=== PATIENT | male | born 1990 | race Caucasian/White ===

== ENCOUNTER 2019-01-23 11:04 | Emergency (ER) | payer OTHER, SELFPAY ==
[2019-01-23 11:05] VITALS: BP 163/102; PULSE 113; RESP 17; TEMP 36.2; O2SAT 97; BMI 35.2
--- NOTE | 2019-01-23 11:30 | RAD_ITS ---
STUDY: X-RAY - RIGHT ANKLE REASON FOR EXAM: Male, 28 years old. Lateral pain and swelling following a twisting injury. TECHNIQUE: 3 view(s) of the ankle. COMPARISON: None. FINDINGS: Nondisplaced avulsion type fracture of the posterior tibial malleolus. Nondisplaced oblique fracture of the lateral malleolus. Normal tibiotalar articulation and ankle mortise. Calcaneal spurs. The visualized subtalar, talonavicular, calcaneocuboid and tarsal articulations are normal. Lateral soft tissue swelling. RAD/Ankle min 3 Views IMPRESSION: Nondisplaced oblique fracture of the lateral malleolus and posterior malleolus of the distal tibia with diffuse soft tissue swelling. Electronically Signed: José Miguel Roberson, at 12:18 EDT , Service support ,
[2019-01-23 11:51] VITALS: RESP 14
--- NOTE | 2019-01-23 12:01 | ED.VISSUMM ---
- ER Visit Summary Date of Service: 01/23/19 Chief Complaint: Right ankle injury History of Present Illness: The patient is a 28 M who slipped today causing an injury to the right ankle. He states he heard a snap. He notes pain and swelling laterally to the ankle. Denies any other injuries. Physical Examination: There is pain and swelling over the lateral malleolus. No fifth metatarsal pain no fibular head pain. Neurovascular intact distal. There is no medial malleoli or posterior malleoli or pain. Test Results: X-rays revealed a nondisplaced distal fibular fracture. Emergency Department Course and Treatment: The patient will be given crutches and a walking boot. I will have him follow-up with podiatry. Impression: 1. Right distal fibula fracture This note was generated with [employer] dictation software. It may contain incorrect words, spelling, and punctuation that were not noted in review of the chart prior to signing ED Disposition - Plan for ED Patient: Disposition: Home or Assisted Living Instructions: ANKLE FRACTURE (Distal Fibula), closed Referrals: Arpit Bennett DPM [STAFF PHYSICIAN] - As soon as possible
[2019-01-23 12:35] VITALS: PULSE 102; RESP 17; O2SAT 100
== END 2019-01-23 12:36 | disposition home or self-care (01) ==
PROVIDERS: Emergency Provider Emergency Medicine; Family Provider Family Medicine; PCP Family Medicine
DX: S82.64XA Nondisplaced fracture of lateral malleolus of right fibula, initial encounter for closed fracture (principal); W01.0XXA Fall on same level from slipping, tripping and stumbling without subsequent striking against object, initial encounter; Y93.9 Activity, unspecified; Y92.9 Unspecified place or not applicable
CPT/HCPCS: 73610; 99284

== ENCOUNTER 2019-04-13 12:26 | Emergency (ER) | payer SELFPAY ==
[2019-04-13 12:28] VITALS: BP 140/70; PULSE 125; RESP 18; TEMP 36.2; O2SAT 97; BMI 36.9
--- NOTE | 2019-04-13 12:34 | RAD_ITS ---
STUDY: X-RAY - LEFT HAND REASON FOR EXAM: Injury of the middle finger from throwing. TECHNIQUE: 3 view(s) of the hand. COMPARISON: None. FINDINGS: Normal radiocarpal articulation. Normal distal radioulnar joint. Normal visualized carpal bones. Normal carpal articulations Normal carpometacarpal articulation of the thumb. Normal second through fifth carpometacarpal joints. Normal metacarpi. Normal metacarpophalangeal joint of the thumb. Normal interphalangeal joint of the thumb. Normal proximal and distal phalanges of the thumb. Normal metacarpophalangeal joints of the second through fifth fingers. There is dorsal dislocation of the third proximal interphalangeal joint with a very small osseous avulsion fracture at the palmar aspect of the articulation. There is soft tissue swelling over the third digit. RAD/Hand Min 3 Views IMPRESSION: Dorsal dislocation of the third proximal interphalangeal joint with very small avulsion fracture. Electronically Signed: Carter Villela MD at 13:02 EDT Tel , Service support ,
--- NOTE | 2019-04-13 12:38 | ED.VIS.GEN ---
History of Present Illness Chief Complaint: Upper Extremity Injury Informant: Patient Onset: Today Context: Sudden Onset Current Severity: Moderate Maximum Severity: Moderate Narrative: The patient presents to the emergency department with injury to his left middle finger. Patient states he was playing catch with his friend. He caught a football and it bent his finger back. He thinks that he may have dislocated his finger. The patient is right-hand dominant. He denies any other injury. He is otherwise been in his normal state of health. Prior similar symptoms: No Recent Illness/Hospitalization: No Past Medical History - Allergies and Home Meds Allergies/Adverse Reactions: Allergies No Known Allergies Allergy (Verified 04/13/19 12:29) Primary Care Physician: Karlos Mello MD [STAFF PHYSICIAN] - Prior records reviewed: Yes Past Medical History: None Surgical History: no surgical history Smoking Status: Unknown if ever smoked Review of Systems General: Denies: Chills, Fever, Sweats Eyes: Denies: Visual changes - bilaterally, Diplopia ENT: Denies: Rhinorrhea, Sore throat Cardiovascular: Denies: Chest pain, Palpitations Respiratory: Denies: Dyspnea, Cough, Dyspnea on exertion Gastrointestinal: Denies: Abdominal pain, Nausea, Vomiting, Diarrhea, Melena, Hematochezia Genitourinary: Denies: Dysuria, Hematuria, Frequency Musculoskeletal: Denies: Back pain, Extremity Pain Skin: Denies: Rash, Wounds Neurological: Denies: Headache, Weakness, Numbness Physical Exam Vital Signs/Narrative: Vital Signs Temp Pulse Resp BP Pulse Ox 04/13/19 12:28 97.2 F L 125 H 18 140/70 H 97 Inital Vital Signs reviewed: Yes General: Well nourished, Well developed, No Acute Distress Head: Normocephalic, Atraumatic Eyes: Perrl, EOMI ENT: Moist mucous membranes, No rhinorrhea Neck: Supple, Nontender Cardiovascular: Regular rate, Regular rhythm, No murmurs Respiratory: No distress, CTA bilaterally, Chest nontender Abdomen: Soft, Nontender, Nondistended, Normal bowel sounds Back: Nontender, Normal Inspection Extremities: No edema, Tenderness - Patient does have deformity at the PIP of the left third finger. Sensation is preserved to light touch. Skin: Normal color, No rash Neurological: Alert, Oriented x3, Cranial nerves II-XII grossly intact, Normal Strength, Normal Sensation Psychological: Normal affect, Normal Mood Diagnostic/Tx/Re-eval Clinical Impression(s) from Imaging Studies Hand X-Ray 04/13/19 12:34 IMPRESSION: Dorsal dislocation of the third proximal interphalangeal joint with very small avulsion fracture. Electronically Signed: Carter Villela MD at 13:02 EDT Tel , Service support , - Medical Decision Making The patient underwent plain films. There was a dorsal dislocation with a small avulsion fracture. The patient underwent digital block. With traction, the dislocation was able to reduced. The patient did have full range of motion. He had no further pain. He is placed in AlumaFoam splint. He will be given outpatient follow-up. Patient be discharged home. Impression 1. Dislocation of the left third PIP joint with reduction ED Disposition - Plan for ED Patient: Instructions: Dislocated Finger Referrals: Karlos Mello MD [STAFF PHYSICIAN] -
[2019-04-13] MEDS: Bupivacaine Mpf 0.5% 30 ML VIAL INFILT (13:00)
== END 2019-04-13 13:47 | disposition home or self-care (01) ==
LOC: ED 12:49
PROVIDERS: Emergency Provider Emergency Medicine
DX: S63.283A Dislocation of proximal interphalangeal joint of left middle finger, initial encounter (principal); W21.01XA Struck by football, initial encounter; Y93.89 Activity, other specified; Y99.8 Other external cause status
CPT/HCPCS: 26770; 73130; 99283

== ENCOUNTER 2023-03-22 09:31 | Emergency (ER) | payer SELFPAY ==
[2023-03-22 09:31] VITALS: BP 140/90; PULSE 108; RESP 18; TEMP 36.6; O2SAT 98; BMI 38.7
--- NOTE | 2023-03-22 10:04 | EDS_ITS ---
HPI History of Present Illness Chief Complaint: Laceration Informant: patient Narrative Narrative: [id number] male presents for right hand injury with laceration 45 minutes prior to arrival. Cleaning a fish tank tipped over glass broke however did not shatter. Laceration dorsal aspect right hand tetanus unknown. No anticoagulation medicines. Initial bleeding now controlled. History of fifth finger fracture in high school with pitting with healing deformities. This is chronic. Tetanus Immunization: Unknown [facility] Medical History (Updated 03/22/23 @ 11:[address] Topher Nolasco DO) Hx of fracture of ankle Home Medications NK 01/23/19 [History Last Taken Unknown] Allergy/AdvReac Type Severity Reaction Status Date / Time No Known Allergies Allergy Verified 04/13/19 12:29 Social History Smoking Status: Current some day smoker tobacco type: cigarettes ROS ROS ED Constitutional Constitutional ED: Denies chills, fever(s) or sweats Eyes Eyes: Denies change in vision ENT ENT ED: Denies dysphagia or sore throat Cardiovascular Cardiovascular: Denies chest pain, leg edema, palpitations or racing heartbeat Respiratory/Chest Respiratory/Chest: Denies cough, dyspnea or dyspnea on exertion Gastrointestinal Gastrointestinal: Denies abdominal pain, diarrhea, nausea or vomiting Genitourinary Genitourinary ED: Denies dysuria, hematuria or urinary frequency Musculoskeletal Musculoskeletal: Reports extremity pain; Denies back pain or neck pain Integumentary Reports wounds; Denies rash Neurologic Neurologic: Denies headache(s), paresthesias or weakness EXAM Physical Exam Const Vital Signs: 03/22/23 09:31 Temperature 97.9 F Temperature Source Temporal Pulse Rate 108 H Respiratory Rate 18 Blood Pressure 140/90 H Blood Pressure Mean 106 Pulse Ox 98 Oxygen Delivery Method Room Air Positive well nourished and well developed General Appearance ED: well developed and NAD HEENT Reports moist mucous membranes normocephalic and atraumatic Eyes PERRL, EOMs intact bilaterally and conjunctivae normal General Eye ED: Yes normal appearance of both eyes Neck no lymphadenopathy and supple General: Negative for tenderness Chest Wall Chest: Negative for tenderness Resp normal respiratory effort and normal air movement Effort and Inspection: symmetric chest movement; Negative for respiratory distress Cardio regular rate, regular rhythm and no murmurs Peripheral Pulses: pulses 2+ throughout GI normal to inspection, nondistended, normoactive bowel sounds and non-tender Palpation: Negative for guarding or rebound tenderness present Back/Spine no CVA tenderness and no thoracic nor lumbar tenderness Extremity Extremity Narrative: Right upper extremity: 1 cm laceration dorsal distal fifth metacarpal. No active bleeding. Chronic flexion deformity at the PIP joint. Able to extend at the MCP with no difficulties. Minimal tenderness distal metacarpal. General Extremety ED: Negative for edema or tenderness General Extremity: Negative for edema Neuro oriented x3 and no sensory deficits noted Sensorium / Orientation: awake and alert Skin no rashes or lesions noted and no wounds MDM MDM MDM Narrative Medical decision making narrative: Interventions / MDM: Differential diagnosis: Hand contusion, hand laceration Diagnosis considered but do not suspect: fracture: X-ray negative.. My EKG interpretation: N/A Imaging independently reviewed and interpreted by myself: Right hand x-ray 3 views: No fracture, no radiopaque foreign bodies External documents reviewed: N/A Test considered but not ordered:N/A ED course: Patient in injury with laceration. X-ray ordered tetanus updated. X-ray negative. Laceration repaired. Outpatient follow-up wound check and suture removal. All questions were answered. Procedure note: Normal sterile conditions. Verbal consent. 1 cc 1% lidocaine used for local analgesia. Copious flushing with normal saline 250 cc. Dark blood noted rebleed with flushing, two 5-0 nylon simple interrupted sutures placed with good approximation. Hemostasis achieved. Dressing placed by myself. Patient tolerated procedure well. Re-evaluation: stable Disposition discussed with patient/family/significant other: Patient Case discussed with consulting clinician: N/A This note was generated with [employer] dictation software. It may contain incorrect words, spelling, and punctuation that were not noted in checking the note before signing. Discharge Plan Triage Chief Complaint: Laceration ED Provider: Topher Nolasco Dx/Rx/DC Orders Clinical Impression: Tetanus toxoid vaccination administered at current visit, Laceration of right hand Instructions: ED Laceration, Hand: All Closures Prescriptions: No Action NK Primary Care Provider: Fransico Velasquez Referrals: Care Physician,No Primary [Non-Staff] - Activity Restrictions/Additional Instructions: X-ray negative for tetanus updated. 2 sutures placed to your hand. Follow-up with your doctor in 7 to 10 days for wound check and suture removal. Disposition Disposition: Home, Self Care Discharge Date/Time: 03/22/23 11:49
--- NOTE | 2023-03-22 10:27 | RAD_ITS ---
INDICATION: injury EXAMINATION/TECHNIQUE: X-RAY - RIGHT XR Hand Min 3 Views 3 VIEWS COMPARISON: None. FINDINGS: SOFT TISSUES: No soft tissue swelling or gas. No radiopaque foreign body. BONES/JOINTS: Old fracture of the head of the fifth metacarpal and proximal phalanx of the fifth finger. The remainder of the osseous structures appear intact. No demonstrated acute fracture. Preservation of the joint space.. No sclerotic or destructive changes observed. RAD/Hand Min 3 Views IMPRESSION: No demonstrated acute fracture. Electronically Signed: Foreign Wells MD at 10:45 EDT ,
[2023-03-22] MEDS: Diphth,Pertuss(Acell),Tet Vac 0.5 ML Vial IM (10:31)
[2023-03-22] MEDS: Lidocaine 1% (20 ml mdv) 20 ML Vial INFILT (10:53)
== END 2023-03-22 11:49 | disposition home or self-care (01) ==
PROVIDERS: Emergency Provider Emergency Medicine; PCP Family Medicine; Visit Provider Emergency Medicine
DX: S61.411A Laceration without foreign body of right hand, initial encounter (principal); F17.210 Nicotine dependence, cigarettes, uncomplicated; W25.XXXA Contact with sharp glass, initial encounter; Z23 Encounter for immunization
CPT/HCPCS: 12001; 73130; 90715; 99282

== ENCOUNTER → 2024-08-31 | Outpatient (CLI) | payer SELFPAY ==
[2024-08-31 13:45] LABS: Absolute Lymphocyte Count 1.83 X10^3/uL (0.83-4.51); Basophil# 0.06 X10^3/uL; Basophil% 0.9 % (0-1); Eosinophil# 0.17 X10^3/uL; Eosinophils% 2.4 % (0-5); Hematocrit 51.9 % (40-54); Hemoglobin 17.2 g/dL (13.0-16.5); Lymphocyte # 1.83 X10^3/ul (0.83-4.51); Lymphocyte % 26.3 % (19-41); Mean Corp Hgb Conc 33.1 g/dL (32-36); Mean Corpuscular Hgb 29.6 pg (27.0-32.0); Mean Corpuscular Volume 89.2 fL (80-94); Mean Platelet Vol. 9.5 fl (6.2-12.0); Monocyte# 0.82 X10^3/uL; Monocyte% 11.8 % (0-10); NRBC Flagged by Analyzer 0 % (0-5); Neutrophil # 4.04 X10^3/uL (2.7-7.7); Platelet Count 212 K/mm3 (150-450); RBC Distribution Width CV 13.3 % (11.6-14.6); RBC Distribution Width SD 43.5 fl (35.1-43.9); Red Blood Count 5.82 M/mm3 (4.6-6.2)
[2024-08-31 13:48] LABS: AST(SGOT) 45 U/L (15-37); Alanine Aminotransfer ALT/SGPT 72 U/L (16-61); Albumin, Serum 3.7 g/dL (3.2-5.0); Alkaline Phosphatase 73 U/L (45-117); Anion Gap 6 (5-15); BUN 10 mg/dL (7-18); BUN/Creat Ratio 10.8 RATIO (10-20); Chloride 106 mmol/L (98-107); Cholesterol 198 mg/dL (200); Creatinine, Serum 0.92 mg/dL (0.70-1.30); EST Glomerular Filtration Rate 100 mL/min (>60); Est Glom Filt Rate - Afr Amer 121 mL/min (>60); Globulin 3.6 g/dL (2.2-4.2); Glucose 95 mg/dL (74-106); High Density Lipoprotein 40 mg/dL; Potassium 3.8 mmol/L (3.5-5.1); Protein, Total 7.3 g/dL (6.4-8.2); Sodium Level 140 mmol/L (136-145); Triglycerides 183 mg/dL; Very Low Density Lipoprotein 37 mg/dL (5-40)
[2024-08-31 14:06] LABS: Vitamin D,25 Hydroxy 6.7 ng/mL
== END | disposition home or self-care (01) ==
LOC: BFHLAB 11:21
PROVIDERS: PCP Family Medicine; Referring Provider Family Medicine; Visit Provider Family Medicine
DX: Z00.01 Encounter for general adult medical examination with abnormal findings (principal); R53.83 Other fatigue
CPT/HCPCS: 36415; 80053; 80061; 82306; 85025

== ENCOUNTER → 2024-10-29 | Outpatient (CLI) | payer MEDICAID, SELFPAY ==
[2024-10-29 12:49] LABS: Erythrocyte Sedimentation Rate 4 mm/hr (0-20)
[2024-10-29 13:14] LABS: AST(SGOT) 33 U/L (<=37); Alanine Aminotransfer ALT/SGPT 50 U/L (<=46); Albumin, Serum 4.3 g/dL (3.5-5.0); Alkaline Phosphatase 77 U/L (40-129); Bilirubin, Direct 0.15 mg/dL (0.00-0.30); Globulin 2.6 g/dL (2.2-4.2); Protein, Total 6.9 g/dL (5.9-8.4); Total Bilirubin 0.39 mg/dL (0.00-1.30)
[2024-10-29 14:08] LABS: CRP < 3.00 mg/L (0.0-3.0)
[2024-10-30 16:08] LABS: Endomysial Antibody IgA Negative (Negative); Immunoglobulin A 311 mg/dL (90-386); t-Transglutaminase IgA <2 U/mL (0-3)
== END | disposition home or self-care (01) ==
LOC: BFHLAB 09:06
PROVIDERS: PCP Family Medicine; Visit Provider Nurse Practitioner Family
DX: R19.7 Diarrhea, unspecified (principal); R74.8 Abnormal levels of other serum enzymes; R63.5 Abnormal weight gain
CPT/HCPCS: 36415; 80076; 82784; 83516; 84439; 84443; 85652; 86003; 86005; 86140; 86255

== ENCOUNTER → 2024-12-12 | Outpatient (CLI) | payer MEDICAID, SELFPAY | END | disposition home or self-care (01) | LOC: MTLAB 12:37 | PROVIDERS: PCP Family Medicine; Referring Provider Nurse Practitioner Family; Visit Provider Nurse Practitioner Family | DX: R19.7 Diarrhea, unspecified (principal) | CPT/HCPCS: 83630; 87177; 87209; 87493; 87506 ==

== ENCOUNTER 2024-12-25 06:58 | Day surgery (SDC) | payer MEDICAID, SELFPAY ==
[2024-12-25] VITALS (7 sets, daily range): BP systolic 110–133; BP diastolic 62–89; PULSE 72–90; RESP 16–18; TEMP 36.2–37.1; O2SAT 96–100; BMI 42.2
--- OUTSIDE RECORDS SUMMARY | 2024-12-25 07:02 | XMS RPT_ITS | CCD ---
Author Organization [facility] Care Team Providers Care Pet Stylist Name Role Phone Dr. Fransico Velasquez DO Primary Care Provider Dr. Fransico Velasquez DO Attending Provider Dr. Fransico Velasquez DO Referring Provider Antwan NUTRITIONAL HEALTH COACH-C, Vi Attending Provider Antwan NUTRITIONAL HEALTH COACH-C, Vi Referring Provider [phone] Yasir MIJARES, Dr. Cam Charles Attending Provider Fransico Velasquez Primary Care Unavailable Vi Moncada Attending Unavailable Fransico Velasquez Referring Unavailable Fransico Velasquez Attending Unavailable Fransico Velasquez Primary Care Unavailable Fransico Velasquez Primary Care Unavailable Fransico Velasquez Referring Unavailable Cam Cooley Attending Unavailable Fransico Velasquez Primary Care Unavailable Fransico Velasquez Referring Unavailable Cam Cooley Attending Unavailable Fransico Velasquez Primary Care Unavailable Vi Moncada Referring Unavailable Vi Moncada Attending Unavailable Medications Current Medications Medication Drug Class(es) Dates Sig (Normalized) Sig (Original) cholecalciferol 0.125 mg oral capsule (2 sources) Vitamin D Start: 12-13-2024 take 1 capsule by mouth once daily Cholecalciferol (Vitamin D3) 125 mcg (5,000 unit) capsule Active 125 ug PO daily December 13, 2024 12:00am FLUoxetine 40 mg oral capsule (2 sources) Serotonin Reuptake Inhibitor Start: 12-13-2024 take 1 capsule by mouth at bedtime Fluoxetine 40 mg capsule Active 40 mg PO AT BEDTIME December 13, 2024 12:00am pantoprazole 20 mg delayed release oral tablet (2 sources) Proton Pump Inhibitor Start: 12-13-2024 take 1 tablet by mouth once daily in the morning Pantoprazole 20 mg tablet,delayed release (DR/EC) Active 20 mg PO EVERY MORNING December 13, 2024 12:00am Problems Problem Classification Problem Date Documented Da te Episodic/Chronic Abdominal pain (2 sources) Abdominal pain; Translations: [Unspecified abdominal pain] 12-13-2024 Episodic Esophageal disorders (2 sources) Gastroesophageal reflux disease; Translations: [Gastro-esophageal reflux disease without esophagitis] 12-13-2024 Chronic Immunizations and screening for infectious disease (4 sources) Tetanus toxoid vaccination given; Translations: [Encounter for immunization] 03-22-2023 Episodic Open wounds of extremities (4 sources) Laceration of hand; Translations: [Laceration without foreign body of right hand, initial encounter] 03-22-2023 Episodic Other gastrointestinal disorders (3 sources) Diarrhea; Translations: [Diarrhea, unspecified] 12-13-2024 Episodic Other gastrointestinal disorders (1 source) Diarrhea, unspecified; Translations: [Diarrhea, unspecified] Onset: Episodic Results Test Name Value Interpretation Reference Range Facility [facility] 8623on OP OVA AND PARASITES EXAM, ROUTINE These results were obtained using wet preparation(s) and trichrome stained smear. This test does not include testing for Crytosporidium parvum, Cyclospora, or Microsporidia. One negative specimen does not rule out the possibility of a parasitic infection. TESTING PERFORMED AT [facility]. ORIGINAL REPORT ON FILE IN LAB CONTAINS ADDITIONAL TEST SITE INFORMATION. Ova/Parasite Exam NO OVA, CYSTS, OR PARASITES FOUND. [facility] Comment on above: Performed By: #### L 101.9900, L5530.0009, L5530.0399, L5530.1389, L5530.1169, L501.6710, L501.9520, L5530.1649, L3410.2400, L5530.1669, L5530.1399, L500.3400, L5530.0569, L5530.1479, L5530.1319, L506.0400, L5500.0550, L5530.0479, L5530.0169 #### [facility] [address] [place], [place], [id number] CDIFF (PCR)on 12-13-2024 CDIFF Pending [phone] Presumptive Negative *for epidemiolologic???us e C. Diff PCR Negative- No toxigenic C. Diff Detected Normal [facility] Comment on above: Performed By: #### L 101.9900, L5530.0009, L5530.0399, L5530.1389, L5530.1169, L501.6710, L501.9520, L5530.1649, L3410.2400, L5530.1669, L5530.1399, L500.3400, L5530.0569, L5530.1479, L5530.1319, L506.0400, L5500.0550, L5530.0479, L5530.0169 #### [facility] [address] [place], [place], [id number] ENTERIC PATHOGEN PANEL STOOL on 12-13-2024 EP PANEL Normal Reference Range = Not Detected Not detected for Campylobacter group, Salmonella species, Shigella species, Vibrio Group, Yersinia enterocolitica, EHEC (Shiga Toxin 1, Shiga Toxin 2), Norovirus Gl/Gll, and Rotavirus A. Other common stool pathogens are not detected on this panel include: Aeromonas/Plesiomona s or parasites. Order testing for these organisms separately if suspected. This is an amplified DNA test which makes it both specific and sensitive. CAMPYLOBACTER Not Detected Norovirus Not Detected Rotavirus Not Detected Salmonella Not Detected Shiga Toxin Not Detected Shigella sp. Not Detected VIBRIO Not Detected Yersinia Not Detected Normal [facility] Comment on above: Performed By: #### L 101.9900, L5530.0009, L5530.0399, L5530.1389, L5530.1169, L501.6710, L501.9520, L5530.1649, L3410.2400, L5530.1669, L5530.1399, L500.3400, L5530.0569, L5530.1479, L5530.1319, L506.0400, L5500.0550, L5530.0479, L5530.0169 #### [facility] [address] [place], [address] Stool Lactoferrin/WBCon - WBCST Normal Reference Range = Negative Fecal WBC Lactoferrin Negative: No Fecal WBC Lactoferrin present Normal [facility] Comment on above: Performed By: #### L 101.9900, L5530.0009, L5530.0399, L5530.1389, L5530.1169, L501.6710, L501.9520, L5530.1649, L3410.2400, L5530.1669, L5530.1399, L500.3400, L5530.0569, L5530.1479, L5530.1319, L506.0400, L5500.0550, L5530.0479, L5530.0169 #### [facility] [address] [place], [place], [address] Surgery Visit Reporton 12-13 Surgery Visit Report [facility] [address] [place] [address] OFFICE VISIT Date of Service: 12/13/24 MR#: [id number] Acct: [id number] Name: CYNDEE ROSS Rep #: [id number] : 1990 Provider: Dr. Cam hugo MD Age/Sex: 34/M Location: [facility] Status: Signed Intake Vital Signs 03/22/23 09:31 12/13/24 13:27 Height 5 ft 11 in 5 ft 10 in Weight: 304 lb BMI 43.6 BP 133/79 H Blood Pressure Location Rt brachial Position Sitting Respiration 18 Pulse 71 Pulse Source Monitor Temp 97.9 F Temp Source Temporal Pulse Oximetry (%) 97 Oxygen Delivery Method room air Intake Visit Reasons: DIARRHEA/GAS Chief Complaint: diarrhea/ gas Is patient in pain?: No Allergies No Known Allergies Allergy (Verified 12/13/24 13:28) Medications ???Medication ???Instructions ???Recorded ???Confirmed ???Type cholecalciferol (vitamin D3) 125 125 mcg PO QDAY 12/13/24 12/13/24 History mcg (5,000 unit) capsule fluoxetine 40 mg capsule 40 mg PO QHS 12/13/24 12/13/24 His tory pantoprazole 20 mg tablet,delayed 20 mg PO QAM 12/13/24 12/13/24 Hi story release PFSH Medical History (Updated 12/13/24 @ 13:27 by Danika Connolly LPN) Hx of fracture of finger Acid reflux Abdominal pain Diarrhea Hx of fracture of ankle Social History (Updated 12/13/24 @ 13:27 by Danika Connolly LPN) Smoking Status: Current some day smoker tobacco type: e-cigarettes alcohol intake: never substance use type: does not use HPI HPI HPI: The patient is a 34-year-old male who is being seen today for issues with chronic diarrhea and flatulence. He states that this has been an ongoing problem for probably years in retrospect. He states that he typically will have 4-5 bouts of diarrhea daily. This may not be every day but this seems to be the case more days than not in any given week. It sounds as though he is undergoing a workup by his primary care provider and thus far workup has been negative. It sounds as though his stools were just recently sent off for cultures but no results have been resulted at this point. He was recommended to have a diagnostic colonoscopy to further evaluate his symptoms. He denies any black or tarry stools. No mucus in his stools. He denies any family history of colon polyps or colon cancers. No family history of Crohn's disease or ulcerative colitis etc. He states he has tried Imodium without any success long-term. This may improve his symptoms for less than a day only to have recurrence of diarrhea. He has not noticed any certain types of foods that are more problematic. He presents today to discuss colonoscopy. ROS General General: Yes fatigue; No weight change, appetite, colon cancer, breast cancer or weakness HEENT HEENT: No difficulty swallowing, eye injury, eye surgery, swollen glands or hoarseness Endo Endocrine: No thyroid disease, diabetes mellitus, thyroid cancer, Hair loss, heat intolerance or cold intolerance Skin Skin: No rash or changing moles Musc Musculoskeletal: Yes back problems; No arthritis, rheumatoid arthritis, gout or joint pain Cardio Cardiovascular: No murmur, pacemaker, heart disease, atrial fibrillation, high blood pressure, heart attack, heart stent, palpitations, shortness of breath with exertion or chest pain Psych Psychiatric: Yes depression and anxiety; No hearing voices Resp Respiratory: No shortness of breath, No sleep apnea, No cough, No COPD, No asthma, No emphysema and No wheezing Gastro Gastrointestinal: Yes abdominal pain, No nausea or vomiting, Yes diarrhea, No constipation, No blood in stool, Yes acid reflux, No hemorrhoids, No ulcers, No gallbladder problem and No black,tarry stools Marty Hematologic: No blood thinners, No blood disorders, No bleeding, No anemia and No blood clots Neuro Neurologic: No numbness, No tingling and No weakness Exam Const General: cooperative, healthy appearing and no acute distress Nutritional Appearance: obese and overweight [facility] Head: normal to inspection Eyes General: appearance normal, both eyes and all related structures Neck Neck: normal visual inspection Resp Effort Inspection: normal respiratory effort and able to speak in complete sentences GI Inspection: normal to inspection Assessment and Plan Assessment and Plan (1) Diarrhea: Status: Acute Plan: Patient is a 34-year-old male who is being seen today with complaints of diarrhea and flatulence. Workup thus far has been unremarkable. He has not had a colonoscopy. No obvious family history of any GI related issues. I have offered him a colonoscopy with biopsies. We discussed the details of the planned procedure as well as risks benefits and alternatives. He wishes to proceed. This will be schedul (more content not included)... Normal [facility] Clostridium difficile detect ion by polymerase chain reactionOrdered By: Vi Moncada on 12-12-2024 C. difficile DNA ANDERSON+probe Ql (Unsp spec) [facility] Stool lactoferrin detection by immunoassayOrdered By: Vi Moncada on 12-12-2024 Lactoferrin IA Ql (Stl) [facility] Beefon 11-07-2024 BEEF TNP [facility] Comment on above: Performed By: #### L 101.9900, L5530.0009, L5530.0399, L5530.1389, L5530.1169, L501.6710, L501.9520, L5530.1649, L3410.2400, L5530.1669, L5530.1399, L500.3400, L5530.0569, L5530.1479, L5530.1319, L506.0400, L5500.0550, L5530.0479, L5530.0169 #### [facility] [address] [place], [place], [id number] [facility] 11-07-2024 CORN [facility] Comment on above: Performed By: #### L 101.9900, L5530.0009, L5530.0399, L5530.1389, L5530.1169, L501.6710, L501.9520, L5530.1649, L3410.2400, L5530.1669, L5530.1399, L500.3400, L5530.0569, L5530.1479, L5530.1319, L506.0400, L5500.0550, L5530.0479, L5530.0169 #### [facility] [address] [place], [place], [id number] [facility] 11-07-2024 PEANUT TNP [facility] Comment on above: Performed By: #### L 101.9900, L5530.0009, L5530.0399, L5530.1389, L5530.1169, L501.6710, L501.9520, L5530.1649, L3410.2400, L5530.1669, L5530.1399, L500.3400, L5530.0569, L5530.1479, L5530.1319, L506.0400, L5500.0550, L5530.0479, L5530.0169 #### [facility] [address] [place], [place], [id number] Porkon 11-07-2024 PORK TNP Normal [facility] Comment on above: Performed By: #### L 101.9900, L5530.0009, L5530.0399, L5530.1389, L5530.1169, L501.6710, L501.9520, L5530.1649, L3410.2400, L5530.1669, L5530.1399, L500.3400, L5530.0569, L5530.1479, L5530.1319, L506.0400, L5500.0550, L5530.0479, L5530.0169 #### [facility] [address] [place], [place], [id number] Soybeanon 11-07-2024 SOYBEAN TNP Normal [facility] Comment on above: Performed By: #### L 101.9900, L5530.0009, L5530.0399, L5530.1389, L5530.1169, L501.6710, L501.9520, L5530.1649, L3410.2400, L5530.1669, L5530.1399, L500.3400, L5530.0569, L5530.1479, L5530.1319, L506.0400, L5500.0550, L5530.0479, L5530.0169 #### [facility] [address] [place], [place], [address] Nora 11-07-2024 WHEAT TNP Normal [facility] Comment on above: Performed By: #### L 101.9900, L5530.0009, L5530.0399, L5530.1389, L5530.1169, L501.6710, L501.9520, L5530.1649, L3410.2400, L5530.1669, L5530.1399, L500.3400, L5530.0569, L5530.1479, L5530.1319, L506.0400, L5500.0550, L5530.0479, L5530.0169 #### [facility] [address] [place], [place], [address] Almondon 11-05-2024 ALMOND <0.10 Normal Class 0 [facility] Comment on above: Performed By: #### L 101.9900, L5530.0009, L5530.0399, L5530.1389, L5530.1169, L501.6710, L501.9520, L5530.1649, L3410.2400, L5530.1669, L5530.1399, L500.3400, L5530.0569, L5530.1479, L5530.1319, L506.0400, L5500.0550, L5530.0479, L5530.0169 #### [facility] [address] [facility] [address] [address] [place], [place], [address] Chickenon 11-05-2024 CHICKEN <0.10 Normal Class 0 [facility] Comment on above: Performed By: #### L 101.9900, L5530.0009, L5530.0399, L5530.1389, L5530.1169, L501.6710, L501.9520, L5530.1649, L3410.2400, L5530.1669, L5530.1399, L500.3400, L5530.0569, L5530.1479, L5530.1319, L506.0400, L5500.0550, L5530.0479, L5530.0169 #### [facility] [address] [place], [place], [id number] Egg, Whiteon 11-05-2024 EGG, WHITE <0.10 Normal Class 0 [facility] Comment on above: Performed By: #### L 101.9900, L5530.0009, L5530.0399, L5530.1389, L5530.1169, L501.6710, L501.9520, L5530.1649, L3410.2400, L5530.1669, L5530.1399, L500.3400, L5530.0569, L5530.1479, L5530.1319, L506.0400, L5500.0550, L5530.0479, L5530.0169 #### [facility] [address] [place], [place], [id number] (933) L5500.0550on 11-05-2024 BEEF <0.10 Normal Class 0 [facility] Comment on above: Performed By: #### L 101.9900, L5530.0009, L5530.0399, L5530.1389, L5530.1169, L501.6710, L501.9520, L5530.1649, L3410.2400, L5530.1669, L5530.1399, L500.3400, L5530.0569, L5530.1479, L5530.1319, L506.0400, L5500.0550, L5530.0479, L5530.0169 #### [facility] [address] [place], [place], [id number] (826) CHOCOLATE <0.10 Normal Class 0 [facility] Comment on above: Performed By: #### L 101.9900, L5530.0009, L5530.0399, L5530.1389, L5530.1169, L501.6710, L501.9520, L5530.1649, L3410.2400, L5530.1669, L5530.1399, L500.3400, L5530.0569, L5530.1479, L5530.1319, L506.0400, L5500.0550, L5530.0479, L5530.0169 #### [facility] [address] [place], [place], [id number] CODFISH <0.10 Normal Class 0 [facility] Comment on above: Performed By: #### L 101.9900, L5530.0009, L5530.0399, L5530.1389, L5530.1169, L501.6710, L501.9520, L5530.1649, L3410.2400, L5530.1669, L5530.1399, L500.3400, L5530.0569, L5530.1479, L5530.1319, L506.0400, L5500.0550, L5530.0479, L5530.0169 #### [facility] [address] [place], [address] COMMENT Comment Normal . [facility] Comment on above: Result Comment: Maegan sprague of Specific IgE Class Description of Class ----- < 0.10 0 Negative 0.10 - 0.31 0/I Equivocal/Low 0.32 - 0.55 I Low 0.56 - 1.40 II Moderate 1.41 - 3.90 III High 3.91 - 19.00 IV Very High 19.01 - 100.00 V Very High >100.00 Very High Performed By: #### L 101.9900, L5530.0009, L5530.0399, L5530.1389, L5530.1169, L501.6710, L501.9520, L5530.1649, L3410.2400, L5530.1669, L5530.1399, L500.3400, L5530.0569, L5530.1479, L5530.1319, L506.0400, L5500.0550, L5530.0479, L5530.0169 #### [facility] [address] [place], [address] CORN <0.10 Normal Class 0 [facility] Comment on above: Performed By: #### L 101.9900, L5530.0009, L5530.0399, L5530.1389, L5530.1169, L501.6710, L501.9520, L5530.1649, L3410.2400, L5530.1669, L5530.1399, L500.3400, L5530.0569, L5530.1479, L5530.1319, L506.0400, L5500.0550, L5530.0479, L5530.0169 #### [facility] [address] [place], [place], [id number] (886) EGG, WHOLE <0.10 Normal Class 0 [facility] Comment on above: Performed By: #### L 101.9900, L5530.0009, L5530.0399, L5530.1389, L5530.1169, L501.6710, L501.9520, L5530.1649, L3410.2400, L5530.1669, L5530.1399, L500.3400, L5530.0569, L5530.1479, L5530.1319, L506.0400, L5500.0550, L5530.0479, L5530.0169 #### [facility] [address] [place], [address] MILK (COW) <0.10 Normal Class 0 [facility] Comment on above: Performed By: #### L 101.9900, L5530.0009, L5530.0399, L5530.1389, L5530.1169, L501.6710, L501.9520, L5530.1649, L3410.2400, L5530.1669, L5530.1399, L500.3400, L5530.0569, L5530.1479, L5530.1319, L506.0400, L5500.0550, L5530.0479, L5530.0169 #### [facility] [address] [place], [place], [id number] MUSSELS <0.10 Normal Class 0 [facility] Comment on above: Performed By: #### L 101.9900, L5530.0009, L5530.0399, L5530.1389, L5530.1169, L501.6710, L501.9520, L5530.1649, L3410.2400, L5530.1669, L5530.1399, L500.3400, L5530.0569, L5530.1479, L5530.1319, L506.0400, L5500.0550, L5530.0479, L5530.0169 #### [facility] [address] [place], [place], [id number] (675) PEANUT <0.10 Normal Class 0 [facility] Comment on above: Performed By: #### L 101.9900, L5530.0009, L5530.0399, L5530.1389, L5530.1169, L501.6710, L501.9520, L5530.1649, L3410.2400, L5530.1669, L5530.1399, L500.3400, L5530.0569, L5530.1479, L5530.1319, L506.0400, L5500.0550, L5530.0479, L5530.0169 #### [facility] [place], [place], [id number] (582) PORK <0.10 Normal Class 0 [facility] Comment on above: Performed By: #### L 101.9900, L5530.0009, L5530.0399, L5530.1389, L5530.1169, L501.6710, L501.9520, L5530.1649, L3410.2400, L5530.1669, L5530.1399, L500.3400, L5530.0569, L5530.1479, L5530.1319, L506.0400, L5500.0550, L5530.0479, L5530.0169 #### [facility] [place], [place], [id number] SALMON <0.10 Normal Class 0 [facility] Comment on above: Performed By: #### L 101.9900, L5530.0009, L5530.0399, L5530.1389, L5530.1169, L501.6710, L501.9520, L5530.1649, L3410.2400, L5530.1669, L5530.1399, L500.3400, L5530.0569, L5530.1479, L5530.1319, L506.0400, L5500.0550, L5530.0479, L5530.0169 #### [facility] [address] [place], [address] SHRIMP <0.10 Normal Class 0 [facility] Comment on above: Performed By: #### L 101.9900, L5530.0009, L5530.0399, L5530.1389, L5530.1169, L501.6710, L501.9520, L5530.1649, L3410.2400, L5530.1669, L5530.1399, L500.3400, L5530.0569, L5530.1479, L5530.1319, L506.0400, L5500.0550, L5530.0479, L5530.0169 #### [facility] [facility] [place], [address] SOYBEAN <0.10 Normal Class 0 [facility] Comment on above: Performed By: #### L 101.9900, L5530.0009, L5530.0399, L5530.1389, L5530.1169, L501.6710, L501.9520, L5530.1649, L3410.2400, L5530.1669, L5530.1399, L500.3400, L5530.0569, L5530.1479, L5530.1319, L506.0400, L5500.0550, L5530.0479, L5530.0169 #### [facility] [facility] [place], [address] TUNA <0.10 Normal Class 0 [facility] Comment on above: Performed By: #### L 101.9900, L5530.0009, L5530.0399, L5530.1389, L5530.1169, L501.6710, L501.9520, L5530.1649, L3410.2400, L5530.1669, L5530.1399, L500.3400, L5530.0569, L5530.1479, L5530.1319, L506.0400, L5500.0550, L5530.0479, L5530.0169 #### [facility] [address] [place], [place], [id number] WHEAT <0.10 Normal Class 0 [facility] Comment on above: Performed By: #### L 101.9900, L5530.0009, L5530.0399, L5530.1389, L5530.1169, L501.6710, L501.9520, L5530.1649, L3410.2400, L5530.1669, L5530.1399, L500.3400, L5530.0569, L5530.1479, L5530.1319, L506.0400, L5500.0550, L5530.0479, L5530.0169 #### [facility] [address] [place], [place], [id number] Riceon 11-05-2024 RICE <0.10 Normal Class 0 [facility] Comment on above: Performed By: #### L 101.9900, L5530.0009, L5530.0399, L5530.1389, L5530.1169, L501.6710, L501.9520, L5530.1649, L3410.2400, L5530.1669, L5530.1399, L500.3400, L5530.0569, L5530.1479, L5530.1319, L506.0400, L5500.0550, L5530.0479, L5530.0169 #### [facility] [address] [place], [place], [address] Ryeon 11-05-2024 RYE <0.10 Normal Class 0 [facility] Comment on above: Performed By: #### L 101.9900, L5530.0009, L5530.0399, L5530.1389, L5530.1169, L501.6710, L501.9520, L5530.1649, L3410.2400, L5530.1669, L5530.1399, L500.3400, L5530.0569, L5530.1479, L5530.1319, L506.0400, L5500.0550, L5530.0479, L5530.0169 #### [facility] [address] [place], [place], [id number] Lincoln, (Food)on 11-05-2024 WAL[place],(Food) <0.10 Normal Class 0 [facility] Comment on above: Result Comment: Perf ormed at: - [facility] [id number] Rake Operator: Ralph Peterson MD, Phone: [phone] Performed By: #### L 101.9900, L5530.0009, L5530.0399, L5530.1389, L5530.1169, L501.6710, L501.9520, L5530.1649, L3410.2400, L5530.1669, L5530.1399, L500.3400, L5530.0569, L5530.1479, L5530.1319, L506.0400, L5500.0550, L5530.0479, L5530.0169 #### [facility] [address] [place], [address] Celiac Disease Profileon ENDOMYSIAL IGA Negative Normal Negative [facility] [facility] Comment on above: Performed By: #### L 101.9900, L5530.0009, L5530.0399, L5530.1389, L5530.1169, L501.6710, L501.9520, L5530.1649, L3410.2400, L5530.1669, L5530.1399, L500.3400, L5530.0569, L5530.1479, L5530.1319, L506.0400, L5500.0550, L5530.0479, L5530.0169 #### [facility] [address] [place], [address] IMMUNOGLOB A QN 311 mg/dL Normal 90-386 [facility] Comment on above: Result Comment: Perf ormed at: [facility] [address] [id number] Rake Operator: Julian Meza PhD, Phone: [phone] Performed By: #### L 101.9900, L5530.0009, L5530.0399, L5530.1389, L5530.1169, L501.6710, L501.9520, L5530.1649, L3410.2400, L5530.1669, L5530.1399, L500.3400, L5530.0569, L5530.1479, L5530.1319, L506.0400, L5500.0550, L5530.0479, L5530.0169 #### [facility] [address] [place], [address] tTG IGA <2 Normal 0-3 [facility] Comment on above: Result Comment: Nega tive 0 - 3 Weak Positive 4 - 10 Positive >10 Tissue Transglutaminase (tTG) has been identified as the endomysial antigen. Studies have demonstr- ated that endomysial IgA antibodies have over 99% specificity for gluten sensitive enteropathy. Performed By: #### L 101.9900, L5530.0009, L5530.0399, L5530.1389, L5530.1169, L501.6710, L501.9520, L5530.1649, L3410.2400, L5530.1669, L5530.1399, L500.3400, L5530.0569, L5530.1479, L5530.1319, L506.0400, L5500.0550, L5530.0479, L5530.0169 #### [facility] [address] [facility] [place], [address] Bilirubin directOrdered By: Vi Moncada on 10-29-2024 Bilirubin.direct [Mass/Vol] 0.15 mg/dL 0.00-0.30 [facility] Bilirubin, totalOrdered By: Vi Moncada on 10-29-2024 Bilirubin [Mass/Vol] 0.39 mg/dL 0.00-1.30 [facility] CRPon 10-29-2024 C-REACTIVE PROT < 3.00 Normal 0.0-3.0 [facility] Comment on above: Order Comment: PAULA HERRMANN WAS GIVEN STOOL KIT TO BE RETURNED Performed By: #### L 101.9900, L5530.0009, L5530.0399, L5530.1389, L5530.1169, L501.6710, L501.9520, L5530.1649, L3410.2400, L5530.1669, L5530.1399, L500.3400, L5530.0569, L5530.1479, L5530.1319, L506.0400, L5500.0550, L5530.0479, L5530.0169 #### [facility] [address] [place], [place], [id number] CRP [Mass/Vol]Ordered By: Ra vale Moncada on 10-29-2024 C-Reactive Protein Extended Range < 3.00 mg/L 0.0-3.0 [facility] Endomysial IgA antibody assa yOrdered By: Vi Moncada on 10-29-2024 Endomysial IgA Antibody Negative Negative [facility] Erythrocyte Sed Rateon 10-29 SED RATE 4 mm/hr Normal 0-20 [facility] Comment on above: Performed By: #### L 101.9900, L5530.0009, L5530.0399, L5530.1389, L5530.1169, L501.6710, L501.9520, L5530.1649, L3410.2400, L5530.1669, L5530.1399, L500.3400, L5530.0569, L5530.1479, L5530.1319, L506.0400, L5500.0550, L5530.0479, L5530.0169 #### [facility] [address] [place], [place], [id number] Erythrocyte sedimentation ra teOrdered By: Vi Moncada on 10-29-2024 ESR (Bld) [Velocity] 4 mm/h 0-20 [facility] IgA [Mass/Vol]Ordered By: Ra vale Moncada on 10-29-2024 Immunoglobulin A 311 mg/dL 90-386 [facility] Comment on above: Performed at: - [address] [id number] Director: Julian Meza PhD, Phone: [phone] Laboratory - Chemistry and C hemistry - challengeOrdered By: Vi Moncada on 10-29-2024 AST [Catalytic activity/Vol] 33 U/L <38 [facility] - Miscellaneous t estsOrdered By: Vi Moncada on 10-29-2024 Service comment (Unsp spec) [Interp] Comment . [facility] Comment on above: Levels of Specific I gE Class Description of Class ----- < 0.10 0 Negative 0.10 - 0.31 0/I Equivocal/Low 0.32 - 0.55 I Low 0.56 - 1.40 II Moderate 1.41 - 3.90 III High 3.91 - 19.00 IV Very High 19.01 - 100.00 V Very High >100.00 Very High Liver Profileon 10-29-2024 Albumin [Mass/Vol] 4.3 g/dL Normal 3.5-5.0 [facility] Comment on above: Order Comment: PAULA NT WAS GIVEN STOOL KIT TO BE RETURNED Performed By: #### L 101.9900, L5530.0009, L5530.0399, L5530.1389, L5530.1169, L501.6710, L501.9520, L5530.1649, L3410.2400, L5530.1669, L5530.1399, L500.3400, L5530.0569, L5530.1479, L5530.1319, L506.0400, L5500.0550, L5530.0479, L5530.0169 #### [facility] [address] [place], [place], [id number] ALK PHOS 77 U/L Normal 40-129 [facility] Comment on above: Order Comment: PAULA NT WAS GIVEN STOOL KIT TO BE RETURNED Performed By: #### L 101.9900, L5530.0009, L5530.0399, L5530.1389, L5530.1169, L501.6710, L501.9520, L5530.1649, L3410.2400, L5530.1669, L5530.1399, L500.3400, L5530.0569, L5530.1479, L5530.1319, L506.0400, L5500.0550, L5530.0479, L5530.0169 #### [facility] [address] [place], [place], [id number] ALT [Catalytic activity/Vol] 50 U/L High <=46 [facility] Comment on above: Order Comment: PAULA NT WAS GIVEN STOOL KIT TO BE RETURNED Performed By: #### L 101.9900, L5530.0009, L5530.0399, L5530.1389, L5530.1169, L501.6710, L501.9520, L5530.1649, L3410.2400, L5530.1669, L5530.1399, L500.3400, L5530.0569, L5530.1479, L5530.1319, L506.0400, L5500.0550, L5530.0479, L5530.0169 #### [facility] [address] [place] [address], [place], [id number] AST [Catalytic activity/Vol] 33 U/L Normal <=37 [facility] Comment on above: Order Comment: PAULA NT WAS GIVEN STOOL KIT TO BE RETURNED Performed By: #### L 101.9900, L5530.0009, L5530.0399, L5530.1389, L5530.1169, L501.6710, L501.9520, L5530.1649, L3410.2400, L5530.1669, L5530.1399, L500.3400, L5530.0569, L5530.1479, L5530.1319, L506.0400, L5500.0550, L5530.0479, L5530.0169 #### [facility] [address] [facility]. [place], [place], [phone] (140) Bilirubin [Mass/Vol] 0.39 mg/dL Normal 0.00-1.30 [facility] Comment on above: Order Comment: PAULA NT WAS GIVEN STOOL KIT TO BE RETURNED Performed By: #### L 101.9900, L5530.0009, L5530.0399, L5530.1389, L5530.1169, L501.6710, L501.9520, L5530.1649, L3410.2400, L5530.1669, L5530.1399, L500.3400, L5530.0569, L5530.1479, L5530.1319, L506.0400, L5500.0550, L5530.0479, L5530.0169 #### [facility] [address] [facility] [place], [address] (559) Bilirubin.direct [Mass/Vol] 0.15 mg/dL Normal 0.00-0.30 [facility] Comment on above: Order Comment: PAULA NT WAS GIVEN STOOL KIT TO BE RETURNED Performed By: #### L 101.9900, L5530.0009, L5530.0399, L5530.1389, L5530.1169, L501.6710, L501.9520, L5530.1649, L3410.2400, L5530.1669, L5530.1399, L500.3400, L5530.0569, L5530.1479, L5530.1319, L506.0400, L5500.0550, L5530.0479, L5530.0169 #### [facility] [address] [facility] [place], [place], [phone] (972) Globulin (S) [Mass/Vol] 2.6 g/dL Normal 2.2-4.2 [facility] Comment on above: Order Comment: PAULA NT WAS GIVEN STOOL KIT TO BE RETURNED Performed By: #### L 101.9900, L5530.0009, L5530.0399, L5530.1389, L5530.1169, L501.6710, L501.9520, L5530.1649, L3410.2400, L5530.1669, L5530.1399, L500.3400, L5530.0569, L5530.1479, L5530.1319, L506.0400, L5500.0550, L5530.0479, L5530.0169 #### [facility] [address] [facility] [place], [address] T PROT 6.9 g/dL Normal 5.9-8.4 [facility] Comment on above: Order Comment: PAULA NT WAS GIVEN STOOL KIT TO BE RETURNED Performed By: #### L 101.9900, L5530.0009, L5530.0399, L5530.1389, L5530.1169, L501.6710, L501.9520, L5530.1649, L3410.2400, L5530.1669, L5530.1399, L500.3400, L5530.0569, L5530.1479, L5530.1319, L506.0400, L5500.0550, L5530.0479, L5530.0169 #### [facility] [address] [facility] [place], [address] Serum Glycine max IgE antibo dy assay (units/volume)Ordered By: Vi Moncada on 10-29-2024 Soybean IgE Qn (S) TNP [facility] Comment on above: Test not performed Serum almond IgE antibody as say (units/volume)Ordered By: Vi Moncada on 10-29-2024 [place] IgE Qn (S) <0.10 kU/L Class 0 [facility] Serum beef IgE antibody assa y (units/volume)Ordered By: Vi Moncada on 10-29-2024 Beef IgE Qn (S) <0.10 kU/L Class 0 [facility] Beef IgE Qn (S) TNP [facility] Comment on above: Test not performed Serum black walnut IgE antib georgi assay (units/volume)Ordered By: Vi Moncada on 10-29-2024 [place] IgE Qn (S) <0.10 kU/L Class 0 [facility] Comment on above: Performed at: - L [facility] [id number] [place], [place] [id number] Director: Ralph Peterson MD, Phone: [phone] Serum chicken IgE antibody a ssay (units/volume)Ordered By: iV Moncada on 10-29-2024 Chicken IgE Qn (S) <0.10 kU/L Class 0 [facility] Serum codfish IgE antibody a ssay (units/volume)Ordered By: Vi Moncada on 10-29-2024 Codfish IgE Qn (S) <0.10 kU/L Class 0 [facility] Serum corn IgE antibody assa y (units/volume)Ordered By: Vi Moncada on 10-29-2024 [facility] IgE Qn (S) <0.10 kU/L Class 0 [facility] Serum cow milk IgE antibody assay (units/volume)Ordered By: Vi Moncada on 10-29-2024 Cow milk IgE Qn (S) <0.10 kU/L Class 0 [facility] Serum egg white IgE antibody assay (units/volume)Ordered By: Vi Moncada on 10-29-2024 Egg white IgE Qn (S) <0.10 kU/L Class 0 [facility] Serum globulin measurementOr dered By: Vi Moncada on 10-29-2024 Globulin (S) [Mass/Vol] 2.6 g/dL 2.2-4.2 [facility] Serum or plasma C reactive p rotein measurement (mass/volume)Ordered By: Vi Moncada on 10-29-2024 CRP [Mass/Vol] mg/L 0.0-3.0 [facility] Serum or plasma IgA measurem ent (mass/volume)Ordered By: Vi Moncada on 10-29-2024 IgA [Mass/Vol] 311 mg/dL 90-386 [facility] Comment on above: Performed at: - L [facility] [place], [place] [id number] Director: Julian Meza PhD, Phone: [phone] Serum or plasma alanine goyal otransferase (ALT) measurementOrdered By: Vi Moncada on 10-29-2024 ALT [Catalytic activity/Vol] 50 U/L High <47 [facility] Serum or plasma albumin tico urement (mass/volume)Ordered By: Vi Moncada on 10-29-2024 Albumin [Mass/Vol] 4.3 g/dL 3.5-5.0 [facility] Serum or plasma alkaline felipe sphatase measurementOrdered By: Vi Moncada on 10-29-2024 ALP [Catalytic activity/Vol] 77 U/L 40-129 [facility] Serum peanut IgE antibody as say (units/volume)Ordered By: Vi Moncada on 10-29-2024 Peanut IgE Qn (S) <0.10 kU/L Class 0 [facility] Serum pork IgE antibody assa y (units/volume)Ordered By: Vi Moncada on 10-29-2024 Pork IgE Qn (S) <0.10 kU/L Class 0 [facility] Serum rice IgE antibody assa y (units/volume)Ordered By: Vi Moncada on 10-29-2024 Rice IgE Qn (S) <0.10 kU/L Class 0 [facility] Serum rye IgE antibody assay (units/volume)Ordered By: Vi Moncada on 10-29-2024 [place] IgE Qn (S) <0.10 kU/L Class 0 [facility] Serum salmon IgE antibody as say (units/volume)Ordered By: Vi Moncada on 10-29-2024 [place] IgE Qn (S) <0.10 kU/L Class 0 [facility] Serum soybean IgE antibody a ssay (units/volume)Ordered By: Vi Moncada on 10-29-2024 Soybean IgE Qn (S) <0.10 kU/L Class 0 [facility] Serum tissue transglutaminas e (tTG) IgA antibody assay (units/volume)Ordered By: Vi Moncada on 10-29-2024 tTG IgA Qn (S) <2 U/mL 0-3 [facility] Comment on above: Negative 0 - 3 Weak Positive 4 - 10 Positive >10 Tissue Transglutaminase (tTG) has been identified as the endomysial antigen. Studies have demonstr- ated that endomysial IgA antibodies have over 99% specificity for gluten sensitive enteropathy. Serum tuna IgE antibody assa y (units/volume)Ordered By: Vi Moncada on 10-29-2024 Tuna IgE Qn (S) <0.10 kU/L Class 0 [facility] Serum wheat IgE antibody ass ay (units/volume)Ordered By: Vi Moncada on 10-29-2024 Wheat IgE Qn (S) <0.10 kU/L Class 0 [facility] Serum whole egg IgE antibody assay (units/volume)Ordered By: Vi Moncada on 10-29-2024 Whole Egg IgE Qn (S) <0.10 kU/L Class 0 [facility] T4 Free Directon 10-29-2024 T4 FREE DIRECT 1.20 ng/dL Normal 0.76-1.46 [facility] Comment on above: Order Comment: PAULA NT WAS GIVEN STOOL KIT TO BE RETURNED Performed By: #### L 101.9900, L5530.0009, L5530.0399, L5530.1389, L5530.1169, L501.6710, L501.9520, L5530.1649, L3410.2400, L5530.1669, L5530.1399, L500.3400, L5530.0569, L5530.1479, L5530.1319, L506.0400, L5500.0550, L5530.0479, L5530.0169 #### [facility] [address] [place], [place], [id number] T4 freeOrdered By: Vi bella on 10-29-2024 Free T4 [Mass/Vol] 1.20 ng/dL 0.76-1.46 [facility] TSH DL <= 0.005 mIU/L QnOrde red By: Vi Moncada on 10-29-2024 Thyroid Stimulating Hormone (TSH) 1.640 uIU/mL 0.300-4.200 [facility] TSH Qn 1.640 uIU/mL 0.300-4.200 [facility] Thyroid Stim Hormone (TSH)on 10-29-2024 TSH 1.640 uIU/mL Normal 0.300-4.200 [facility] Comment on above: Order Comment: PAULA HERRMANN WAS GIVEN STOOL KIT TO BE RETURNED Performed By: #### L 101.9900, L5530.0009, L5530.0399, L5530.1389, L5530.1169, L501.6710, L501.9520, L5530.1649, L3410.2400, L5530.1669, L5530.1399, L500.3400, L5530.0569, L5530.1479, L5530.1319, L506.0400, L5500.0550, L5530.0479, L5530.0169 #### [facility] [address] [place], [place], [id number] Total proteinOrdered By: Rachael Moncada on 10-29-2024 Protein [Mass/Vol] 6.9 g/dL 5.9-8.4 [facility] tTG IgA Qn (S)Ordered By: Ra vale Moncada on 10-29-2024 Tissue Transglutaminase IgA Ab <2 U/mL 0-3 [facility] Comment on above: Negative 0 - 3 Weak Positive 4 - 10 Positive >10 Tissue Transglutaminase (tTG) has been identified as the endomysial antigen. Studies have demonstr- ated that endomysial IgA antibodies have over 99% specificity for gluten sensitive enteropathy. 16-XA-Oiofniu DOrdered By: Godwin Velasquez on 08-31-2024 Vitamin D 25-Hydroxy 6.7 ng/mL [facility] Comment on above: Vitamin D 25(OH) Sta tus Range Deficiency <20 ng/mL (50nmol/L) Insufficiency 20 - 30 ng/mL (50 - 75 nmol/L) Sufficiency 30 - 100 ng/mL (75 - 250 nmol/L) Toxicity >100 ng/mL (>250 nmol/L) Absolute lymphocyte countOrd ered By: Fransico Velasquez on 08-31-2024 Lymphocytes Auto (Unsp spec) [#/Vol] 1.83 10*3/uL 0.83-4.51 [facility] Absolute neutrophil countOrd ered By: Fransico BravoRon on 08-31-2024 Neutrophils (Bld) [#/Vol] 4.0 10*3/uL 2.0-7.7 [facility] Albumin to globulin ratioOrd ered By: Fransico Ron on 08-31-2024 Albumin/Globulin [Mass ratio] 1.0 {ratio} 0.9-2.4 [facility] Automated lymphocyte count a s percentage of total leukocytesOrdered By: Fransico Velasquez on 08-31-2024 Lymphocytes/100 WBC Auto (Unsp spec) 26.3 % -41 [facility] Basophil percentageOrdered B y: Fransico Velasquez on 08-31-2024 Basophils/100 WBC (Bld) 0.9 % 0-1 [facility] Bilirubin, totalOrdered By: Fransico Velasquez on 08-31-2024 Bilirubin [Mass/Vol] 0.60 mg/dL 0.20-1.00 [facility] Comment on above: For patients on eltr ombopag therapy, use of Dimension [place] TBIL is not recommended. Blood urea nitrogen (BUN)/cr eatinine ratioOrdered By: Fransico Velasquez on 08-31-2024 Urea nitrogen/Creatinine [Mass ratio] 10.8 mg/mg 10-20 [facility] CBC W/Diff, Automatedon 08-18 Absolute Lymph 1.83 X10 3/uL Normal 0.83-4.51 [facility] Comment on above: Performed By: #### L 101.9900, L5530.0009, L5530.0399, L5530.1389, L5530.1169, L501.6710, L501.9520, L5530.1649, L3410.2400, L5530.1669, L5530.1399, L500.3400, L5530.0569, L5530.1479, L5530.1319, L506.0400, L5500.0550, L5530.0479, L5530.0169 #### [facility] [address], [place] [address]. [place], [place], [id number] Absolute Neut 4.0 X10 3/uL Normal 2.0-7.7 [facility] Comment on above: Performed By: #### L 101.9900, L5530.0009, L5530.0399, L5530.1389, L5530.1169, L501.6710, L501.9520, L5530.1649, L3410.2400, L5530.1669, L5530.1399, L500.3400, L5530.0569, L5530.1479, L5530.1319, L506.0400, L5500.0550, L5530.0479, L5530.0169 #### [facility] [address] [place], [place], [phone] (031) Basophils/100 WBC (Bld) 0.9 % Normal 0-1 [facility] Comment on above: Performed By: #### L 101.9900, L5530.0009, L5530.0399, L5530.1389, L5530.1169, L501.6710, L501.9520, L5530.1649, L3410.2400, L5530.1669, L5530.1399, L500.3400, L5530.0569, L5530.1479, L5530.1319, L506.0400, L5500.0550, L5530.0479, L5530.0169 #### [facility] [address] [facility] [place], [place], [id number] (861) Eosinophils/100 WBC (Bld) 2.4 % Normal 0-5 [facility] Comment on above: Performed By: #### L 101.9900, L5530.0009, L5530.0399, L5530.1389, L5530.1169, L501.6710, L501.9520, L5530.1649, L3410.2400, L5530.1669, L5530.1399, L500.3400, L5530.0569, L5530.1479, L5530.1319, L506.0400, L5500.0550, L5530.0479, L5530.0169 #### [facility] [address] [facility] [place], [address] (697) Erythrocyte distribution width (RBC) [Ratio] 13.3 % Normal 11.6-14.6 [facility] Comment on above: Performed By: #### L 101.9900, L5530.0009, L5530.0399, L5530.1389, L5530.1169, L501.6710, L501.9520, L5530.1649, L3410.2400, L5530.1669, L5530.1399, L500.3400, L5530.0569, L5530.1479, L5530.1319, L506.0400, L5500.0550, L5530.0479, L5530.0169 #### [facility] [address] [place], [address] (605) Hematocrit (Bld) [Volume fraction] 51.9 % Normal 40-54 [facility] Comment on above: Performed By: #### L 101.9900, L5530.0009, L5530.0399, L5530.1389, L5530.1169, L501.6710, L501.9520, L5530.1649, L3410.2400, L5530.1669, L5530.1399, L500.3400, L5530.0569, L5530.1479, L5530.1319, L506.0400, L5500.0550, L5530.0479, L5530.0169 #### [facility] [address] [facility] [place], [address] Hemoglobin (Bld) [Mass/Vol] 17.2 g/dL High 13.0-16.5 [facility] Comment on above: Performed By: #### L 101.9900, L5530.0009, L5530.0399, L5530.1389, L5530.1169, L501.6710, L501.9520, L5530.1649, L3410.2400, L5530.1669, L5530.1399, L500.3400, L5530.0569, L5530.1479, L5530.1319, L506.0400, L5500.0550, L5530.0479, L5530.0169 #### [facility] [address] [facility] [place], [address] IG% 0.600 Normal 0.0-0.9 [facility] Comment on above: Result Comment: IG% - Immature Granulocytes (promyelocytes, myelocytes and metamyelocytes) > 1% indicates that a LEFT SHIFT is Present. Performed By: #### L 101.9900, L5530.0009, L5530.0399, L5530.1389, L5530.1169, L501.6710, L501.9520, L5530.1649, L3410.2400, L5530.1669, L5530.1399, L500.3400, L5530.0569, L5530.1479, L5530.1319, L506.0400, L5500.0550, L5530.0479, L5530.0169 #### [facility] [address] [facility] [place], [address] Lymphocytes/100 WBC (Bld) 26.3 % Normal 19-41 [facility] Comment on above: Performed By: #### L 101.9900, L5530.0009, L5530.0399, L5530.1389, L5530.1169, L501.6710, L501.9520, L5530.1649, L3410.2400, L5530.1669, L5530.1399, L500.3400, L5530.0569, L5530.1479, L5530.1319, L506.0400, L5500.0550, L5530.0479, L5530.0169 #### [facility] [address] [facility] [place], [address] MCH (RBC) [Entitic mass] 29.6 pg Normal 27.0-32.0 [facility] Comment on above: Performed By: #### L 101.9900, L5530.0009, L5530.0399, L5530.1389, L5530.1169, L501.6710, L501.9520, L5530.1649, L3410.2400, L5530.1669, L5530.1399, L500.3400, L5530.0569, L5530.1479, L5530.1319, L506.0400, L5500.0550, L5530.0479, L5530.0169 #### [facility] [address] [place], [place], [id number] MCHC (RBC) [Mass/Vol] 33.1 g/dL Normal 32-36 [facility] Comment on above: Performed By: #### L 101.9900, L5530.0009, L5530.0399, L5530.1389, L5530.1169, L501.6710, L501.9520, L5530.1649, L3410.2400, L5530.1669, L5530.1399, L500.3400, L5530.0569, L5530.1479, L5530.1319, L506.0400, L5500.0550, L5530.0479, L5530.0169 #### [facility] [address] [place], [address] MCV (RBC) [Entitic vol] 89.2 fL Normal 80-94 [facility] Comment on above: Performed By: #### L 101.9900, L5530.0009, L5530.0399, L5530.1389, L5530.1169, L501.6710, L501.9520, L5530.1649, L3410.2400, L5530.1669, L5530.1399, L500.3400, L5530.0569, L5530.1479, L5530.1319, L506.0400, L5500.0550, L5530.0479, L5530.0169 #### [facility] [address] [place], [place], [id number] (926) Monocytes/100 WBC (Bld) 11.8 % High 0-10 [facility] Comment on above: Performed By: #### L 101.9900, L5530.0009, L5530.0399, L5530.1389, L5530.1169, L501.6710, L501.9520, L5530.1649, L3410.2400, L5530.1669, L5530.1399, L500.3400, L5530.0569, L5530.1479, L5530.1319, L506.0400, L5500.0550, L5530.0479, L5530.0169 #### [facility] [address] [place], [place], [address] (966) Neutrophils/100 WBC (Bld) 58.0 % Normal 47-70 [facility] Comment on above: Performed By: #### L 101.9900, L5530.0009, L5530.0399, L5530.1389, L5530.1169, L501.6710, L501.9520, L5530.1649, L3410.2400, L5530.1669, L5530.1399, L500.3400, L5530.0569, L5530.1479, L5530.1319, L506.0400, L5500.0550, L5530.0479, L5530.0169 #### [facility] [address] [place], [place], [address] [phone] Nucleated RBC (Bld) [#/Vol] 0 10*3/uL Normal 0-5 [facility] Comment on above: Performed By: #### L 101.9900, L5530.0009, L5530.0399, L5530.1389, L5530.1169, L501.6710, L501.9520, L5530.1649, L3410.2400, L5530.1669, L5530.1399, L500.3400, L5530.0569, L5530.1479, L5530.1319, L506.0400, L5500.0550, L5530.0479, L5530.0169 #### [facility] [address]. [place], [place], [id number] (286) Platelet mean volume (Bld) [Entitic vol] 9.5 fL Normal 6.2-12.0 [facility] Comment on above: Performed By: #### L 101.9900, L5530.0009, L5530.0399, L5530.1389, L5530.1169, L501.6710, L501.9520, L5530.1649, L3410.2400, L5530.1669, L5530.1399, L500.3400, L5530.0569, L5530.1479, L5530.1319, L506.0400, L5500.0550, L5530.0479, L5530.0169 #### [facility] [address] [place], [place], [id number] (726) Platelets (Bld) [#/Vol] 212 10*3/uL Normal 150-450 [facility] Comment on above: Performed By: #### L 101.9900, L5530.0009, L5530.0399, L5530.1389, L5530.1169, L501.6710, L501.9520, L5530.1649, L3410.2400, L5530.1669, L5530.1399, L500.3400, L5530.0569, L5530.1479, L5530.1319, L506.0400, L5500.0550, L5530.0479, L5530.0169 #### [facility] [address]. [place], [place], [phone] (156) RBC (Bld) [#/Vol] 5.82 10*6/uL Normal 4.6-6.2 [facility] Comment on above: Performed By: #### L 101.9900, L5530.0009, L5530.0399, L5530.1389, L5530.1169, L501.6710, L501.9520, L5530.1649, L3410.2400, L5530.1669, L5530.1399, L500.3400, L5530.0569, L5530.1479, L5530.1319, L506.0400, L5500.0550, L5530.0479, L5530.0169 #### [facility] [address] [place], [address] RDW SD 43.5 fl Normal 35.1-43.9 [facility] Comment on above: Performed By: #### L 101.9900, L5530.0009, L5530.0399, L5530.1389, L5530.1169, L501.6710, L501.9520, L5530.1649, L3410.2400, L5530.1669, L5530.1399, L500.3400, L5530.0569, L5530.1479, L5530.1319, L506.0400, L5500.0550, L5530.0479, L5530.0169 #### [facility] [address] [place], [address] WBC (Bld) [#/Vol] 7.0 10*3/uL Normal 4.4-11.0 [facility] Comment on above: Performed By: #### L 101.9900, L5530.0009, L5530.0399, L5530.1389, L5530.1169, L501.6710, L501.9520, L5530.1649, L3410.2400, L5530.1669, L5530.1399, L500.3400, L5530.0569, L5530.1479, L5530.1319, L506.0400, L5500.0550, L5530.0479, L5530.0169 #### [facility] [address] [place], [address] Carbon dioxide measurementOr dered By: Fransico Velasquez on 08-31-2024 CO2 [Moles/Vol] 28.0 mmol/L 21.0-32.0 [facility] Chloride measurementOrdered By: Fransico Velasquez on 08-31-2024 Chloride [Moles/Vol] 106 mmol/L 98-107 [facility] Comprehensive Metabolic Prof ilon 08-31-2024 Albumin [Mass/Vol] 3.7 g/dL Normal 3.2-5.0 [facility] Comment on above: Performed By: #### L 101.9900, L5530.0009, L5530.0399, L5530.1389, L5530.1169, L501.6710, L501.9520, L5530.1649, L3410.2400, L5530.1669, L5530.1399, L500.3400, L5530.0569, L5530.1479, L5530.1319, L506.0400, L5500.0550, L5530.0479, L5530.0169 #### [facility] [address]. [place], [place], [phone] Albumin/Globulin [Mass ratio] 1.0 {ratio} Normal 0.9-2.4 [facility] Comment on above: Performed By: #### L 101.9900, L5530.0009, L5530.0399, L5530.1389, L5530.1169, L501.6710, L501.9520, L5530.1649, L3410.2400, L5530.1669, L5530.1399, L500.3400, L5530.0569, L5530.1479, L5530.1319, L506.0400, L5500.0550, L5530.0479, L5530.0169 #### [facility] [address] [place], [place], [phone] ALK P 73 U/L Normal 45-117 [facility] Comment on above: Performed By: #### L 101.9900, L5530.0009, L5530.0399, L5530.1389, L5530.1169, L501.6710, L501.9520, L5530.1649, L3410.2400, L5530.1669, L5530.1399, L500.3400, L5530.0569, L5530.1479, L5530.1319, L506.0400, L5500.0550, L5530.0479, L5530.0169 #### [facility] [address] [place], [address] ALT [Catalytic activity/Vol] 72 U/L High 16-61 [facility] Comment on above: Performed By: #### L 101.9900, L5530.0009, L5530.0399, L5530.1389, L5530.1169, L501.6710, L501.9520, L5530.1649, L3410.2400, L5530.1669, L5530.1399, L500.3400, L5530.0569, L5530.1479, L5530.1319, L506.0400, L5500.0550, L5530.0479, L5530.0169 #### [facility] [address] [place], [address] AST [Catalytic activity/Vol] 45 U/L [facility] 15-37 [facility] Comment on above: Performed By: #### L 101.9900, L5530.0009, L5530.0399, L5530.1389, L5530.1169, L501.6710, L501.9520, L5530.1649, L3410.2400, L5530.1669, L5530.1399, L500.3400, L5530.0569, L5530.1479, L5530.1319, L506.0400, L5500.0550, L5530.0479, L5530.0169 #### [facility] [address] [place], [address] Bilirubin [Mass/Vol] 0.60 mg/dL Normal 0.20-1.00 [facility] Comment on above: Result Comment: For patients on eltrombopag therapy, use of Dimension [place] TBIL is not recommended. Performed By: #### L 101.9900, L5530.0009, L5530.0399, L5530.1389, L5530.1169, L501.6710, L501.9520, L5530.1649, L3410.2400, L5530.1669, L5530.1399, L500.3400, L5530.0569, L5530.1479, L5530.1319, L506.0400, L5500.0550, L5530.0479, L5530.0169 #### [facility] [address] [place], [place], [phone] (797) BUN/CRE 10.8 RATIO Normal 10-20 [facility] Comment on above: Performed By: #### L 101.9900, L5530.0009, L5530.0399, L5530.1389, L5530.1169, L501.6710, L501.9520, L5530.1649, L3410.2400, L5530.1669, L5530.1399, L500.3400, L5530.0569, L5530.1479, L5530.1319, L506.0400, L5500.0550, L5530.0479, L5530.0169 #### [facility] [address] [place], [place], [phone] (729) CA,Total 9.0 mg/dL Normal 8.5-10.1 [facility] Comment on above: Performed By: #### L 101.9900, L5530.0009, L5530.0399, L5530.1389, L5530.1169, L501.6710, L501.9520, L5530.1649, L3410.2400, L5530.1669, L5530.1399, L500.3400, L5530.0569, L5530.1479, L5530.1319, L506.0400, L5500.0550, L5530.0479, L5530.0169 #### [facility] [address] [place], [place], [phone] (728) Chloride [Moles/Vol] 106 mmol/L Normal 98-107 [facility] Comment on above: Performed By: #### L 101.9900, L5530.0009, L5530.0399, L5530.1389, L5530.1169, L501.6710, L501.9520, L5530.1649, L3410.2400, L5530.1669, L5530.1399, L500.3400, L5530.0569, L5530.1479, L5530.1319, L506.0400, L5500.0550, L5530.0479, L5530.0169 #### [facility] [address] [place], [place], [phone] CO2 [Moles/Vol] 28.0 mmol/L Normal 21.0-32.0 [facility] Comment on above: Performed By: #### L 101.9900, L5530.0009, L5530.0399, L5530.1389, L5530.1169, L501.6710, L501.9520, L5530.1649, L3410.2400, L5530.1669, L5530.1399, L500.3400, L5530.0569, L5530.1479, L5530.1319, L506.0400, L5500.0550, L5530.0479, L5530.0169 #### [facility] [address] [place], [place], [phone] Creatinine [Mass/Vol] 0.92 mg/dL Normal 0.70-1.30 [facility] Comment on above: Result Comment: The validity of the calculated GFR GFRAA in patients over 70 years has not been determined. Clinical correlation is essential. Performed By: #### L 101.9900, L5530.0009, L5530.0399, L5530.1389, L5530.1169, L501.6710, L501.9520, L5530.1649, L3410.2400, L5530.1669, L5530.1399, L500.3400, L5530.0569, L5530.1479, L5530.1319, L506.0400, L5500.0550, L5530.0479, L5530.0169 #### [facility] [address] [place], [place], [id number] EST GFR - AA 121 mL/min Normal >60 [facility] Comment on above: Result Comment: Afri can [place] GFR Calc Performed By: #### L 101.9900, L5530.0009, L5530.0399, L5530.1389, L5530.1169, L501.6710, L501.9520, L5530.1649, L3410.2400, L5530.1669, L5530.1399, L500.3400, L5530.0569, L5530.1479, L5530.1319, L506.0400, L5500.0550, L5530.0479, L5530.0169 #### [facility] [address] [facility] [place], [place], [phone] GAP 6 Normal 5-15 [facility] Comment on above: Performed By: #### L 101.9900, L5530.0009, L5530.0399, L5530.1389, L5530.1169, L501.6710, L501.9520, L5530.1649, L3410.2400, L5530.1669, L5530.1399, L500.3400, L5530.0569, L5530.1479, L5530.1319, L506.0400, L5500.0550, L5530.0479, L5530.0169 #### [facility] [address] [place], [place], [phone] GFR/1.73 sq M.predicted among non-blacks MDRD (S/P/Bld) [Vol rate/Area] 100 mL/min/{1.73_m2} Normal >60 [facility] Comment on above: Result Comment: Non- GFR Calc Performed By: #### L 101.9900, L5530.0009, L5530.0399, L5530.1389, L5530.1169, L501.6710, L501.9520, L5530.1649, L3410.2400, L5530.1669, L5530.1399, L500.3400, L5530.0569, L5530.1479, L5530.1319, L506.0400, L5500.0550, L5530.0479, L5530.0169 #### [facility] [address] [place], [address] Globulin (S) [Mass/Vol] 3.6 g/dL Normal 2.2-4.2 [facility] Comment on above: Performed By: #### L 101.9900, L5530.0009, L5530.0399, L5530.1389, L5530.1169, L501.6710, L501.9520, L5530.1649, L3410.2400, L5530.1669, L5530.1399, L500.3400, L5530.0569, L5530.1479, L5530.1319, L506.0400, L5500.0550, L5530.0479, L5530.0169 #### [facility] [address] [place], [address] Glucose [Mass/Vol] 95 mg/dL Normal 74-106 [facility] Comment on above: Performed By: #### L 101.9900, L5530.0009, L5530.0399, L5530.1389, L5530.1169, L501.6710, L501.9520, L5530.1649, L3410.2400, L5530.1669, L5530.1399, L500.3400, L5530.0569, L5530.1479, L5530.1319, L506.0400, L5500.0550, L5530.0479, L5530.0169 #### [facility] [address] [place], [address] Potassium [Moles/Vol] 3.8 mmol/L Normal 3.5-5.1 [facility] Comment on above: Performed By: #### L 101.9900, L5530.0009, L5530.0399, L5530.1389, L5530.1169, L501.6710, L501.9520, L5530.1649, L3410.2400, L5530.1669, L5530.1399, L500.3400, L5530.0569, L5530.1479, L5530.1319, L506.0400, L5500.0550, L5530.0479, L5530.0169 #### [facility] [address] [place], [place], [phone] (360) Sodium [Moles/Vol] 140 mmol/L Normal 136-145 [facility] Comment on above: Performed By: #### L 101.9900, L5530.0009, L5530.0399, L5530.1389, L5530.1169, L501.6710, L501.9520, L5530.1649, L3410.2400, L5530.1669, L5530.1399, L500.3400, L5530.0569, L5530.1479, L5530.1319, L506.0400, L5500.0550, L5530.0479, L5530.0169 #### [facility] [address] [facility] [place], [place], [phone] (682) T PROT 7.3 g/dL Normal 6.4-8.2 [facility] Comment on above: Performed By: #### L 101.9900, L5530.0009, L5530.0399, L5530.1389, L5530.1169, L501.6710, L501.9520, L5530.1649, L3410.2400, L5530.1669, L5530.1399, L500.3400, L5530.0569, L5530.1479, L5530.1319, L506.0400, L5500.0550, L5530.0479, L5530.0169 #### [facility] [address] [place], [place], [id number] Urea nitrogen [Mass/Vol] 10 mg/dL Normal 7-18 [facility] Comment on above: Performed By: #### L 101.9900, L5530.0009, L5530.0399, L5530.1389, L5530.1169, L501.6710, L501.9520, L5530.1649, L3410.2400, L5530.1669, L5530.1399, L500.3400, L5530.0569, L5530.1479, L5530.1319, L506.0400, L5500.0550, L5530.0479, L5530.0169 #### [facility] [address] [place], [address] Eosinophil percentageOrdered By: Fransico Velasquez on 08-31-2024 Eosinophils/100 WBC (Bld) 2.4 % 0-5 [facility] Erythrocyte distribution wid th (RBC) [Ratio]Ordered By: Fransico Velasquez on 08-31-2024 Erythrocyte distribution width (RBC) [Entitic vol] 43.5 fL 35.1-43.9 [facility] Erythrocyte distribution wid th ratioOrdered By: Fransico Velasquez on 08-31-2024 Erythrocyte distribution width (RBC) [Ratio] 13.3 % 11.6-14.6 [facility] Erythrocyte distribution wid th standard deviationOrdered By: Fransico Velasquez on 08-31-2024 Erythrocyte distribution width (RBC) [Ratio] 43.5 fl 35.1-43.9 [facility] Estimated glomerular filtrat ion rate (GFR) AmericanOrdered By: Fransico Velasquez on 08-31-2024 Estimated GFR (MDRD) Amer 121 mL/min >60 [facility] Comment on above: GFR Calc Glomerular filtration rate ( GFR) estimationOrdered By: Fransico Velasquez on 08-31-2024 Estimated GFR (MDRD) Non-Af Amer 100 mL/min >60 [facility] Comment on above: Non- GFR Calc GFR/1.73 sq M.predicted among non-blacks MDRD (S/P/Bld) [Vol rate/Area] 100 mL/min/{1.73_m2} >60 [facility] Comment on above: Non- GFR Calc Glucose measurementOrdered B y: Fransico Velasquez on 08-31-2024 Glucose [Mass/Vol] 95 mg/dL 74-106 [facility] Hematocrit Auto (Bld) [Volum e fraction]Ordered By: Fransico Velasquez on 08-31-2024 Hematocrit (Bld) [Volume fraction] 51.9 % 40-54 [facility] Hemoglobin measurementOrdere d By: Fransico Velasquez on 08-31-2024 Hemoglobin (Bld) [Mass/Vol] 17.2 g/dL High 13.0-16.5 [facility] High density lipoprotein (HD L) measurementOrdered By: Fransico Velasquez on 08-31-2024 Cholesterol in HDL [Mass/Vol] 40 mg/dL >40 [facility] Comment on above: The drugs N-Acetylcy steine and Metamizole may falsely depress this assay. Reference Range HDL <40 mg/dL Low HDL Cholesterol HDL >or= 60 mg/dL High HDL Cholesterol Immature granulocytes/100 WB C Auto (Bld)Ordered By: Fransico Velasquez on 08-31-2024 Immature granulocytes/100 WBC (Bld) 0.600 % 0.0-0.9 [facility] Comment on above: IG% - Immature Granu locytes (promyelocytes, myelocytes and metamyelocytes) > 1% indicates that a LEFT SHIFT is Present. Laboratory - Chemistry and C hemistry - challengeOrdered By: Fransico Velasquez on 08-31-2024 AST [Catalytic activity/Vol] 45 U/L High 15-37 [facility] Lipid Profileon 08-31-2024 Cholesterol [Mass/Vol] 198 mg/dL Normal 200 [facility] Comment on above: Result Comment: <200 mg/dL Desirable 200-240 mg/dL Borderline >240 mg/dL High Risk Performed By: #### L 101.9900, L5530.0009, L5530.0399, L5530.1389, L5530.1169, L501.6710, L501.9520, L5530.1649, L3410.2400, L5530.1669, L5530.1399, L500.3400, L5530.0569, L5530.1479, L5530.1319, L506.0400, L5500.0550, L5530.0479, L5530.0169 #### [facility] [address] [place], [address] Cholesterol in HDL [Mass/Vol] 40 mg/dL Normal [facility] Comment on above: Result Comment: The drugs N-Acetylcysteine and Metamizole may falsely depress this assay. Reference Range HDL <40 mg/dL Low HDL Cholesterol HDL >or= 60 mg/dL High HDL Cholesterol Performed By: #### L 101.9900, L5530.0009, L5530.0399, L5530.1389, L5530.1169, L501.6710, L501.9520, L5530.1649, L3410.2400, L5530.1669, L5530.1399, L500.3400, L5530.0569, L5530.1479, L5530.1319, L506.0400, L5500.0550, L5530.0479, L5530.0169 #### [facility] [address] [place], [address] Cholesterol in LDL [Mass/Vol] 121 mg/dL Normal 0-130 [facility] Comment on above: Performed By: #### L 101.9900, L5530.0009, L5530.0399, L5530.1389, L5530.1169, L501.6710, L501.9520, L5530.1649, L3410.2400, L5530.1669, L5530.1399, L500.3400, L5530.0569, L5530.1479, L5530.1319, L506.0400, L5500.0550, L5530.0479, L5530.0169 #### [facility] [address] [place], [address] Cholesterol in VLDL [Mass/Vol] 37 mg/dL Normal 5-40 [facility] Comment on above: Performed By: #### L 101.9900, L5530.0009, L5530.0399, L5530.1389, L5530.1169, L501.6710, L501.9520, L5530.1649, L3410.2400, L5530.1669, L5530.1399, L500.3400, L5530.0569, L5530.1479, L5530.1319, L506.0400, L5500.0550, L5530.0479, L5530.0169 #### [facility] [address] [place], [address] Triglyceride [Mass/Vol] 183 mg/dL Normal [facility] Comment on above: Result Comment: The drugs N-Acetylcysteine and Metamizole may falsely depress this assay. Serum Triglycerides Reference Interval Normal <150 mg/dL Borderline high 150 - 199 mg/dL High 200 - 499 mg/dL Very High > or = 500 mg/dL Performed By: #### L 101.9900, L5530.0009, L5530.0399, L5530.1389, L5530.1169, L501.6710, L501.9520, L5530.1649, L3410.2400, L5530.1669, L5530.1399, L500.3400, L5530.0569, L5530.1479, L5530.1319, L506.0400, L5500.0550, L5530.0479, L5530.0169 #### [facility] [address] [place] [address], [place], [id number] Low density lipoprotein (LDL ) cholesterol measurementOrdered By: Fransico Velasquez on 08-31-2024 Cholesterol in LDL [Mass/Vol] 121 mg/dL 0-130 [facility] Lymphocytes Auto (Unsp spec) [#/Vol]Ordered By: Fransico Velasquez on 08-31-2024 Lymphocytes (Bld) [#/Vol] 1.83 10*3/uL 0.83-4.51 [facility] Lymphocytes/100 WBC Auto (Un sp spec)Ordered By: Fransico Velasquez on 08-31-2024 Lymphocytes/100 WBC (Bld) 26.3 % 19-41 [facility] MCV (mean corpuscular volume ) determinationOrdered By: Fransico Velasquez on 08-31-2024 MCV (RBC) [Entitic vol] 89.2 fL 80-94 [facility] Mean corpuscular hemoglobin (MCH) determinationOrdered By: Fransico Velasquez on 08-31-2024 MCH (RBC) [Entitic mass] 29.6 pg 27.0-32.0 [facility] Mean corpuscular hemoglobin concentration (MCHC) determinationOrdered By: Fransico Velasquez on 08-31-2024 MCHC (RBC) [Mass/Vol] 33.1 g/dL 32-36 [facility] Mean platelet volume determi nationOrdered By: Fransico Velasquez on 08-31-2024 Platelet mean volume (Bld) [Entitic vol] 9.5 fL 6.2-12.0 [facility] Monocyte percentageOrdered B y: Fransico Velasquez on 08-31-2024 Monocytes/100 WBC (Bld) 11.8 % High 0-10 [facility] Neutrophil percentageOrdered By: Fransico Velasquez on 08-31-2024 Neutrophils/100 WBC (Bld) 58.0 % 47-70 [facility] Nucleated red blood cell per centageOrdered By: Fransico Velasquez on 08-31-2024 Nucleated RBC/100 WBC (Bld) [Ratio] 0 % 0-5 [facility] Platelet countOrdered By: Sona Velasquez on 08-31-2024 Platelets (Bld) [#/Vol] 212 10*3/uL 150-450 [facility] Potassium measurementOrdered By: Fransico Velasquez on 08-31-2024 Potassium [Moles/Vol] 3.8 mmol/L 3.5-5.1 [facility] RBC Auto (Bld) [#/Vol]Ordere d By: Fransico Velasquez on 08-31-2024 RBC (Bld) [#/Vol] 5.82 10*6/uL 4.6-6.2 [facility] Serum anion gap measurementO rdered By: Fransico Velasquez on 08-31-2024 Anion gap [Moles/Vol] 6 mmol/L 5-15 [facility] Serum globulin measurementOr dered By: Fransico Velasquez on 08-31-2024 Globulin (S) [Mass/Vol] 3.6 g/dL 2.2-4.2 [facility] Serum or plasma alanine goyal otransferase (ALT) measurementOrdered By: Fransico Velasquez on 08-31-2024 ALT [Catalytic activity/Vol] 72 U/L High 16-61 [facility] Serum or plasma albumin tico urement (mass/volume)Ordered By: Fransico Velasquez on 08-31-2024 Albumin [Mass/Vol] 3.7 g/dL 3.2-5.0 [facility] Serum or plasma alkaline felipe sphatase measurementOrdered By: Fransico Velasquez on 08-31-2024 ALP [Catalytic activity/Vol] 73 U/L 45-117 [facility] Serum or plasma calcium tico urement (mass/volume)Ordered By: Fransico Velasquez on 08-31-2024 Calcium [Mass/Vol] 9.0 mg/dL 8.5-10.1 [facility] Serum or plasma cholesterol measurement (mass/volume)Ordered By: Fransico Velasquez on 08-31-2024 Cholesterol [Mass/Vol] 198 mg/dL <200 [facility] Comment on above: <200 mg/dL Desirable 200-240 mg/dL Borderline >240 mg/dL High Risk Serum or plasma creatinine m easurement (mass/volume)Ordered By: Fransico Velasquez on 08-31-2024 Creatinine [Mass/Vol] 0.92 mg/dL 0.70-1.30 [facility] Comment on above: The validity of the calculated GFR & GFRAA in patients over 70 years has not been determined. Clinical correlation is essential. Serum or plasma urea nitroge n measurement (mass/volume)Ordered By: Fransico Velasquez on 08-31-2024 Urea nitrogen [Mass/Vol] 10 mg/dL 7-18 [facility] Sodium levelOrdered By: Fransico Velasquez on 08-31-2024 Sodium [Moles/Vol] 140 mmol/L 136-145 [facility] Total proteinOrdered By: Lesli Velasquez on 08-31-2024 Protein [Mass/Vol] 7.3 g/dL 6.4-8.2 [facility] Triglycerides measurementOrd ered By: Fransico Velasquez on 08-31-2024 Triglyceride [Mass/Vol] 183 mg/dL <199 [facility] Comment on above: The drugs N-Acetylcy steine and Metamizole may falsely depress this assay.Serum Triglycerides Reference Interval Normal <150 mg/dL Borderline high 150 - 199 mg/dL High 200 - 499 mg/dL Very High > or = 500 mg/dL Very low density lipoprotein (VLDL) cholesterol measurementOrdered By: Fransico Velasquez on 08-31-2024 Very low density lipoprotein (VLDL) cholesterol measurement 37 mg/dL -40 [facility] VLDL Cholesterol 37 mg/dL -40 [facility] Vitamin D,25 Hydroxyon 08-31 Vitamin D 25-OH 6.7 ng/mL Normal [facility] Comment on above: Result Comment: Caitie min D 25(OH) Status Range Deficiency <20 ng/mL (50nmol/L) Insufficiency 20 - 30 ng/mL (50 - 75 nmol/L) Sufficiency 30 - 100 ng/mL (75 - 250 nmol/L) Toxicity >100 ng/mL (>250 nmol/L) Performed By: #### L 101.9900, L5530.0009, L5530.0399, L5530.1389, L5530.1169, L501.6710, L501.9520, L5530.1649, L3410.2400, L5530.1669, L5530.1399, L500.3400, L5530.0569, L5530.1479, L5530.1319, L506.0400, L5500.0550, L5530.0479, L5530.0169 #### [facility] [address] [place] [address]. [place], [place], [id number] White blood cell (WBC) count Ordered By: Fransico Velasquez on 08-31-2024 WBC (Bld) [#/Vol] 7.0 10*3/uL 4.4-11.0 [facility] Vital Signs Date Time Vital Sign Value Performing Clinician Faci adam 12-13-2024 13:27-0400 Body height 177.[address] Fransico Velasquez DO Work Phone: [facility] 12-13-2024 13:27-0400 Body mass index (BMI) [Ratio] 43.6 kg/m2 Dr. Fransico Velasquez DO Work Phone: [facility] 12-13-2024 13:27-0400 Body temperature 97.9 [degF] Dr. Fransico Velasquez DO Work Phone: [facility] 12-13-2024 13:27-0400 Body weight 137.[address] Fransico Velasquez DO Work Phone: [facility] 12-13-2024 13:27-0400 Diastolic blood pressure 79 mm[Hg] Dr. Fransico Velasquez DO Work Phone: [facility] 12-13-2024 13:27-0400 Heart rate 71 /min Dr. Fransico Velasquez DO Work Phone: [facility] 12-13-2024 13:27-0400 Respiratory rate 18 /min Dr. Fransico Velasquez DO Work Phone: [facility] 12-13-2024 13:27-0400 SaO2% (BldA) [Mass fraction] 97 % Dr. Fransico Velasquez DO Work Phone: [facility] 12-13-2024 13:27-0400 Systolic blood pressure 133 mm[Hg] Dr. Fransico Velasquez DO Work Phone: [facility] 03-22-2023 09:31-0400 Body height 180.34 cm [facility] 03-22-2023 09:31-0400 Body mass index (BMI) [Ratio] 38.7 kg/m2 [facility] 03-22-2023 09:31-0400 Body temperature 97.9 [degF] [facility] 03-22-2023 09:31-0400 Body weight 126.09 kg [facility] 03-22-2023 09:31-0400 Diastolic blood pressure 90 mm[Hg] [facility] 03-22-2023 09:31-0400 Heart rate 108 /min [facility] 03-22-2023 09:31-0400 Respiratory rate 18 /min [facility] 03-22-2023 09:31-0400 SaO2% (BldA) [Mass fraction] 98 % [facility] 03-22-2023 09:310400 Systolic blood pressure 140 mm[Hg] [facility] Encounters Encounter Date Encounter Type Care Provider Facility Start: 12-25-2024 ambulatory [facility] Facility: [facility] Start: 12-13-2024 End: 12-13-[address] Cam Cooley MD -[facility] Work Phone: Start: 12-13-2024 End: 12-13-[address] Fransico Velasquez DO Work Phone: [facility] Work Phone: Start: 12-12-2024 End: 12-12-[address] Fransico Velasquez DO Work Phone: [facility] Work Phone: Start: 12-12-2024 End: 12-12-2024 Patient encounter procedure Vi [facility] [place] Work Phone: Start: 12-12-2024 End: 12-12-2024 ambulatory Fransico Ron Facility:[facility] Start: 10-29-2024 End: 10-29-[address] Fransico Velasquez DO Work Phone: [facility] Work Phone: Start: 10-29-2024 End: 10-29-2024 Patient encounter procedure iV DOMINGUEZ [facility] Start: 10-29-2024 End: 10-29-2024 ambulatory Fransico [facility]3] Facility:[facility] Start: 09-27-2024 Encounter for genera l adult medical examination with abnormal findings [facility] Start: 08-31-2024 End: 08-31-2024 Patient encounter procedure Jyothi Evans Start: 08-31-2024 End: 08-31-2024 ambulatory Fransico [facility]3] Facility:[facility] Start: 03-22-2023 End: 03-22-2023 Emergency department patient visit [facility]Emergency Department Work Phone: Procedures Date Procedure Procedure Detail Performing Clinician Start: 12-12-2024 [address] e detection Dr. Fransico Velasquez DO Work Phone: Start: 12-12-[address] Fransico Velasquez DO Work Phone: Start: 12-12-[address] Fransico Velasquez DO Work Phone: Start: 12-12-2024 Iadna-dna/rna gi pth gn multiplex probe tq 6-11 Dr. Fransico Velasquez DO Work Phone: Start: 10-29-[address] Fransico Velasquez DO Work Phone: Start: 10-29-2024 Endomysial antibody IgA level Dr. Fransico Velasquez DO Work Phone: Start: 10-29-[address] Fransico garcia DO Work Phone: Start: 10-29-[address] Fransico garcia DO Work Phone: Start: 08-31-2024 Measurement of renal function Dr. Fransico Velasquez DO Work Phone: Comment on above: GFR Calc Start: 08-31-2024 Vitamin D, 25-hydrox y measurement Dr. Fransico Velasquez DO Work Phone: Comment on above: Vitamin D 25(OH) Sta tus Range Deficiency <20 ng/mL (50nmol/L) Insufficiency 20 - 30 ng/mL (50 - 75 nmol/L) Sufficiency 30 - 100 ng/mL (75 - 250 nmol/L) Toxicity >100 ng/mL (>250 nmol/L) Start: 03-22-2023 Plain x-ray of hand Plan of Treatment Date Care Activity Detail Author Start: 12-12-2024 Clostridioides difficile (PCR) Clostridioides difficile (PCR) [facility] Start: 12-12-2024 Enteric Bacteriology Enteric Bacteriology [facility] Start: 12-12-2024 Ova and Parasites Ova and Parasites [facility] Start: 12-12-2024 Stool Lactoferrin Stool Lactoferrin [facility] Start: 10-29-2024 [facility] [place] IgE Ab [Units/volume] in Serum [facility] Beef IgE Ab [Units/volume] in Serum [facility] Chicken IgE Ab [Units/volume] in Serum [facility] Chocolate IgE Ab [Units/volume] in Serum [facility] Clostridioides diffi cile DNA [Presence] in Unspecified specimen by ANDERSON with probe detection [facility] Codfish IgE Ab [Units/volume] in Serum [facility] [place] Cross IgE Ab [Units/volume] in Serum [facility] Cow milk IgE Ab [Units/volume] in Serum [facility] Egg white RAST [facility] Food RAST [facility] Lactoferrin [Presenc e] in Stool by Immunoassay [facility] Nucleic acid assay [facility] Ova OR parasites identification [facility] Patient Education ED Laceration, Hand: All Closures [facility] Work Phone: Patient referral [facility] Work Phone: Peanut IgE Ab [Units/volume] in Serum [facility] Pork IgE Ab [Units/volume] in Serum [facility] Rice IgE Ab [Units/volume] in Serum [facility] [place] IgE Ab [Units/vo lume] in Serum [facility] [place] IgE Ab [Units/volume] in Serum [facility] Shrimp IgE Ab [Units/volume] in Serum [facility] Soybean IgE Ab [Units/volume] in Serum [facility] Tuna IgE Ab [Units/volume] in Serum [facility] [place] RAST [facility] Wheat IgE Ab [Units/volume] in Serum [facility] Whole Egg IgE Ab [Units/volume] in Serum [facility] Immunizations Immunization Date Immunization Notes Care Provider Ambrocio barbour 03-22-2023 tetanus toxoid, redu janelle diphtheria toxoid, and acellular pertussis vaccine, adsorbed [facility] Payers Date Payer Category Payer Self-pay [id number] 2024 Unknown [id number] Unknown [facility] [id number] Unknown [id number] [id number] Unknown [id number] Unknown [id number] [id number] Unknown [id number] Unknown [id number] [id number] Social History Date Type Detail Facility Start: 03-22-2023 Tobacco smoking stat [facility] Unknown if ever smoked [facility] Start: 1990 Sex Assigned At Male [facility] Start: 03-22-2023 End: 12-13-2024 Tobacco smoking status NHIS Current some day smoker [facility] Start: 2024 Sex Male (finding) [facility] Evaluation note 12-13-2024 Note Date & Type Note Facility 12-13-2024 Evaluation note Diagnosis Onset Date Resolution Diarrhea acute December 13, 2024 1:15pm [facility] Work Phone: Progress note 12-13-2024 Note Date & Type Note Facility 12-13-2024 Progress note [facility] Progress note 12-13-2024 Note Date & Type Note Facility 12-13-2024 Progress note Note Date/Time December 13, 2024 1:42p m [facility] [address] [place], [place] [address]. [address] [place] [address] OFFICE VISIT Date of Service: 12/13/24 MR#: [id number] Acct: [id number] Name: CYNDEE ROSS Rep #: [id number] : 1990 Provider: Dr. Gurvinder Cooley MD Age/Sex: 34/M Location: [facility] Status: Signed Intake Vital Signs 03/22/23 09:31 12/13/24 13:27 Height 5 ft 11 in 5 ft 10 in Weight: 304 lb BMI 43.6 BP 133/79 H Blood Pressure Location Rt brachial Position Sitting Respiration 18 Pulse 71 Pulse Source Monitor Temp 97.9 F Temp Source Temporal Pulse Oximetry (%) 97 Oxygen Delivery Method room air Intake Visit Reasons: DIARRHEA/GAS Chief Complaint: diarrhea/ gas Is patient in pain?: No Allergies No Known Allergies Allergy (Verified 12/13/24 13:28) Medications ?Medication ?Instructions ?Recorded ?Confirmed ?Type cholecalciferol (vitamin D3) 125 125 mcg PO QDAY 12/1312/13/24 History mcg (5,000 unit) capsule fluoxetine 40 mg capsule 40 mg PO QHS 12/13/24 History pantoprazole 20 mg tablet,delayed 20 mg PO QAM 5 12/13/24 History release PFSH Medical History (Updated 12/13/24 @ 13:27 by Danika Connolly LPN) Hx of fracture of finger Acid reflux Abdominal pain Diarrhea Hx of fracture of ankle Social History (Updated 12/13/24 @ 13:27 by Danika Connolly LPN) Smoking Status: Current some day smoker tobacco type: e-cigarettes alcohol intake: never substance use type: does not use HPI HPI HPI: The patient is a 34-year-old male who is being seen today for issues with chronic diarrhea and flatulence. He states that this has been an ongoing problem for probably years in retrospect. He states that he typically will have4-5 bouts of diarrhea daily. This may not be every day but this seems to be thecase more days than not in any given week. It sounds as though he is undergoinga workup by his primary care provider and thus far workup has been negative. Itsounds as though his stools were just recently sent off for cultures but no results have been resulted at this point. He was recommended to have a diagnostic colonoscopy to further evaluate his symptoms. He denies any black ortarry stools. No mucus in his stools. He denies any family history of colon polyps or colon cancers. No family history of Crohn's disease or ulcerative colitis etc. He states he has tried Imodium without any success long-term. This may improve his symptoms for less than a day only to have recurrence of diarrhea. He has not noticed any certain types of foods that are more problematic. He presents today to discuss colonoscopy. ROS General General: Yes fatigue; No weight change, appetite, colon cancer, breast cancer or weakness HEENT HEENT: No difficulty swallowing, eye injury, eye surgery, swollen glands or hoarseness Endo Endocrine: No thyroid disease, diabetes mellitus, thyroid cancer, Hair loss, heat intolerance or cold intolerance Skin Skin: No rash or changing moles Musc Musculoskeletal: Yes back problems; No arthritis, rheumatoid arthritis, gout or joint pain Cardio Cardiovascular: No murmur, pacemaker, heart disease, atrial fibrillation, high blood pressure, heart attack, heart stent, palpitations, shortness of breath with exertion or chest pain Psych Psychiatric: Yes depression and anxiety; No hearing voices Resp Respiratory: No shortness of breath, No sleep apnea, No cough, No COPD, No asthma, No emphysema and No wheezing Gastro Gastrointestinal: Yes abdominal pain, No nausea or vomiting, Yes diarrhea, No constipation, No blood in stool, Yes acid reflux, No hemorrhoids, No ulcers, No gallbladder problem and No black,tarry stools Marty Hematologic: No blood thinners, No blood disorders, No bleeding, No anemia and No blood clots Neuro Neurologic: No numbness, No tingling and No weakness Exam Const General: cooperative, healthy appearing and no acute distress Nutritional Appearance: obese and overweight [facility] Head: normal to inspection Eyes General: appearance normal, both eyes and all related structures Neck Neck: normal visual inspection Resp Effort & Inspection: normal respiratory effort and able to speak in complete sentences GI Inspection: normal to inspection Assessment and Plan Assessment and Plan (1) Diarrhea: Status: Acute Plan: Patient is a 34-year-old male who is being seen today with complaints of diarrhea and flatulence. Workup thus far has been unremarkable. He has not hada colonoscopy. No obvious family history of any GI related issues. I have offered him a colonoscopy with biopsies. We discussed the details of the planned procedure as well as risks benefits and alternatives. He wishes to proceed. This will be scheduled in a timely manner. Coding Level of Care Code Off vis,new,level 4 Diagnoses Diarrhea R19.7 12/13/24 1342 <Electronically signed by Cam morton MD> Date _ Cam Cooley MD Cosigner Signature: Date (if applicable) CC: Dr. Fransico Velasquez DO ~ [facility] Work Phone: Evaluation note Note Date & Type Note Facility Evaluation note No assessment information availa ble [facility] Work Phone: Hospital Discharge instructions Note Date & Type Note Facility Hospital Discharge instructions Additional Instructions X-ray negative for tetanus updated. 2 sutures placed to your hand. Follow-up with your doctor in 7 to 10 days for wound check and suture removal. [facility] Work Phone: Reason for referral (narrative) Note Date & Type Note Facility Reason for referral (narrative) No reason for referral information available [facility] Work Phone: Chief Complaint and Reason for Visit Chief Complaint RIGHT HAND Chief Complaint Admit Date STOOL December 12, 2024 12:36 pm DIARRHEA/GAS December 13, 2024 1:15p m Reason for Visit Admit Date Diarrhea December 13, 2024 1:15p m Advance Directives No Advanced Directives Records Found Advance Directive Response Recorded Date/ Time Living Will No March 22 023 10:35am Power of Laser Specialist No March 22, 2023 10:35am Summary Purpose Family History No Family History Records Found Additional Source Comments Care Teams (unrecognized sec tion and content) Team Status: Active Member Role Status Dates Dr. Fransico Velasquez DO Primary Care Provider Active Team Status: Inactive Member Role Status Dates Dr. Fransico Velasquez DO Primary Care Provider Active Start: August 31, 2024 End: August 31, 2024 Dr. Fransico Velasquez DO Attending Provider Active Start: August 31, 2024 End: August 31, 2024 Dr. Fransico Velasquez DO Referring Provider Active Start: August 31, 2024 End: August 31, 2024 Team Status: Inactive Member Role Status Dates Dr. Fransico Velasquez DO Primary Care Provider Active Start: October 29, 2024 End: October 29, 2024 ALBERTO Aguiar Attending Provider Active St art: October 29, 2024 End: October 29, 2024 Team Status: Active Member Role Status Dates Dr. Fransico Velasquez DO Primary Care Provider Active Start: December 12, 2024 ALBERTO Aguiar Attending Provider Active St art: December 12, 2024 ALBERTO Aguiar Referring Provider Active St art: December 12, 2024 Team Status: Inactive Member Role Status Dates Dr. Fransico Velasquez DO Primary Care Provider Active Start: December 13, 2024 End: December 13, 2024 Dr. Fransico Velasquez DO Referring Provider Active Start: December 13, 2024 End: December 13, 2024 Dr. Cam Cooley MD Attending Provider Active Start: December 13, 2024 End: December 13, 2024 Team Status: Active Member Role Status Dates No Primary Care Physician Family Provider Active Dr. Fransico Velasquez DO Primary Care Provider Active Team Status: Inactive Member Role Status Dates Dr. Topher Nolasco DO Emergency Provider Active Dr. Fransico Velasquez DO Primary Care Provider Active Team Status: Inactive Member Role Status Dates Dr. Fransico Velasquez DO Primary Care Provider Active Start: December 12, 2024 End: December 12, 2024 ALBERTO Aguiar Attending Provider Active St art: December 12, 2024 End: December 12, 2024 ALBERTO Aguiar Referring Provider Active St art: December 12, 2024 End: December 12, 2024 Goals (unrecognized section and content) Goals may be documented in a n alternate sectionGoals may be documented in an alternate sectionGoals may be documented in an alternate sectionGoals may be documented in an alternate section (unrecognized sect ion and content) No Status Records Found INFORMATION SOURCE (unrecogn ized section and content) DATE CREATED AUTHOR 12/25/2024 [facility] FOR RECORDS PERTAINING TO PATIENTS WHO ARE OR HAVE BEEN ENROLLED IN A CHEMICAL DEPENDENCY/SUBSTANCEABUSE PROGRAM, SOME INFORMATION MAY BE OMITTED. This clinical summary was aggregated from multiple sources. Caution should be exercised in using it in the provision of clinical care. This summary normalizes information from multiple sources, and as a consequence, information in this document may materially change the coding, format and clinical context of patient data. In addition, data may be omitted in some cases. CLINICAL DECISIONS SHOULD BE BASED ON THE PRIMARY CLINICAL RECORDS. [facility]. provides no warranty or guarantee of the accuracy or completeness of information in this document.
[2024-12-25] MEDS: Lactated Ringers 1,000 ML 15 ML IV (07:28)
--- NOTE | 2024-12-25 07:57 | PCM.PRE.AN2 ---
ASA Classification* ASA Classification ASA Classification: 3 Assessment & Plan Anesthesia* Anesthesia Assessment Anesthesia Assessment: Discussed sedation and/or anesthesia options, risks, benefits, and alternatives with patient/parents/legal guardian/POA. Questions invited. The patient/parents/legal guardian/POA seems to understand and agrees to proceed with anesthesia plan. Reviewed the physical assessment, medical history, allergy history and patient home medications list prior to surgery/procedure/anesthetic and documented any changes. Performed airway and anesthesia risk assessments. Anesthesia Type Anesthesia Type: MAC Anesthesia Focused Assessment* Temperature: 98.8 F Pulse Rate: 90 Blood Pressure: 133/82 Respiratory Rate: 16 Pulse Ox: 96 Airway Assessment Mouth opens: >3 cm Mallampati Score: II Labs Anesthesia Preop lab: CBC WBC 7.0 K/mm3 (4.4-11.0) 08/31/24 11:21 08/31/24 RBC 5.82 M/mm3 (4.6-6.2) 08/31/24 11:21 08/31/24 Hgb 17.2 g/dL (13.0-16.5) H 08/31/24 11:21 08/31/24 Hct 51.9 % (40-54) 08/31/24 11:21 08/31/24 Plt Count 212 K/mm3 (150-450) 08/31/24 11:21 08/31/24 CHEMISTRY Potassium 3.8 mmol/L (3.5-5.1) 08/31/24 11:21 08/31/24 Sodium 140 mmol/L (136-145) 08/31/24 11:21 08/31/24 BUN 10 mg/dL (7-18) 08/31/24 11:21 08/31/24 Creatinine 0.92 mg/dL (0.70-1.30) 08/31/24 11:21 08/31/24 Glucose 95 mg/dL (74-106) 08/31/24 11:21 08/31/24 TSH 1.640 uIU/mL (0.300-4.200) 10/29/24 09:07 10/29/24 COAG Pre-Assessment Diagnosis/Proposed Procedure Planned Operative Procedure(s): CSCOPE Anesthesia History Anesthesia History - powerhouse tender: Anesthesia History - powerhouse tender Hx Hospitalization No 12/20/24 14:27 Any Problems With Anesthesia No 12/20/24 14:27 Cholinesterase deficiency No 12/20/24 14:27 You/Your Family Experience No 12/20/24 14:27 fever (hyperthermia) with Relationship Recent Exposure to Contagious No 12/25/24 07:22 Disease Does patient have nerve No 12/20/24 14:27 stimulator Patient instructed to have device shut off --Does patient have Pacemaker No 12/25/24 07:22 or ICD? When Was Last Pacemaker Check QUESTION #4 FULL TEXT: You/Your Family Experience fever (hyperthermia) with Anesthesia Last Oral Intake Last Oral intake: Last Oral Intake NPO since 23:00 12/25/24 07:22 Meds taken in AM with sips of No 12/25/24 07:22 water? Meds patient instructed to take am of surgery PONV PONV - powerhouse tender: PONV - powerhouse tender Female No 12/20/24 14:27 HX of Motion Sickness No 12/20/24 14:27 HX of N/V After Surgery No 12/20/24 14:27 Non-Smoker No 12/20/24 14:27 Duration of Surgery greater No 12/20/24 14:27 than 60 minutes Number of Risk Factors PONV Score Height & Weight Height & Weight: Anesthesia: Height & Weight Height 5 ft 10 in 12/25/24 07:22 Weight: 133.4 kg 12/25/24 07:22 Body Mass Index (BMI) 42.2 12/25/24 07:22 Respiratory Assessment Respiratory Assessment - powerhouse tender: Respiratory Tract Infection Hx - powerhouse tender Hx Respiratory Tract Infection No 12/20/24 14:27 STOP Sleep Apnea STOP Sleep Apnea - powerhouse tender: STOP Sleep Apnea - powerhouse tender Hx Hypertension No 12/20/24 14:27 Hx Sleep Apnea No 12/20/24 14:27 CPAP BIPAP Do you snore loudly (louder Yes 12/20/24 14:27 than talking or can be heard Do you often feel tired/ Yes 12/20/24 14:27 fatigued/ sleepy during daytime? Has anyone observed you stop No 12/20/24 14:27 breathing during sleep? STOP Results Positive 12/20/24 14:27 QUESTION #5 FULL TEXT : Do you snore loudly (louder than talking or can be heard through closed doors)? Tobacco Use History Tobacco Use History - powerhouse tender: Tobacco Use History - powerhouse tender Tobacco Use Smoking Status Current every day smoker 12/20/24 14:27 Hx Tobacco Use Yes 12/20/24 14:27 Years Smoking Packs Smoked per Day Smoking Cessation Date was within the last 15 years Hx Smoking Cessation Date Hx Smoking Cessation Counseling Hematologic Medial History Hematologic Hx - powerhouse tender: Hematologic Medical Hx - collection systems technician Hx of Blood Transfusion No 12/20/24 14:27 Hx of Transfusion in last 3 No 12/20/24 14:27 Months Date of Last Transfusion (if within last 3 months) Ever experience any problems No 12/20/24 14:27 with transfusion(s)? Specify any problems Hx of Preganancy in last 3 N/A 12/20/24 14:27 Months Nurse Filling Out Transfusion NBUCHER 12/20/24 14:27 & Questions: Date: 12/20/24 12/20/24 14:27 Time: 14:28 12/20/24 14:27 Patient unable to answer at this time (ie. confused, unrespo /Reproduction History /Reproductive History - powerhouse tender: /Reproductive Hx- powerhouse tender Hx Now No 12/20/24 14:27 Gestational Age (in weeks): EDC: Hx Hx Para Hx Section SAB No 12/20/24 14:27 Active Medications Active Medications: Current Medications Generic Name Dose Route Start Last Admin Trade Name Freq PRN Reason Stop Dose Admin Lactated Ringer's 1,000 mls @ 15 mls/hr 12/25/24 07:15 12/25/24 07:28 IV 15 mls/hr .Q48H ROSSANA Administration PFSH Medical History PTSD (post-traumatic stress disorder) Depression Anxiety Electronic cigarette use Heartburn Gastric reflux Hx of fracture of finger Acid reflux Abdominal pain Diarrhea Hx of fracture of ankle Home Medications ?Medication ?Instructions ?Recorded ?Last Taken ?Type cholecalciferol (vitamin D3) 125 125 mcg PO QDAY 12/13/24 Unknown History mcg (5,000 unit) capsule fluoxetine 40 mg capsule 40 mg PO QHS 12/13/24 Unknown History pantoprazole 20 mg tablet,delayed 20 mg PO QAM 12/13/24 Unknown History release Allergy/AdvReac Type Severity Reaction Status Date / Time No Known Allergies Allergy Verified 12/25/24 07:21 Surgical History History of hand surgery Social History Smoking Status: Current every day smoker tobacco type: e-cigarettes alcohol intake: never substance use type: does not use Review of Systems (Anesthesia) ROS Narrative System reviewed and no additional complaints, except as documented.
--- NOTE | 2024-12-25 08:09 | PCM.HP.STD ---
HPI - General General Date of Admission: 12/25/24 Date of Service: 12/25/24 Chief Complaint: diarrhea HPI Narrative The patient is a 34-year-old male who is being seen today for issues with chronic diarrhea and flatulence. He states that this has been an ongoing problem for probably years in retrospect. He states that he typically will have 4-5 bouts of diarrhea daily. This may not be every day but this seems to be the case more days than not in any given week. It sounds as though he is undergoing a workup by his primary care provider and thus far workup has been negative. It sounds as though his stools were just recently sent off for cultures but no results have been resulted at this point. He was recommended to have a diagnostic colonoscopy to further evaluate his symptoms. He denies any black or tarry stools. No mucus in his stools. He denies any family history of colon polyps or colon cancers. No family history of Crohn's disease or ulcerative colitis etc. He states he has tried Imodium without any success long-term. This may improve his symptoms for less than a day only to have recurrence of diarrhea. He has not noticed any certain types of foods that are more problematic. He presents today for colonoscopy. [facility] Medical History PTSD (post-traumatic stress disorder) Depression Anxiety Electronic cigarette use Heartburn Gastric reflux Hx of fracture of finger Acid reflux Abdominal pain Diarrhea Hx of fracture of ankle Home Medications ?Medication ?Instructions ?Recorded ?Last Taken ?Type cholecalciferol (vitamin D3) 125 125 mcg PO QDAY 12/13/24 Unknown History mcg (5,000 unit) capsule fluoxetine 40 mg capsule 40 mg PO QHS 12/13/24 Unknown History pantoprazole 20 mg tablet,delayed 20 mg PO QAM 12/13/24 Unknown History release Allergy/AdvReac Type Severity Reaction Status Date / Time No Known Allergies Allergy Verified 12/25/24 07:21 Surgical History History of hand surgery Social History Smoking Status: Current every day smoker tobacco type: e-cigarettes alcohol intake: never substance use type: does not use Vital Signs Vital Signs Vital Signs: 12/25/24 07:22 12/25/24 07:22 12/25/24 07:57 Temperature 98.8 F 98.8 F Temperature Source Temporal Pulse Rate 90 90 Respiratory Rate 16 16 Respiratory Pattern Normal Blood Pressure 133/82 H 133/82 H Blood Pressure Mean 99 Blood Pressure Source Monitor Blood Pressure Position Semi-Fowlers Blood Pressure Location Right Arm Pulse Ox 96 96 Oxygen Delivery Method Room Air Weight Weight: 294 lb 1.546 oz Body Mass Index (BMI) 42.2 Physical Exam Const alert, oriented x3 and no apparent distress Assessment & Plan Assessment/Plan (1) Diarrhea: PLAN: Plan colonoscopy today
--- NOTE | 2024-12-25 08:15 | COLBX_PTH ---
PATIENT: CYNDEE ROSS LOC: EN U#:[id number] AGE/SX: 34/M ROOM: RE12/25/[address]: Dr. Cam Cooley MD : 1990 BED: DIS: 12/25/2024 SPEC #: [id number] RECD: 12/25/24 11:14 STATUS: LIUDMILA IVAN #: [id number] PATRICE: 12/25/24 08:[address]: Cam Cooley DEPT: SURGICAL PATHOLOGY RECD BY: Chapo White ENTERED: 12/25/24 11:50 SP TYPE: COLON BX OTHR DR: Vi Moncada, MANAGER OF COMMUNITY RELATIONS-C Tissues: A - COLON BIOPSY B - Rectum, NOS Procedures: Surgery Specimen Level IV HEADER OPERATION: Colonoscopy with polypectomy and biopsy PRE-OP DIAGNOSIS: Diarrhea TISSUE SUBMITTED: A- Random colon biopsy, B- Rectal polyp MICROSCOPIC DIAGNOSIS A. Large intestine, random, biopsies: * Benign without active inflammation or architectural distortion B. Rectum, polyp: * Tubular adenoma MICROSCOPIC DESCRIPTION Slides are reviewed. GROSS DESCRIPTION A. Received in fixative is one container labeled with the patient's name and designated Random colon biopsy. The specimen consists of multiple irregular fragments of light esparza tissue that in aggregate measure 1.1 x 0.4 x 0.2 cm. The specimen is totally submitted in one cassette. B. Received in fixative is one container labeled with the patient's name and designated Rectal polyp. The specimen consists of multiple irregular fragments of light esparza tissue that in aggregate measure 3 x 1.2 x 0.5 cm. The specimen is totally submitted in one cassette. 12/25/2024 CPT:24262k0
--- NOTE | 2024-12-25 08:45 | PCM.POST.ANE ---
Anesthesia: Postop Eval I Current Vital Signs Temperature: 97.1 F Pulse Rate: 72 Blood Pressure: 110/62 Respiratory Rate: 18 Pulse Ox: 100 Assessment Airway patent: Yes Spontaneous unlabored respirations: Yes nausea: No Vomiting: No Anesthesia Complication: No Fluid Hydration Crystalloid volume administer (ml): 400 Total IV fluid infused: 400 Progress Note Anesthesia document: Postop Eval 1 completed: Yes
--- NOTE | 2024-12-25 08:47 | OP.COLON_ITS ---
Patient Name: Rosalio Gonzalez Procedure Date: 12/25/2024 8:04 AM Date of : 1990 Age: 34 Procedure: Colonoscopy Indications: Clinically significant diarrhea of unexplained origin Providers: Cam Cooley MD Referring MD: Fransico Velasquez Medicines: Monitored Anesthesia Care Patient Profile: Refer to note in patient chart for documentation of history and physical. Last Colonoscopy: none. The patient's first colonoscopy is today. Complications: No immediate complications. Estimated blood loss: Minimal. Procedure: Pre-Anesthesia Assessment: - Prior to the procedure, a History and Physical was performed, and patient medications and allergies were reviewed. The patient's tolerance of previous anesthesia was also reviewed. The risks and benefits of the procedure and the sedation options and risks were discussed with the patient. All questions were answered, and informed consent was obtained. Prior Anticoagulants: The patient has taken no anticoagulant or antiplatelet agents. ASA Grade Assessment: II - A patient with mild systemic disease. After reviewing the risks and benefits, the patient was deemed in satisfactory condition to undergo the procedure. After I obtained informed consent, the scope was passed under direct vision. Throughout the procedure, the patient's blood pressure, pulse, and oxygen saturations were monitored continuously. The adult colonoscope was introduced through the anus and advanced to the cecum, identified by appendiceal orifice and ileocecal valve. The ileocecal valve, appendiceal orifice, and rectum were photographed. The entire colon was well visualized. The colonoscopy was performed without difficulty. The patient tolerated the procedure well. The quality of the bowel preparation was adequate. Moderate Sedation: See the other procedure note for documentation of moderate sedation with intraservice time. Scope In: 8:17:41 AM Scope Withdrawal Time 0 hours 10 minutes 21 seconds Scope Out: 8:37:59 AM Total Procedure Duration Time 0 hours 20 minutes 18 seconds Findings: The perianal and digital rectal examinations were normal. The perianal and digital rectal examinations were normal. Internal hemorrhoids were found during retroflexion. The hemorrhoids were mild. A 5 mm polyp was found in the rectum. The polyp was semi-pedunculated. The polyp was removed with a hot snare. Resection and retrieval were complete. Verification of patient identification for the specimen was done by the nurse using the patient's name, date and medical record number. Estimated blood loss was minimal. The entire examined colon appeared normal on direct and retroflexion views. Biopsies were taken with a cold large-capacity forceps from the entire colon for evaluation of microscopic colitis. These biopsy specimens from the entire colon were sent to Pathology. Impression: - Internal hemorrhoids. - One 5 mm polyp in the rectum, removed with a hot snare. Resected and retrieved. - The entire examined colon is normal on direct and retroflexion views. Recommendation: - Discharge patient to home (ambulatory). - High fiber diet. - Await pathology results. - Repeat colonoscopy in 5 years for surveillance. - Return to my office PRN. - Continue present medications. Procedure Code(s): --- Professional --- 97061, Colonoscopy, flexible; with removal of tumor(s), polyp(s), or other lesion(s) by snare technique 17990, 59, Colonoscopy, flexible; with biopsy, single or multiple Diagnosis Code(s): --- Professional --- K64.8, Other hemorrhoids R19.7, Diarrhea, unspecified D12.8, Benign neoplasm of rectum CPT copyright 2021 [employer]. All rights reserved. The codes documented in this report are preliminary and upon medical insurance coder review may be revised to meet current compliance requirements. Cam Cooley MD 12/25/2024 8:46:42 AM This report has been signed electronically. Number of Addenda: 0 Note Initiated On: 12/25/2024 8:04 AM
--- NOTE | 2024-12-25 08:47 | OP.CCLET_ITS ---
12/25/2024 Fransico Velasquez [address] [place] [address] Re : Colonoscopy procedure for Rosalio Gonzalez Dear Dr. Velasquez This procedure was performed on Wednesday, December 25, 2024. My impressions and recommendations are as follows: Impressions : - Internal hemorrhoids. - One 5 mm polyp in the rectum, removed with a hot snare. Resected and retrieved. - The entire examined colon is normal on direct and retroflexion views. Recommendations : - Discharge patient to home (ambulatory). - High fiber diet. - Await pathology results. - Repeat colonoscopy in 5 years for surveillance. - Return to my office PRN. - Continue present medications. My findings are described in the full procedure note, which is enclosed. If I can be of further assistance, please feel free to contact me at . Sincerely, Cam Cooley MD 12/25/2024 8:46:42 AM This report has been signed electronically.
--- NOTE | 2024-12-25 09:48 | POSTOPAN2_ITS ---
Anesthesia Postop Eval I Sum Postop Eval Completion status Anesthesia document: Postop Eval 1 completed: Yes Anesthesia Postop Eval I Summary Anesthesia Postop Eval I Summary: Anesthesia Postop Eval I: Assessment Summary Airway patent Yes 12/25/24 08:45 VOCATIONAL NURSING INSTRUCTOR.CSIR Spontaneous unlabored Yes 12/25/24 08:45 VOCATIONAL NURSING INSTRUCTOR.CSIR respirations Mental status nausea No 12/25/24 08:45 VOCATIONAL NURSING INSTRUCTOR.CSIR Vomiting No 12/25/24 08:45 VOCATIONAL NURSING INSTRUCTOR.CSIR Anesthesia Postop Eval I: Fluid Summary Crystalloid volume administer 400 12/25/24 08:45 VOCATIONAL NURSING INSTRUCTOR.CSIR (ml) Colloids volume administered ( ml) Blood Product volume administered (ml) Total IV fluid infused 400 12/25/24 08:45 VOCATIONAL NURSING INSTRUCTOR.CSIR Anesthesia Postop Eval I: Summary Notes Anesthesia Complication No 12/25/24 08:45 VOCATIONAL NURSING INSTRUCTOR.CSIR Anesthesia Complication Comment: Post-operative progress note Anesthesia: Postop Eval II Evaluation Mental status: Awake Pain Level: 0 nausea: No Vomiting: No
--- NOTE | 2024-12-25 09:48 | PCM.POSTANE2 ---
Anesthesia Postop Eval I Sum Postop Eval Completion status Anesthesia document: Postop Eval 1 completed: Yes Anesthesia Postop Eval I Summary Anesthesia Postop Eval I Summary: Anesthesia Postop Eval I: Assessment Summary Airway patent Yes 12/25/24 08:45 FUNDRAISING DIRECTOR.CSIR Spontaneous unlabored Yes 12/25/24 08:45 FUNDRAISING DIRECTOR.CSIR respirations Mental status nausea No 12/25/24 08:45 FUNDRAISING DIRECTOR.CSIR Vomiting No 12/25/24 08:45 FUNDRAISING DIRECTOR.CSIR Anesthesia Postop Eval I: Fluid Summary Crystalloid volume administer 400 12/25/24 08:45 FUNDRAISING DIRECTOR.CSIR (ml) Colloids volume administered ( ml) Blood Product volume administered (ml) Total IV fluid infused 400 12/25/24 08:45 FUNDRAISING DIRECTOR.CSIR Anesthesia Postop Eval I: Summary Notes Anesthesia Complication No 12/25/24 08:45 FUNDRAISING DIRECTOR.CSIR Anesthesia Complication Comment: Post-operative progress note Anesthesia: Postop Eval II Evaluation Mental status: Awake Pain Level: 0 nausea: No Vomiting: No
== END 2024-12-25 09:15 | disposition home or self-care (01) ==
LOC: EN 06:59 → AC 07:00
PROVIDERS: PCP Nurse Practitioner Family; Referring Provider Nurse Practitioner Family; Visit Provider Surgery
PROC: 0DJD8ZZ Inspection of Lower Intestinal Tract, Via Natural or Artificial Opening Endoscopic (ICD-10-PCS; CPT 45378; principal; 2024-12-25 08:10)
DX: D12.8 Benign neoplasm of rectum (principal); R19.7 Diarrhea, unspecified; K21.9 Gastro-esophageal reflux disease without esophagitis; K64.8 Other hemorrhoids; F17.290 Nicotine dependence, other tobacco product, uncomplicated
CPT/HCPCS: 45385; 45380; 88305; J2405

== ENCOUNTER → 2025-01-15 | Outpatient (CLI) | payer MEDICAID, SELFPAY ==
--- NOTE | 2025-01-15 09:34 | US_ITS ---
PROCEDURE: ABDOMEN LIMITED 01/15/2025 REASON FOR EXAM: DIARRHEA, ABD PAIN COMPARISON: None FINDINGS: GALLBLADDER: No gallstones. no gallbladder wall thickening or pericholecystic fluid. Negative Theodore sign. COMMON BILE DUCT: Measures 3 mm. No intrahepatic biliary dilatation. LIVER: Enlarged 21.5 cm. Echogenic liver. No definite hepatic mass. RIGHT KIDNEY: Normal in size and echogenicity. No mass. No urinary stones. No hydronephrosis. Cysts noted within the lateral inferior aspect measuring 1.5 x 1.2 x 1.4 cm. Pancreas not well visualized. US/Abdomen Limited IMPRESSION: No acute cholecystitis. Hepatic steatosis and hepatomegaly. Reading Location: [id number]
--- NOTE | 2025-01-15 09:38 | RAD_ITS ---
EXAM: XR Cervical Spine, 2 or 3 Views CLINICAL INDICATION: CERVICALGIA TECHNIQUE: Frontal and lateral views of the cervical spine. COMPARISON: No relevant prior studies available. FINDINGS: VERTEBRAE: Straightening of cervical spine alignment may be secondary to muscular spasm or positioning. Mild endplate degenerative changes and disc disease of C3-C7. No definite fracture. DISC SPACES: No acute findings. No significant narrowing. SOFT TISSUES: Unremarkable. RAD/Cerv Spine 2 or 3 Views IMPRESSION: Degenerative changes as above. Reading Location: [facility]
--- NOTE | 2025-01-15 09:38 | RAD_ITS ---
PROCEDURE: THORACIC SPINE 2 VIEWS 01/15/2025 REASON FOR EXAM: PAIN IN THORACIC SPINE TECHNIQUE: THORACIC SPINE 3 VIEWS COMPARISON: None FINDINGS: Vertebrae: No fracture or suspicious osseous lesion Discs: Disc space narrowing noted throughout the thoracic spine. Alignment: Anatomic Other: No suspicious paraspinal mass or absent pedicle RAD/Thoracic Spine 2 Views IMPRESSION: Age consistent degenerative changes, no acute findings Reading Location: [id number]
--- OUTSIDE RECORDS SUMMARY | 2025-01-15 20:01 | XMS RPT_ITS | CCD ---
Author Organization [facility] Care Team Providers Care Die Caster Name Role Phone Dr. Fransico Velasquez DO Primary Care Provider Dr. Fransico Velasquez DO Attending Provider Dr. Fransico Velasquez DO Referring Provider Antwan CROWN ASSEMBLY MACHINE OPERATOR-C, Vi Attending Provider Antwan CROWN ASSEMBLY MACHINE OPERATOR-C, Vi Referring Provider Yasir MIJARES, Dr. Cam Arteaga Attending Provider Antwan CROWN ASSEMBLY MACHINE OPERATOR-C, Vi Primary Care Provider Dr. Cam Cooley MD Other Provider [phone] Dr. Fransico Velasquez DO Primary Care Provider Dr. Fransico Velasquez DO Referring Provider Myrick CROWN ASSEMBLY MACHINE OPERATOR-C, Milly Attending Provider Fransico Velasquez Primary Care Unavailable Fransico Velasquez Attending Unavailable Fransico Velasquez Referring Unavailable Ramez, Milly Attending Unavailable Myrick, Milly Referring Unavailable Antwan, Vi Primary Care Unavailable Ramez, Milly Attending Unavailable Antwan, Vi Referring Unavailable Antwan, Vi Primary Care Unavailable Antwan, Vi Referring Unavailable Antwan, Vi Primary Care Unavailable Cam Cooley Consulting Unavailable Cam Cooley Attending Unavailable Fransico Velasquez Referring Unavailable Cam Cooley Attending Unavailable Fransico Velasquez Primary Care Unavailable Cam Cooley Attending Unavailable Antwan, Vi Primary Care Unavailable Antwan, Vi Referring Unavailable Antwan, Vi Attending Unavailable Antwan, Vi Referring Unavailable Fransico Velasquez Primary Care Unavailable Antwan, Vi Attending Unavailable Fransico Velasquez Primary Care Unavailable Medications Current Medications Medication Drug Class(es) Dates Sig (Normalized) Sig (Original) cholecalciferol 0.125 mg oral capsule (4 sources) Vitamin D Start: 12-13-2024 take 1 capsule by mouth once daily Cholecalciferol (Vitamin D3) 125 mcg (5,000 unit) capsule Active 125 ug PO daily December 13, 2024 12:00am dicyclomine hydrochloride 10 mg oral capsule (1 source) Anticholinergic Start: 01-10-2025 take 1 capsule by mouth three times daily Dicyclomine 10 mg capsule Active 10 mg PO THREE TIMES A DAY 60 January 10, 2025 12:00am FLUoxetine 40 mg oral capsule (4 sources) Serotonin Reuptake Inhibitor Start: 12-13-2024 take 1 capsule by mouth at bedtime Fluoxetine 40 mg capsule Active 40 mg PO AT BEDTIME December 13, 2024 12:00am pantoprazole 40 mg delayed release oral tablet (5 sources) Proton Pump Inhibitor Start: 01-10-2025 take 1 tablet by mouth once daily Pantoprazole 40 mg tablet,delayed release (DR/EC) Active 40 mg PO DAILY 90 January 10, 2025 12:00am Start: 12-13-2024 End: 01-10-2025 take 1 tablet by mouth once daily in the morning Pantoprazole 20 mg tablet,delayed release (DR/EC) Discontinued 20 mg PO EVERY MORNING December 13, 2024 12:00am January 10, 2025 9:10am Problems Problem Classification Problem Date Documented Da te Episodic/Chronic Abdominal pain (6 sources) Abdominal pain; Translations: [Unspecified abdominal pain] Onset: 5 12-13-2024 Episodic Esophageal disorders (6 sources) Gastroesophageal reflux disease; Translations: [Gastro-esophageal reflux disease without esophagitis] Onset: 5 12-13-2024 Chronic Immunizations and screening for infectious disease (6 sources) Tetanus toxoid vaccination given; Translations: [Encounter for immunization] 03-22-2023 Episodic Open wounds of extremities (6 sources) Laceration of hand; Translations: [Laceration without foreign body of right hand, initial encounter] 03-22-2023 Episodic Other gastrointestinal disorders (10 sources) Diarrhea; Translations: [Diarrhea, unspecified] 12-13-2024 Episodic Other gastrointestinal disorders (2 sources) Diarrhea, unspecified; Translations: [Diarrhea, unspecified] Onset: Episodic Results Test Name Value Interpretation Reference Range Facility Gastroenterology Visit Repor ton 01-10-2025 Gastroenterology Visit Report [facility] [address] [place] [address] OFFICE VISIT Date of Service: 01/10/25 MR#: [id number] Acct: [id number] Name: CYNDEE GONZALEZ Rep #: [id number] : 1990 Provider: ALBERTO shaver Age/Sex: 34/M Location: [facility] Status: Signed Intake Vital Signs 12/25/24 07:22 Height 5 ft 10 in Intake Visit Reasons: CHRONIC Diarrhea Chief Complaint: diarrhea/ gas Allergies No Known Allergies Allergy (Verified 01/10/25 08:42) Medications ???Medication ???Instructions ???Recorded ???Confirmed ???Type cholecalciferol (vitamin D3) 125 125 mcg PO QDAY 12/13/24 01/10/25 History mcg (5,000 unit) capsule fluoxetine 40 mg capsule 40 mg PO QHS 12/13/24 01/10/25 His tory dicyclomine 10 mg capsule 10 mg PO TID #60 caps 01/10/25 Rx pantoprazole 40 mg tablet,delayed 40 mg PO DAILY #90 tabs 01/10/25 01/10/25 Rx release PFSH Medical History PTSD (post-traumatic stress disorder) Depression Anxiety Electronic cigarette use Heartburn Gastric reflux Hx of fracture of finger Acid reflux Abdominal pain Diarrhea Hx of fracture of ankle Surgical History History of hand surgery Social History Smoking Status: Current every day smoker tobacco type: e-cigarettes alcohol intake: never substance use type: does not use HPI HPI Chief Complaint: diarrhea/ gas Details: CYNDEE GONZALEZ, is a 34 M who presents to the office today for establishment with [facility] regarding concerns for chronic diarrhea. He reports liquids BMs about 5 times daily to once every hour that he's awake. He states that some BMs are pure water running out of me and others are like mousse. He admits that occasionally the need for a BM will wake him from sleep. He states that he has not noticed a correlation between eating and increased frequency of stools. He reports diffuse abdominal cramping to pain that is relieved by a BM. He reports excessive belching and flatulence. He reports that his heartburn has improved but he still wakes to a sour taste in his mouth and has occasional heartburn while on pantoprazole 20mg daily from his PCP. For his diarrhea, he has tried OTC anti- diarrheals and they work for the first couple of days, but then stop. He reports family history of DM, but denies autoimmune disease and colon cancer. He denies exposure to known ill persons and drinks city water. 11.22.24 Biochemical workup by PCP/WSA: lactoferrin, enteric, cdiff, O P-all NEG; RAST, celiac NEG, TSH 1.64; AST and ALT elevated(45,72) on 08.31.24, but decreasing on 10.29.(33,50) 6..25 colonoscopy([facility]) - Internal hemorrhoids. - One 5 mm polyp in the rectum, removed with a hot snare. Resected and retrieved. PATH: Benign without active inflammation or architectural distortion. Tubular adenoma - The entire examined colon is normal on direct and retroflexion views. - Repeat in 5years. ROS Const Constitutional: No chills, fatigue, fever(s) or weight change Eyes Eyes: No change in vision ENT ENT: No difficulty swallowing Cardio Cardiology: No chest pain at rest, chest pain with exertion or leg pain with exertion Gastro GI: Positive for abdominal pain, belching, bloating, diarrhea and excessive flatus; No change in bowel habits, change in stool character, coffee ground emesis, constipation, cramping, heartburn, difficulty swallowing, feeling full early, incontinent of stools, Vomiting blood/h ematemesis, Blood in stool, loose stools, Black,tarry stools, nausea/dyspepsia, pain with swallowing, vomiting or other Musc Musculoskeletal: No joint pain or leg pain with exertion Skin Skin: No yellowing of the eye or itchy eyes Psych Psychiatric: No anxiety and No depression Endo Endocrine: No fatigue or weight change Aller/Imm Allergy/Immunologic: No itchy eyes Marty/Lymp Hematologic/Lymphati c: No easy bleeding or easy bruising Exam Const General: cooperative, healthy appearing, comfortable and no acute distress Nutritional Appearance: obese morbidly obese Orientation: alert and oriented x3 HENTX Head: normal to inspection Ears: hearing grossly normal bilaterally Eyes General: appearance normal, both eyes and all related structures Sclera: sclerae normal Neck Neck: normal visual inspection and full ROM Chest Chest palpation inspection: normal inspection of the chest Resp Effort Inspection: normal respiratory effort, able to speak in complete sentences and symmetric chest movement GI Inspection: normal to inspection, large pannus and obesity Skin General: no rashes or lesions noted Neuro General: patient alert, patient oriented x3 and moves all ex (more content not included)... Normal [facility] Colonoscopy Reporton 025 Colonoscopy Report [facility] Medical Records Department [address] [place] [address] Colonoscopy Report MR#: [id number] Acct: [id number] Name: CYNDEE GONZALEZ Rep #: [id number] : 1990 34 From: Cam Cooley MD PCP: ALBERTO Aguiar Status:REG [facility] Patient Name: Cyndee Gonzalez Procedure Date: 12/25/2024 8:04 AM Date of : 1990 Age: 34 Procedure: Colonoscopy Indications: Clinically significant diarrhea of unexplained origin Providers: Cam Cooley MD Referring MD: Fransico Velasquez Medicines: Monitored Anesthesia Care Patient Profile: Refer to note in patient chart for documentation of history and physical. Last Colonoscopy: none. The patient's first colonoscopy is today. Complications: No immediate complications. Estimated blood loss: Minimal. Procedure: Pre-Anesthesia Assessment: - Prior to the procedure, a History and Physical was performed, and patient medications and allergies were reviewed. The patient's tolerance of previous anesthesia was also reviewed. The risks and benefits of the procedure and the sedation options and risks were discussed with the patient. All questions were answered, and informed consent was obtained. Prior Anticoagulants: The patient has taken no anticoagulant or antiplatelet agents. ASA Grade Assessment: II - A patient with mild systemic disease. After reviewing the risks and benefits, the patient was deemed in satisfactory condition to undergo the procedure. After I obtained informed consent, the scope was passed under direct vision. Throughout the procedure, the patient's blood pressure, pulse, and oxygen saturations were monitored continuously. The adult colonoscope was introduced through the anus and advanced to the cecum, identified by appendiceal orifice and ileocecal valve. The ileocecal valve, appendiceal orifice, and rectum were photographed. The entire colon was well visualized. The colonoscopy was performed without difficulty. The patient tolerated the procedure well. The quality of the bowel preparation was adequate. Moderate Sedation: See the other procedure note for documentation of moderate sedation with intraservice time. Scope In: 8:17:41 AM Scope Withdrawal Time 0 hours 10 minutes 21 seconds Scope Out: 8:37:59 AM Total Procedure Duration Time 0 hours 20 minutes 18 seconds Findings: The perianal and digital rectal examinations were normal. The perianal and digital rectal examinations were normal. Internal hemorrhoids were found during retroflexion. The hemorrhoids were mild. A 5 mm polyp was found in the rectum. The polyp was semi-pedunculated. The polyp was removed with a hot snare. Resection and retrieval were complete. Verification of patient identification for the specimen was done by the nurse using the patient's name, date and medical record number. Estimated blood loss was minimal. The entire examined colon appeared normal on direct and retroflexion views. Biopsies were taken with a cold large-capacity forceps from the entire colon for evaluation of microscopic colitis. These biopsy specimens from the entire colon were sent to Pathology. Impression: - Internal hemorrhoids. - One 5 mm polyp in the rectum, removed with a hot snare. Resected and retrieved. - The entire examined colon is normal on direct and retroflexion views. Recommendation: - Discharge patient to home (ambulatory). - High fiber diet. - Await pathology results. - Repeat colonoscopy in 5 years for surveillance. - Return to my office PRN. - Continue present medications. Procedure Code(s): --- Professional --- 38004, Colonoscopy, flexible; with removal of tumor(s), polyp(s), or other lesion(s) by snare technique 08559, 59, Colonoscopy, flexible; with biopsy, single or multiple Diagnosis Code(s): --- Professional --- K64.8, Other hemorrhoids R19.7, Diarrhea, unspecified D12.8, Benign neoplasm of rectum CPT copyright 2021 [employer]. All rights reserved. The codes documented in this report are preliminary and upon rivet passer review may be revised to meet current compliance requirements. Cam Cooley MD 12/25/2024 8:46:42 AM This report has been signed electronically. Number of Addenda: 0 Note Initiated On: 12/25/2024 8:04 AM 12/25/24845 Date Cam Cooley MD Cosigner Signature: Date (if indicated) CC: CROWN ASSEMBLY MACHINE OPERATOR-C Vi Moncada; Dr. Fransico Velasquez DO; Dr. Cam Cooley MD Date Dictated: 12/25/24803 Date Transcribed: Crayon Sawyer: FRANCIA Presley [facility] MR/POSTOP.Isabela 12-25-2024 MR/POSTOP.[facility] Medical Records Department [address] [place] [address] Anesthesia Postop Eval I 12/25/24844 MR#: [id number] Acct: [id number] Name: CYNDEE GONZALEZ Rep #: [id number] : 1990 34 From: Mariam Nunes CRNA PCP: SHAY AguiarC Status:REG [facility] Y Race: C Location: [place] [address] Anesthesia: Postop Eval I Current Vital Signs Temperature: 97.1 F Pulse Rate: 72 Blood Pressure: 110/62 Respiratory Rate: 18 Pulse Ox: 100 Assessment Airway patent: Yes Spontaneous unlabored respirations: Yes nausea: No Vomiting: No Anesthesia Complication: No Fluid Hydration Crystalloid volume administer (ml): 400 Total IV fluid infused: 400 Progress Note Anesthesia document: Postop Eval 1 completed: Yes 12/25/24844 Date Mariam Nunes BEAD STRINGER Cosigner Signature: CC: Signed Normal [facility] MR/[id number] 12-25-2024 MR/POSTOPAN2 [facility] Medical Records Department [address] [place] [address] Anesthesia Postop Eval II 12/25/24 0948 MR#: [id number] Acct: [id number] Name: CYNDEE GONZALEZ Rep #: [id number] : 1990 34 From: Amandeep Loving MD PCP: SHAY AguiarC Status:[facility] Y Race: C Location: EN Anesthesia Postop Eval I Sum Postop Eval Completion status Anesthesia document: Postop Eval 1 completed: Yes Anesthesia Postop Eval I Summary Anesthesia Postop Eval I Summary: Anesthesia Postop Eval I: Assessment Summary Airway patent Yes 12/25/24 08:45 BEAD [email or web address].CSIR Spontaneous unlabored Yes 12/25/24 08:45 BEAD STRINGER.CSIR respirations Mental status nausea No 12/25/24 08:45 BEAD STRINGER.CSIR Vomiting No 12/25/24 08:45 BEAD STRINGER.CSIR Anesthesia Postop Eval I: Fluid Summary Crystalloid volume administer 400 12/25/24 08:45 BEAD STRINGER.CSIR (ml) Colloids volume administered ( ml) Blood Product volume administered (ml) Total IV fluid infused 400 12/25/24 08:45 BEAD STRINGER.CSIR Anesthesia Postop Eval I: Summary Notes Anesthesia Complication No 12/25/24 08:45 BEAD STRINGER.CSIR Anesthesia Complication Comment: Post-operative progress note Anesthesia: Postop Eval II Evaluation Mental status: Awake Pain Level: 0 nausea: No Vomiting: No 12/25/2449 Date Amandeep Sevillaigner Signature: Date CC: Signed Normal [facility] Surgery Specimen Level Crow 12-25-2024 Surgery Specimen Level IV Patient Age/Sex Location Account Attending Physician CYNDEE GONZALEZ 34/M EN [id number] Dr. Cam Cooley MD Specimen: [id number] Received: 12/25/24 Status: LIUDMILA Kwabena Num: [id number] Spec Type: COLON BX Subm Dr: Dr. Cam Cooley MD HEADER OPERATION: Colonoscopy with polypectomy and biopsy PRE-OP DIAGNOSIS: Diarrhea TISSUE SUBMITTED: A- Random colon biopsy, B- Rectal polyp MICROSCOPIC DIAGNOSIS A. Large intestine, random, biopsies: * Benign without active inflammation or architectural distortion B. Rectum, polyp: * Tubular adenoma MICROSCOPIC DESCRIPTION Slides are reviewed. GROSS DESCRIPTION A. Received in fixative is one container labeled with the patient's name and designated Random colon biopsy. The specimen consists of multiple irregular fragments of light esparza tissue that in aggregate measure 1.1 x 0.4 x 0.2 cm. The specimen is totally submitted in one cassette. B. Received in fixative is one container labeled with the patient's name and designated Rectal polyp. The specimen consists of multiple irregular fragments of light esparza tissue that in aggregate measure 3 x 1.2 x 0.5 cm. The specimen is totally submitted in one cassette. 12/25/2024 CPT:48021d2 Patient Age/Sex Location Account Attending Physician CYNDEE GONZALEZ 34/M EN [id number] Dr. Cam Cooley MD Signed (signature on file) Dr. Mehul Cesar MD 12/27/24 1431 [facility] Comment on above: Performed By: #### M 100.6796, M100.0605, M100.637, M600.5000 #### [facility] [address] [facility]. [place], [place], [id number] Ova and Parasites 8623 OP OVA AND PARASITES EXAM, ROUTINE These results were obtained using wet preparation(s) and trichrome stained smear. This test does not include testing for Crytosporidium parvum, Cyclospora, or Microsporidia. One negative specimen does not rule out the possibility of a parasitic infection. TESTING PERFORMED AT [facility]. ORIGINAL REPORT ON FILE IN LAB CONTAINS ADDITIONAL TEST SITE INFORMATION. Ova/Parasite Exam NO OVA, CYSTS, OR PARASITES FOUND. [facility] Comment on above: Performed By: #### M 100.6796, M100.0605, M100.637, M600.5000 #### [facility] [address] [facility] [place], [place], [id number] CDIFF (PCR)on 12-13-2024 CDIFF Pending 027 027 NAP1-B1 Presumptive Negative *for epidemiolologic???us e C. Diff PCR Negative- No toxigenic C. Diff Detected Normal [facility] Comment on above: Performed By: #### M 100.6796, M100.0605, M100.637, M600.5000 #### [facility] [address] [place], [place], [id number] ENTERIC PATHOGEN PANEL STOOL on 12-13-2024 EP [...] VIBRIO Not Detected Yersinia Not Detected Normal [facility] Comment on above: Performed By: #### M 100.6796, M100.0605, M100.637, M600.5000 #### [facility] [address] [place], [place], [id number] Stool Lactoferrin/WBCon 11-16 WBCST Normal Reference Range = Negative Fecal WBC Lactoferrin Negative: No Fecal WBC Lactoferrin present Normal [facility] Comment on above: Performed By: #### M 100.6796, M100.0605, M100.637, M600.5000 #### [facility] [address] [place], [place], [id number] Surgery Visit Reporton 12-13 Surgery Visit Report [facility] [address] [place], [place] [address] OFFICE VISIT Date of Service: 12/13/24 MR#: [id number] Acct: [id number] Name: CYNDEE GONZALEZ Rep #: [id number] : 1990 Provider: Dr. Cam hugo MD Age/Sex: 34/M Location: [facility] Status: Signed Intake Vital Signs 03/22/23 09:31 [...] acute distress Nutritional Appearance: obese and overweight [facility] Head: normal to inspection Eyes General: appearance [...] be schedul (more content not included)... Normal [facility] Clostridium difficile detect ion by polymerase chain reactionOrdered By: Vi Moncada on 12-12-2024 C. difficile DNA ANDERSON+probe Ql (Unsp spec) [facility] Stool lactoferrin detection by immunoassayOrdered By: Vi Moncada on 12-12-2024 Lactoferrin IA Ql (Stl) [facility] Beefon 11-07-2024 BEEF TNP Normal [facility] Comment on above: Performed By: #### L 101.9900, L5530.0009, L5530.0399, L5530.1389, L5530.1169, L501.6710, L501.9520, L5530.1649, L3410.2400, L5530.1669, L5530.1399, L500.3400, L5530.0569, L5530.1479, L5530.1319, L506.0400, L5500.0550, L5530.0479, L5530.0169 ####[facility] [address] [place], [place], [id number] Cornon 11-07-2024 CORN TNP [facility] Comment on above: Performed By: #### L 101.9900, L5530.0009, L5530.0399, L5530.1389, L5530.1169, L501.6710, L501.9520, L5530.1649, L3410.2400, L5530.1669, L5530.1399, L500.3400, L5530.0569, L5530.1479, L5530.1319, L506.0400, L5500.0550, L5530.0479, L5530.0169 ####[facility] [address] [place], [place], [id number] Peanuton 11-07-2024 PEANUT TNP Normal [facility] Comment on above: Performed By: #### L 101.9900, L5530.0009, L5530.0399, L5530.1389, L5530.1169, L501.6710, L501.9520, L5530.1649, L3410.2400, L5530.1669, L5530.1399, L500.3400, L5530.0569, L5530.1479, L5530.1319, L506.0400, L5500.0550, L5530.0479, L5530.0169 ####[facility] [address] [place], [place], [address] Porkon 11-07-2024 PORK TNP Normal [facility] Comment on above: Performed By: #### L 101.9900, L5530.0009, L5530.0399, L5530.1389, L5530.1169, L501.6710, L501.9520, L5530.1649, L3410.2400, L5530.1669, L5530.1399, L500.3400, L5530.0569, L5530.1479, L5530.1319, L506.0400, L5500.0550, L5530.0479, L5530.0169 ####[facility] [address] [place], [place], [id number] Soybeanon 11-07-2024 SOYBEAN TNP Normal [facility] Comment on above: Performed By: #### L 101.9900, L5530.0009, L5530.0399, L5530.1389, L5530.1169, L501.6710, L501.9520, L5530.1649, L3410.2400, L5530.1669, L5530.1399, L500.3400, L5530.0569, L5530.1479, L5530.1319, L506.0400, L5500.0550, L5530.0479, L5530.0169 ####[facility] [address] [place], [place], [id number] Sentinel 11-07-2024 WHEAT TNP Normal [facility] Comment on above: Performed By: #### L 101.9900, L5530.0009, L5530.0399, L5530.1389, L5530.1169, L501.6710, L501.9520, L5530.1649, L3410.2400, L5530.1669, L5530.1399, L500.3400, L5530.0569, L5530.1479, L5530.1319, L506.0400, L5500.0550, L5530.0479, L5530.0169 ####[facility] [address] [place], [place], [id number] Almondon 11-05-2024 ALMOND <0.10 Normal Class 0 [facility] Comment on above: Performed By: #### L 101.9900, L5530.0009, L5530.0399, L5530.1389, L5530.1169, L501.6710, L501.9520, L5530.1649, L3410.2400, L5530.1669, L5530.1399, L500.3400, L5530.0569, L5530.1479, L5530.1319, L506.0400, L5500.0550, L5530.0479, L5530.0169 ####[facility] [address] [place], [place], [id number] Chickenon 11-05-2024 CHICKEN <0.10 Normal Class 0 [facility] Comment on above: Performed By: #### L 101.9900, L5530.0009, L5530.0399, L5530.1389, L5530.1169, L501.6710, L501.9520, L5530.1649, L3410.2400, L5530.1669, L5530.1399, L500.3400, L5530.0569, L5530.1479, L5530.1319, L506.0400, L5500.0550, L5530.0479, L5530.0169 ####[facility] [address] [place], [place], [id number] Egg, Whiteon 11-05-2024 EGG, WHITE <0.10 Normal Class 0 [facility] Comment on above: Performed By: #### L 101.9900, L5530.0009, L5530.0399, L5530.1389, L5530.1169, L501.6710, L501.9520, L5530.1649, L3410.2400, L5530.1669, L5530.1399, L500.3400, L5530.0569, L5530.1479, L5530.1319, L506.0400, L5500.0550, L5530.0479, L5530.0169 ####[facility] [address] [place], [address] L5500.0550on 11-05-2024 BEEF <0.10 Normal Class 0 [facility] Comment on above: Performed By: #### L 101.9900, L5530.0009, L5530.0399, L5530.1389, L5530.1169, L501.6710, L501.9520, L5530.1649, L3410.2400, L5530.1669, L5530.1399, L500.3400, L5530.0569, L5530.1479, L5530.1319, L506.0400, L5500.0550, L5530.0479, L5530.0169 ####[facility] [address] [place], [place], [id number] CHOCOLATE <0.10 Normal Class 0 [facility] Comment on above: Performed By: #### L 101.9900, L5530.0009, L5530.0399, L5530.1389, L5530.1169, L501.6710, L501.9520, L5530.1649, L3410.2400, L5530.1669, L5530.1399, L500.3400, L5530.0569, L5530.1479, L5530.1319, L506.0400, L5500.0550, L5530.0479, L5530.0169 ####[facility] [address] [place], [place], [id number] CODFISH <0.10 Normal Class 0 [facility] Comment on above: Performed By: #### L 101.9900, L5530.0009, L5530.0399, L5530.1389, L5530.1169, L501.6710, L501.9520, L5530.1649, L3410.2400, L5530.1669, L5530.1399, L500.3400, L5530.0569, L5530.1479, L5530.1319, L506.0400, L5500.0550, L5530.0479, L5530.0169 ####[facility] [address] [place], [address] COMMENT Comment Normal . [facility] Comment on above: Result Comment: Maegan sprague [...] L5530.0569, L5530.1479, L5530.1319, L506.0400, L5500.0550, L5530.0479, L5530.0169 ####[facility] [address] [place], [place], [phone] CORN <0.10 Normal Class 0 [facility] Comment on above: Performed By: #### L 101.9900, L5530.0009, L5530.0399, L5530.1389, L5530.1169, L501.6710, L501.9520, L5530.1649, L3410.2400, L5530.1669, L5530.1399, L500.3400, L5530.0569, L5530.1479, L5530.1319, L506.0400, L5500.0550, L5530.0479, L5530.0169 ####[facility] [address] [place], [place], [phone](957) EGG, WHOLE <0.10 Normal Class 0 [facility] Comment on above: Performed By: #### L 101.9900, L5530.0009, L5530.0399, L5530.1389, L5530.1169, L501.6710, L501.9520, L5530.1649, L3410.2400, L5530.1669, L5530.1399, L500.3400, L5530.0569, L5530.1479, L5530.1319, L506.0400, L5500.0550, L5530.0479, L5530.0169 ####[facility] [address] [place], [place], [phone] MILK (COW) <0.10 Normal Class 0 [facility] Comment on above: Performed By: #### L 101.9900, L5530.0009, L5530.0399, L5530.1389, L5530.1169, L501.6710, L501.9520, L5530.1649, L3410.2400, L5530.1669, L5530.1399, L500.3400, L5530.0569, L5530.1479, L5530.1319, L506.0400, L5500.0550, L5530.0479, L5530.0169 ####[facility] [address] [place], [place], [phone](807) MUSSELS <0.10 Normal Class 0 [facility] Comment on above: Performed By: #### L 101.9900, L5530.0009, L5530.0399, L5530.1389, L5530.1169, L501.6710, L501.9520, L5530.1649, L3410.2400, L5530.1669, L5530.1399, L500.3400, L5530.0569, L5530.1479, L5530.1319, L506.0400, L5500.0550, L5530.0479, L5530.0169 ####[facility] [address] [place], [place], [phone] PEANUT <0.10 Normal Class 0 [facility] Comment on above: Performed By: #### L 101.9900, L5530.0009, L5530.0399, L5530.1389, L5530.1169, L501.6710, L501.9520, L5530.1649, L3410.2400, L5530.1669, L5530.1399, L500.3400, L5530.0569, L5530.1479, L5530.1319, L506.0400, L5500.0550, L5530.0479, L5530.0169 ####[facility] [address] [place], [place], [phone] PORK <0.10 Normal Class 0 [facility] Comment on above: Performed By: #### L 101.9900, L5530.0009, L5530.0399, L5530.1389, L5530.1169, L501.6710, L501.9520, L5530.1649, L3410.2400, L5530.1669, L5530.1399, L500.3400, L5530.0569, L5530.1479, L5530.1319, L506.0400, L5500.0550, L5530.0479, L5530.0169 ####[facility] [address] [place], [place], [phone] SALMON <0.10 Normal Class 0 [facility] Comment on above: Performed By: #### L 101.9900, L5530.0009, L5530.0399, L5530.1389, L5530.1169, L501.6710, L501.9520, L5530.1649, L3410.2400, L5530.1669, L5530.1399, L500.3400, L5530.0569, L5530.1479, L5530.1319, L506.0400, L5500.0550, L5530.0479, L5530.0169 ####[facility] [address] [place], [address] SHRIMP <0.10 Normal Class 0 [facility] Comment on above: Performed By: #### L 101.9900, L5530.0009, L5530.0399, L5530.1389, L5530.1169, L501.6710, L501.9520, L5530.1649, L3410.2400, L5530.1669, L5530.1399, L500.3400, L5530.0569, L5530.1479, L5530.1319, L506.0400, L5500.0550, L5530.0479, L5530.0169 ####[facility] [address] [place], [place], [phone] SOYBEAN <0.10 Normal Class 0 [facility] Comment on above: Performed By: #### L 101.9900, L5530.0009, L5530.0399, L5530.1389, L5530.1169, L501.6710, L501.9520, L5530.1649, L3410.2400, L5530.1669, L5530.1399, L500.3400, L5530.0569, L5530.1479, L5530.1319, L506.0400, L5500.0550, L5530.0479, L5530.0169 ####[facility] [address] [place], [address] TUNA <0.10 Normal Class 0 [facility] Comment on above: Performed By: #### L 101.9900, L5530.0009, L5530.0399, L5530.1389, L5530.1169, L501.6710, L501.9520, L5530.1649, L3410.2400, L5530.1669, L5530.1399, L500.3400, L5530.0569, L5530.1479, L5530.1319, L506.0400, L5500.0550, L5530.0479, L5530.0169 ####[facility] [address] [place], [place], [address] WHEAT <0.10 Normal Class 0 [facility] Comment on above: Performed By: #### L 101.9900, L5530.0009, L5530.0399, L5530.1389, L5530.1169, L501.6710, L501.9520, L5530.1649, L3410.2400, L5530.1669, L5530.1399, L500.3400, L5530.0569, L5530.1479, L5530.1319, L506.0400, L5500.0550, L5530.0479, L5530.0169 ####[facility] [address] [place], [place], [phone] Riceon 11-05-2024 RICE <0.10 Normal Class 0 [facility] Comment on above: Performed By: #### L 101.9900, L5530.0009, L5530.0399, L5530.1389, L5530.1169, L501.6710, L501.9520, L5530.1649, L3410.2400, L5530.1669, L5530.1399, L500.3400, L5530.0569, L5530.1479, L5530.1319, L506.0400, L5500.0550, L5530.0479, L5530.0169 ####[facility] [address] [place], [place], [address] Ryeon 11-05-2024 RYE <0.10 Normal Class 0 [facility] Comment on above: Performed By: #### L 101.9900, L5530.0009, L5530.0399, L5530.1389, L5530.1169, L501.6710, L501.9520, L5530.1649, L3410.2400, L5530.1669, L5530.1399, L500.3400, L5530.0569, L5530.1479, L5530.1319, L506.0400, L5500.0550, L5530.0479, L5530.0169 ####[facility] [address] [place], [place], [phone] [place], (Food)on 11-05-2024 WALNUT,(Food) <0.10 Normal Class 0 [facility] Comment on above: Result Comment: Perf ormed at: [facility] [id number] News Assignment Editor: Ralph Peterson MD, Phone: [phone] Performed By: #### L 101.9900, L5530.0009, L5530.0399, L5530.1389, L5530.1169, L501.6710, L501.9520, L5530.1649, L3410.2400, L5530.1669, L5530.1399, L500.3400, L5530.0569, L5530.1479, L5530.1319, L506.0400, L5500.0550, L5530.0479, L5530.0169 ####[facility] [address] [place], [place], [id number] Celiac Disease Profileon ENDOMYSIAL IGA Negative Normal Negative [facility] Comment on above: Performed By: #### L 101.9900, L5530.0009, L5530.0399, L5530.1389, L5530.1169, L501.6710, L501.9520, L5530.1649, L3410.2400, L5530.1669, L5530.1399, L500.3400, L5530.0569, L5530.1479, L5530.1319, L506.0400, L5500.0550, L5530.0479, L5530.0169 ####[facility] [address] [place], [address] IMMUNOGLOB A QN 311 mg/dL Normal 90-386 [facility] Comment on above: Result Comment: Perf ormed at: [facility] [address] [id number] News Assignment Editor: Julian Meza PhD, Phone: [phone] Performed By: #### L 101.9900, L5530.0009, L5530.0399, L5530.1389, L5530.1169, L501.6710, L501.9520, L5530.1649, L3410.2400, L5530.1669, L5530.1399, L500.3400, L5530.0569, L5530.1479, L5530.1319, L506.0400, L5500.0550, L5530.0479, L5530.0169 ####[facility] [address] [place] [place], [address] tTG IGA <2 Normal 0-3 [facility] Comment on above: Result Comment: Nega tive [...] L5530.0569, L5530.1479, L5530.1319, L506.0400, L5500.0550, L5530.0479, L5530.0169 ####[facility] [address] [place], [place], [phone] Bilirubin directOrdered By: Vi Moncada on 10-29-2024 Bilirubin.direct [Mass/Vol] 0.15 mg/dL 0.00-0.30 [facility] Bilirubin, totalOrdered By: Vi Moncada on 10-29-2024 Bilirubin [Mass/Vol] 0.39 mg/dL 0.00-1.30 [facility] CRPon 10-29-2024 C-REACTIVE PROT < 3.00 Normal 0.0-3.0 [facility] Comment on above: Order Comment: PAULA NT WAS GIVEN STOOL KIT TO BE RETURNED Performed By: #### L 101.9900, L5530.0009, L5530.0399, L5530.1389, L5530.1169, L501.6710, L501.9520, L5530.1649, L3410.2400, L5530.1669, L5530.1399, L500.3400, L5530.0569, L5530.1479, L5530.1319, L506.0400, L5500.0550, L5530.0479, L5530.0169 ####[facility] [address] [place], [place], [phone] CRP [Mass/Vol]Ordered By: Ra vale Moncada on 10-29-2024 C-Reactive Protein Extended Range < 3.00 mg/L 0.0-3.0 [facility] Endomysial IgA antibody assa yOrdered By: Vi Moncada on 10-29-2024 Endomysial IgA Antibody Negative Negative [facility] Erythrocyte Sed Rateon 10-29 SED RATE 4 mm/hr Normal 0-20 [facility] Comment on above: Performed By: #### L 101.9900, L5530.0009, L5530.0399, L5530.1389, L5530.1169, L501.6710, L501.9520, L5530.1649, L3410.2400, L5530.1669, L5530.1399, L500.3400, L5530.0569, L5530.1479, L5530.1319, L506.0400, L5500.0550, L5530.0479, L5530.0169 ####[facility] [address] [place], [address] Erythrocyte sedimentation ra teOrdered By: Vi Moncada on 10-29-2024 ESR (Bld) [Velocity] 4 mm/h 0-20 [facility] IgA [Mass/Vol]Ordered By: Ra vale Moncada on 10-29-2024 Immunoglobulin A 311 mg/dL 90-386 [facility] Comment on above: Performed at: [address] [id number] Director: Julian Meza PhD, Phone: [phone] Laboratory - Chemistry and C hemistry - challengeOrdered By: Vi Moncada on 10-29-2024 AST [Catalytic activity/Vol] 33 U/L <38 [facility] Laboratory - Miscellaneous t estsOrdered By: Vi Moncada on 10-29-2024 Service comment (Unsp spec) [Interp] Comment . [facility] Comment on above: Levels of Specific I gE Class Description of Class ----- < 0.10 0 Negative 0.10 - 0.31 0/I Equivocal/Low 0.32 - 0.55 I Low 0.56 - 1.40 II Moderate 1.41 - 3.90 III High 3.91 - 19.00 IV Very High 19.01 - 100.00 V Very High >100.00 Very High Liver Profileon 10-29-2024 Albumin [Mass/Vol] 4.3 g/dL Normal 3.5-5.0 [facility] Comment on above: Order Comment: PAULA NT WAS GIVEN STOOL KIT TO BE RETURNED Performed By: #### L 101.9900, L5530.0009, L5530.0399, L5530.1389, L5530.1169, L501.6710, L501.9520, L5530.1649, L3410.2400, L5530.1669, L5530.1399, L500.3400, L5530.0569, L5530.1479, L5530.1319, L506.0400, L5500.0550, L5530.0479, L5530.0169 ####[facility] [address] [facility]. [place], [place], [id number] ALK PHOS 77 U/L Normal 40-129 [facility] Comment on above: Order Comment: PAULA NT WAS GIVEN STOOL KIT TO BE RETURNED Performed By: #### L 101.9900, L5530.0009, L5530.0399, L5530.1389, L5530.1169, L501.6710, L501.9520, L5530.1649, L3410.2400, L5530.1669, L5530.1399, L500.3400, L5530.0569, L5530.1479, L5530.1319, L506.0400, L5500.0550, L5530.0479, L5530.0169 ####[facility] [address] [facility]. [place], [place], [phone] ALT [Catalytic activity/Vol] 50 U/L High <=46 [facility] Comment on above: Order Comment: PAULA NT WAS GIVEN STOOL KIT TO BE RETURNED Performed By: #### L 101.9900, L5530.0009, L5530.0399, L5530.1389, L5530.1169, L501.6710, L501.9520, L5530.1649, L3410.2400, L5530.1669, L5530.1399, L500.3400, L5530.0569, L5530.1479, L5530.1319, L506.0400, L5500.0550, L5530.0479, L5530.0169 ####[facility] [address] [facility] [place], [place], [phone] AST [Catalytic activity/Vol] 33 U/L Normal <=37 [facility] Comment on above: Order Comment: PAULA NT WAS GIVEN STOOL KIT TO BE RETURNED Performed By: #### L 101.9900, L5530.0009, L5530.0399, L5530.1389, L5530.1169, L501.6710, L501.9520, L5530.1649, L3410.2400, L5530.1669, L5530.1399, L500.3400, L5530.0569, L5530.1479, L5530.1319, L506.0400, L5500.0550, L5530.0479, L5530.0169 ####[facility] [address] [facility] [place], [address] Bilirubin [Mass/Vol] 0.39 mg/dL Normal 0.00-1.30 [facility] Comment on above: Order Comment: PAULA NT WAS GIVEN STOOL KIT TO BE RETURNED Performed By: #### L 101.9900, L5530.0009, L5530.0399, L5530.1389, L5530.1169, L501.6710, L501.9520, L5530.1649, L3410.2400, L5530.1669, L5530.1399, L500.3400, L5530.0569, L5530.1479, L5530.1319, L506.0400, L5500.0550, L5530.0479, L5530.0169 ####[facility] [address] [facility]. [place], [place], [id number] Bilirubin.direct [Mass/Vol] 0.15 mg/dL Normal 0.00-0.30 [facility] Comment on above: Order Comment: PAULA NT WAS GIVEN STOOL KIT TO BE RETURNED Performed By: #### L 101.9900, L5530.0009, L5530.0399, L5530.1389, L5530.1169, L501.6710, L501.9520, L5530.1649, L3410.2400, L5530.1669, L5530.1399, L500.3400, L5530.0569, L5530.1479, L5530.1319, L506.0400, L5500.0550, L5530.0479, L5530.0169 ####[facility] [address] [place], [place], [phone](484) Globulin (S) [Mass/Vol] 2.6 g/dL Normal 2.2-4.2 [facility] Comment on above: Order Comment: PATIKira NT WAS GIVEN STOOL KIT TO BE RETURNED Performed By: #### L 101.9900, L5530.0009, L5530.0399, L5530.1389, L5530.1169, L501.6710, L501.9520, L5530.1649, L3410.2400, L5530.1669, L5530.1399, L500.3400, L5530.0569, L5530.1479, L5530.1319, L506.0400, L5500.0550, L5530.0479, L5530.0169 ####[facility] [address] [place], [place], [phone](586) T PROT 6.9 g/dL Normal 5.9-8.4 [facility] Comment on above: Order Comment: PAULA NT WAS GIVEN STOOL KIT TO BE RETURNED Performed By: #### L 101.9900, L5530.0009, L5530.0399, L5530.1389, L5530.1169, L501.6710, L501.9520, L5530.1649, L3410.2400, L5530.1669, L5530.1399, L500.3400, L5530.0569, L5530.1479, L5530.1319, L506.0400, L5500.0550, L5530.0479, L5530.0169 ####[facility] [address] [place], [place], [phone](487) Serum Glycine max IgE antibo dy assay (units/volume)Ordered By: Vi Moncada on 10-29-2024 Soybean [facility] Qn (S) [facility] Test not performed Serum almond IgE antibody as say (units/volume)Ordered By: Vi Moncada on 10-29-2024 [place] IgE Qn (S) <0.10 kU/L Class 0 [facility] Serum beef IgE antibody assa y (units/volume)Ordered By: Vi Moncada on 10-29-2024 Beef IgE Qn (S) <0.10 kU/L Class 0 [facility] Beef [facility] Qn (S) [facility] on [facility] Test not performed Serum black walnut IgE antib georgi assay (units/volume)Ordered By: Vi Moncada on 10-29-2024 Black [place] IgE Qn (S) <0.10 kU/L Class [address] [facility] Comment on above: Performed at: [address] [id number] Director: Ralph Peterson MD, Phone: [phone] Serum chicken IgE antibody a ssay (units/volume)Ordered By: Vi Moncada on 10-29-2024 Chicken IgE Qn (S) <0.10 kU/L Class 0 [facility] Serum codfish IgE antibody a ssay (units/volume)Ordered By: Vi Moncada on 10-29-2024 Codfish IgE Qn (S) <0.10 kU/L Class 0 [facility] Serum corn IgE antibody assa y (units/volume)Ordered By: Vi Moncada on 10-29-2024 [place] IgE Qn (S) <0.10 kU/L Class 0 [facility] Serum cow milk IgE antibody assay (units/volume)Ordered By: Vi Moncada on 10-29-2024 Cow milk IgE Qn (S) <0.10 kU/L Class 0 [facility] Serum egg white IgE antibody assay (units/volume)Ordered By: Vi Moncada on 10-29-2024 Egg white IgE Qn (S) <0.10 kU/L Class 0 [facility] Serum globulin measurementOr dered By: Vi Moncada on 10-29-2024 Globulin (S) [Mass/Vol] 2.6 g/dL 2.2-4.2 [facility] Serum or plasma C reactive p rotein measurement (mass/volume)Ordered By: Vi oMncada on 10-29-2024 CRP [Mass/Vol] mg/L 0.0-3.0 [facility] Serum or plasma IgA measurem ent (mass/volume)Ordered By: Vi Moncada on 10-29-2024 IgA [Mass/Vol] 311 mg/dL 90-386 [facility] Comment on above: Performed at: [address] [id number] Director: Julian Meza PhD, Phone: [phone] Serum or plasma alanine goyal otransferase (ALT) measurementOrdered By: Vi Moncada on 10-29-2024 ALT [Catalytic activity/Vol] 50 U/L High <47 [facility] Serum or plasma albumin tico urement (mass/volume)Ordered By: Vi Moncada on 10-29-2024 Albumin [Mass/Vol] 4.3 g/dL 3.5-5.0 [facility] Serum or plasma alkaline felipe sphatase measurementOrdered By: Vi Moncada on 10-29-2024 ALP [Catalytic activity/Vol] 77 U/L 40-129 [facility] Serum peanut IgE antibody as say (units/volume)Ordered By: Vi Moncada on 10-29-2024 Peanut IgE Qn (S) <0.10 kU/L Class 0 [facility] Serum pork IgE antibody assa y (units/volume)Ordered By: Vi Moncada on 10-29-2024 Pork IgE Qn (S) <0.10 kU/L Class 0 [facility] Serum rice IgE antibody assa y (units/volume)Ordered By: Vi Moncada on 10-29-2024 Rice IgE Qn (S) <0.10 kU/L Class 0 [facility] Serum rye IgE antibody assay (units/volume)Ordered By: Vi Moncada on 10-29-2024 [place] IgE Qn (S) <0.10 kU/L Class 0 [facility] Serum salmon IgE antibody as say (units/volume)Ordered By: Vi Moncada on 10-29-2024 [place] IgE Qn (S) <0.10 kU/L Class 0 [facility] Serum soybean IgE antibody a ssay (units/volume)Ordered By: Vicornelia Moncada on 10-29-2024 Soybean IgE Qn (S) <0.10 kU/L Class 0 [facility] Serum tissue transglutaminas e (tTG) IgA antibody assay (units/volume)Ordered By: Vicornelia Moncada on 10-29-2024 tTG IgA Qn (S) <2 U/mL 0-3 [facility] Comment on above: Negative 0 - 3 Weak Positive 4 - 10 Positive >10 Tissue Transglutaminase (tTG) has been identified as the endomysial antigen. Studies have demonstr- ated that endomysial IgA antibodies have over 99% specificity for gluten sensitive enteropathy. Serum tuna IgE antibody assa y (units/volume)Ordered By: Linden Antwan on 10-29-2024 Tuna IgE Qn (S) <0.10 kU/L Class 0 [facility] Serum wheat IgE antibody ass ay (units/volume)Ordered By: Vi Antwan on 10-29-2024 Wheat IgE Qn (S) <0.10 kU/L Class 0 [facility] Serum whole egg IgE antibody assay (units/volume)Ordered By: Counts Include [facility] 10[facility]-2024 Whole Egg IgE Qn (S) <0.10 kU/L Class 0 [facility] T4 Free Directon 10-29-2024 T4 FREE DIRECT 1.20 ng/dL Normal 0.76-1.46 [facility] Comment on above: Order Comment: PAULA NT WAS GIVEN STOOL KIT TO BE RETURNED Performed By: #### L 101.9900, L5530.0009, L5530.0399, L5530.1389, L5530.1169, L501.6710, L501.9520, L5530.1649, L3410.2400, L5530.1669, L5530.1399, L500.3400, L5530.0569, L5530.1479, L5530.1319, L506.0400, L5500.0550, L5530.0479, L5530.0169 ####[facility] [address] [place], [place], [address] T4 freeOrdered By: Vi bella on 10-29-2024 Free T4 [Mass/Vol] 1.20 ng/dL 0.76-1.46 [facility] TSH DL <= 0.005 mIU/L QnOrde red By: Vi Moncada on 10-29-2024 Thyroid Stimulating Hormone (TSH) 1.640 uIU/mL 0.300-4.200 [facility] TSH Qn 1.640 uIU/mL 0.300-4.200 [facility] Thyroid Stim Hormone (TSH)on 10-29-2024 TSH 1.640 uIU/mL Normal 0.300-4.200 [facility] Comment on above: Order Comment: PAULA HERRMANN WAS GIVEN STOOL KIT TO BE RETURNED Performed By: #### L 101.9900, L5530.0009, L5530.0399, L5530.1389, L5530.1169, L501.6710, L501.9520, L5530.1649, L3410.2400, L5530.1669, L5530.1399, L500.3400, L5530.0569, L5530.1479, L5530.1319, L506.0400, L5500.0550, L5530.0479, L5530.0169 ####[facility] [address] [place], [place], [phone] Total proteinOrdered By: Rachael Moncada on 10-29-2024 Protein [Mass/Vol] 6.9 g/dL 5.9-8.4 [facility] tTG IgA Qn (S)Ordered By: Ra vale Moncada on 10-29-2024 Tissue Transglutaminase IgA Ab <2 U/mL 0-3 [facility] Comment on above: Negative 0 - 3 Weak Positive 4 - 10 Positive >10 Tissue Transglutaminase (tTG) has been identified as the endomysial antigen. Studies have demonstr- ated that endomysial IgA antibodies have over 99% specificity for gluten sensitive enteropathy. [id number] DOrdered By: Godwin Velasquez on 08-31-2024 Vitamin D 25-Hydroxy 6.7 ng/mL [facility] Comment on above: Vitamin D 25(OH) Sta tus Range Deficiency <20 ng/mL (50nmol/L) Insufficiency 20 - 30 ng/mL (50 - 75 nmol/L) Sufficiency 30 - 100 ng/mL (75 - 250 nmol/L) Toxicity >100 ng/mL (>250 nmol/L) Absolute lymphocyte countOrd ered By: Fransico Velasquez on 08-31-2024 Lymphocytes Auto (Unsp spec) [#/Vol] 1.83 10*3/uL 0.83-4.51 [facility] Absolute neutrophil countOrd ered By: Fransico Velasquez on 08-31-2024 Neutrophils (Bld) [#/Vol] 4.0 10*3/uL 2.0-7.7 [facility] Albumin to globulin ratioOrd ered By: Fransico Velasquez on 08-31-2024 Albumin/Globulin [Mass ratio] 1.0 {ratio} 0.9-2.4 [facility] Automated lymphocyte count a s percentage of total leukocytesOrdered By: Fransico Velasquez on 08-31-2024 Lymphocytes/100 WBC Auto (Unsp spec) 26.3 % 19-41 [facility] Basophil percentageOrdered B y: Fransico Velasquez on 08-31-2024 Basophils/100 WBC (Bld) 0.9 % 0-1 [facility] Bilirubin, totalOrdered By: Fransico Velasquez on 08-31-2024 Bilirubin [Mass/Vol] 0.60 mg/dL 0.20-1.00 [facility] Comment on above: For patients on eltr ombopag therapy, use of Dimension [place] TBIL is not recommended. Blood urea nitrogen (BUN)/cr eatinine ratioOrdered By: Fransico Velasquez on 08-31-2024 Urea nitrogen/Creatinine [Mass ratio] 10.8 mg/mg 10-20 [facility] CBC W/Diff, Automatedon 08-18 Absolute Lymph 1.83 X10 3/uL Normal 0.83-4.51 [facility] Comment on above: Performed By: #### L 500.4050, L100.0100, L506.1000, L500.4100 #### [facility] [address] [place], [address] Absolute Neut 4.0 X10 3/uL Normal 2.0-7.7 [facility] Comment on above: Performed By: #### L 500.4050, L100.0100, L506.1000, L500.4100 #### [facility] [address] [place], [address] Basophils/100 WBC (Bld) 0.9 % Normal 0-1 [facility] Comment on above: Performed By: #### L 500.4050, L100.0100, L506.1000, L500.4100 #### [facility] [address] [place], [address] Eosinophils/100 WBC (Bld) 2.4 % Normal 0-5 [facility] Comment on above: Performed By: #### L 500.4050, L100.0100, L506.1000, L500.4100 #### [facility] [address] [place], [address] Erythrocyte distribution width (RBC) [Ratio] 13.3 % Normal 11.6-14.6 [facility] Comment on above: Performed By: #### L 500.4050, L100.0100, L506.1000, L500.4100 #### [facility] [address] [place], [address] Hematocrit (Bld) [Volume fraction] 51.9 % Normal 40-54 [facility] Comment on above: Performed By: #### L 500.4050, L100.0100, L506.1000, L500.4100 #### [facility] [address] [place], [address] Hemoglobin (Bld) [Mass/Vol] 17.2 g/dL High 13.0-16.5 [facility] Comment on above: Performed By: #### L 500.4050, L100.0100, L506.1000, L500.4100 #### [facility] [address] [place], [address] IG% 0.600 Normal 0.0-0.9 [facility] Comment on above: Result Comment: IG% - Immature Granulocytes (promyelocytes, myelocytes and metamyelocytes) > 1% indicates that a LEFT SHIFT is Present. Performed By: #### L 500.4050, L100.0100, L506.1000, L500.4100 #### [facility] [address] [place], [address] Lymphocytes/100 WBC (Bld) 26.3 % Normal 19-41 [facility] Comment on above: Performed By: #### L 500.4050, L100.0100, L506.1000, L500.4100 #### [facility] [address] [place], [address] MCH (RBC) [Entitic mass] 29.6 pg Normal 27.0-32.0 [facility] Comment on above: Performed By: #### L 500.4050, L100.0100, L506.1000, L500.4100 #### [facility] [address] [place], [address] MCHC (RBC) [Mass/Vol] 33.1 g/dL Normal 32-36 [facility] [facility] Comment on above: Performed By: #### L 500.4050, L100.0100, L506.1000, L500.4100 #### [facility] [address] [place], [address] MCV (RBC) [Entitic vol] 89.2 fL Normal 80-94 [facility] Comment on above: Performed By: #### L 500.4050, L100.0100, L506.1000, L500.4100 #### [facility] [address] [place], [address] Monocytes/100 WBC (Bld) 11.8 % High 0-10 [facility] Comment on above: Performed By: #### L 500.4050, L100.0100, L506.1000, L500.4100 #### [facility] [address] [place], [address] Neutrophils/100 WBC (Bld) 58.0 % Normal 47-70 [facility] Comment on above: Performed By: #### L 500.4050, L100.0100, L506.1000, L500.4100 #### [facility] [address] [place], [address] Nucleated RBC (Bld) [#/Vol] 0 10*3/uL Normal 0-5 [facility] Comment on above: Performed By: #### L 500.4050, L100.0100, L506.1000, L500.4100 #### [facility] [address] [place], [address] Platelet mean volume (Bld) [Entitic vol] 9.5 fL Normal 6.2-12.0 [facility] Comment on above: Performed By: #### L 500.4050, L100.0100, L506.1000, L500.4100 #### [facility] [address] [place], [address] Platelets (Bld) [#/Vol] 212 10*3/uL Normal 150-450 [facility] Comment on above: Performed By: #### L 500.4050, L100.0100, L506.1000, L500.4100 #### [facility] [address] [place], [address] RBC (Bld) [#/Vol] 5.82 10*6/uL Normal 4.6-6.2 [facility] Comment on above: Performed By: #### L 500.4050, L100.0100, L506.1000, L500.4100 #### [facility] [address] [place], [address] RDW SD 43.5 fl Normal 35.1-43.9 [facility] Comment on above: Performed By: #### L 500.4050, L100.0100, L506.1000, L500.4100 #### [facility] [address] [place], [address] WBC (Bld) [#/Vol] 7.0 10*3/uL Normal 4.4-11.0 [facility] Comment on above: Performed By: #### L 500.4050, L100.0100, L506.1000, L500.4100 #### [facility] [address] [place], [address] Carbon dioxide measurementOr dered By: Fransico Velasquez on 08-31-2024 CO2 [Moles/Vol] 28.0 mmol/L 21.0-32.0 [facility] Chloride measurementOrdered By: Fransico Velasquez on 08-31-2024 Chloride [Moles/Vol] 106 mmol/L 98-107 [facility] Comprehensive Metabolic Prof ilon 08-31-2024 Albumin [Mass/Vol] 3.7 g/dL Normal 3.2-5.0 [facility] Comment on above: Performed By: #### L 500.4050, L100.0100, L506.1000, L500.4100 #### [facility] [address] [place], [address] Albumin/Globulin [Mass ratio] 1.0 {ratio} Normal 0.9-2.4 [facility] Comment on above: Performed By: #### L 500.4050, L100.0100, L506.1000, L500.4100 #### [facility] [address] [place], [address] ALK P 73 U/L Normal 45-117 [facility] Comment on above: Performed By: #### L 500.4050, L100.0100, L506.1000, L500.4100 #### [facility] [address] [place], [address] ALT [Catalytic activity/Vol] 72 U/L High 16-61 [facility] Comment on above: Performed By: #### L 500.4050, L100.0100, L506.1000, L500.4100 #### [facility] [address] [place], [address] AST [Catalytic activity/Vol] 45 U/L High 15-37 [facility] Comment on above: Performed By: #### L 500.4050, L100.0100, L506.1000, L500.4100 #### [facility] [address] [place], [address] Bilirubin [Mass/Vol] 0.60 mg/dL Normal 0.20-1.00 [facility] Comment on above: Result Comment: For patients on eltrombopag therapy, use of Dimension [place] TBIL is not recommended. Performed By: #### L 500.4050, L100.0100, L506.1000, L500.4100 #### [facility] [address] [place], [address] BUN/CRE 10.8 RATIO Normal 10-20 [facility] Comment on above: Performed By: #### L 500.4050, L100.0100, L506.1000, L500.4100 #### [facility] [address] [place], [address] CA,Total 9.0 mg/dL Normal 8.5-10.1 [facility] Comment on above: Performed By: #### L 500.4050, L100.0100, L506.1000, L500.4100 #### [facility] [address] [place], [address] Chloride [Moles/Vol] 106 mmol/L Normal 98-107 [facility] Comment on above: Performed By: #### L 500.4050, L100.0100, L506.1000, L500.4100 #### [facility] [address] [place], [address] CO2 [Moles/Vol] 28.0 mmol/L Normal 21.0-32.0 [facility] Comment on above: Performed By: #### L 500.4050, L100.0100, L506.1000, L500.4100 #### [facility] [address] [place], [address] Creatinine [Mass/Vol] 0.92 mg/dL Normal 0.70-1.30 [facility] Comment on above: Result Comment: The validity of the calculated GFR GFRAA in patients over 70 years has not been determined. Clinical correlation is essential. Performed By: #### L 500.4050, L100.0100, L506.1000, L500.4100 #### [facility] [address] [place], [address] EST GFR - AA 121 mL/min Normal >60 [facility] Comment on above: Result Comment: Afri can Bahamian GFR Calc Performed By: #### L 500.4050, L100.0100, L506.1000, L500.4100 #### [facility] [address] [place], [address] GAP 6 Normal 5-15 [facility] Comment on above: Performed By: #### L 500.4050, L100.0100, L506.1000, L500.4100 #### [facility] [address] [place], [address] GFR/1.73 sq M.predicted among non-blacks MDRD (S/P/Bld) [Vol rate/Area] 100 mL/min/{1.73_m2} Normal >60 [facility] Comment on above: Result Comment: Non- GFR Calc Performed By: #### L 500.4050, L100.0100, L506.1000, L500.4100 #### [facility] [address] [place], [address] Globulin (S) [Mass/Vol] 3.6 g/dL Normal 2.2-4.2 [facility] Comment on above: Performed By: #### L 500.4050, L100.0100, L506.1000, L500.4100 #### [facility] [address] [place], [address] Glucose [Mass/Vol] 95 mg/dL Normal 74-106 [facility] Comment on above: Performed By: #### L 500.4050, L100.0100, L506.1000, L500.4100 #### [facility] [address] [place], [address] Potassium [Moles/Vol] 3.8 mmol/L Normal 3.5-5.1 [facility] Comment on above: Performed By: #### L 500.4050, L100.0100, L506.1000, L500.4100 #### [facility] [address] [place], [address] Sodium [Moles/Vol] 140 mmol/L Normal 136-145 [facility] Comment on above: Performed By: #### L 500.4050, L100.0100, L506.1000, L500.4100 #### [facility] [address] [place], [address] T PROT 7.3 g/dL Normal 6.4-8.2 [facility] Comment on above: Performed By: #### L 500.4050, L100.0100, L506.1000, L500.4100 #### [facility] [address] [place], [address] Urea nitrogen [Mass/Vol] 10 mg/dL Normal 7-18 [facility] Comment on above: Performed By: #### L 500.4050, L100.0100, L506.1000, L500.4100 #### [facility] [address] [place], [address] Eosinophil percentageOrdered By: Fransico Velasquez on 08-31-2024 Eosinophils/100 WBC (Bld) 2.4 % 0-5 [facility] Erythrocyte distribution wid th (RBC) [Ratio]Ordered By: Fransico Velasquez on 08-31-2024 Erythrocyte distribution width (RBC) [Entitic vol] 43.5 fL 35.1-43.9 [facility] Erythrocyte distribution wid th ratioOrdered By: Fransico Velasquez on 08-31-2024 Erythrocyte distribution width (RBC) [Ratio] 13.3 % 11.6-14.6 [facility] Erythrocyte distribution wid th standard deviationOrdered By: Fransico Velasquez on 08-31-2024 Erythrocyte distribution width (RBC) [Ratio] 43.5 fl 35.1-43.9 [facility] Estimated glomerular filtrat ion rate (GFR) AmericanOrdered By: Fransico Velasquez on 08-31-2024 Estimated GFR (MDRD) Amer 121 mL/min >60 [facility] Comment on above: GFR Calc Glomerular filtration rate ( GFR) estimationOrdered By: Farnsico Velasquez on 08-31-2024 Estimated GFR (MDRD) Non-Af Amer 100 mL/min >60 [facility] Comment on above: Non- GFR Calc GFR/1.73 sq M.predicted among non-blacks MDRD (S/P/Bld) [Vol rate/Area] 100 mL/min/{1.73_m2} >60 [facility] Comment on above: Non- GFR Calc Glucose measurementOrdered B y: Fransico Velasquez on 08-31-2024 Glucose [Mass/Vol] 95 mg/dL 74-106 [facility] Hematocrit Auto (Bld) [Volum e fraction]Ordered By: Fransico Velasquez on 08-31-2024 Hematocrit (Bld) [Volume fraction] 51.9 % 40-54 [facility] Hemoglobin measurementOrdere d By: Fransico Velasquez on 08-31-2024 Hemoglobin (Bld) [Mass/Vol] 17.2 g/dL High 13.0-16.5 [facility] High density lipoprotein (HD L) measurementOrdered By: Fransico Velasquez on 08-31-2024 Cholesterol in HDL [Mass/Vol] 40 mg/dL >40 [facility] Comment on above: The drugs N-Acetylcy steine and Metamizole may falsely depress this assay. Reference Range HDL <40 mg/dL Low HDL Cholesterol HDL >or= 60 mg/dL High HDL Cholesterol Immature granulocytes/100 WB C Auto (Bld)Ordered By: Fransico Velasquez on 08-31-2024 Immature granulocytes/100 WBC (Bld) 0.600 % 0.0-0.9 [facility] Comment on above: IG% - Immature Granu locytes (promyelocytes, myelocytes and metamyelocytes) > 1% indicates that a LEFT SHIFT is Present. Laboratory - Chemistry and C hemistry - challengeOrdered By: Fransico Velasquez on 08-31-2024 AST [Catalytic activity/Vol] 45 U/L High 15-37 [facility] Lipid Profileon 08-31-2024 Cholesterol [Mass/Vol] 198 mg/dL Normal 200 [facility] Comment on above: Result Comment: <200 mg/dL Desirable 200-240 mg/dL Borderline >240 mg/dL High Risk Performed By: #### L 500.4050, L100.0100, L506.1000, L500.4100 #### [facility] [address] [place], [address] Cholesterol in HDL [Mass/Vol] 40 mg/dL Normal [facility] Comment on above: Result Comment: The drugs N-Acetylcysteine and Metamizole may falsely depress this assay. Reference Range HDL <40 mg/dL Low HDL Cholesterol HDL >or= 60 mg/dL High HDL Cholesterol Performed By: #### L 500.4050, L100.0100, L506.1000, L500.4100 #### [facility] [address] [place], [address] Cholesterol in LDL [Mass/Vol] 121 mg/dL Normal 0-130 [facility] Comment on above: Performed By: #### L 500.4050, L100.0100, L506.1000, L500.4100 #### [facility] [address] [place], [address] Cholesterol in VLDL [Mass/Vol] 37 mg/dL Normal 5-40 [facility] Comment on above: Performed By: #### L 500.4050, L100.0100, L506.1000, L500.4100 #### [facility] [address] [place], [address] Triglyceride [Mass/Vol] 183 mg/dL Normal [facility] Comment on above: Result Comment: The drugs N-Acetylcysteine and Metamizole may falsely depress this assay. Serum Triglycerides Reference Interval Normal <150 mg/dL Borderline high 150 - 199 mg/dL High 200 - 499 mg/dL Very High > or = 500 mg/dL Performed By: #### L 500.4050, L100.0100, L506.1000, L500.4100 #### [facility] [address] [place], [address] Low density lipoprotein (LDL ) cholesterol measurementOrdered By: Fransico Velasquez on 08-31-2024 Cholesterol in LDL [Mass/Vol] 121 mg/dL 0-130 [facility] Lymphocytes Auto (Unsp spec) [#/Vol]Ordered By: Fransico Velasquez on 08-31-2024 Lymphocytes (Bld) [#/Vol] 1.83 10*3/uL 0.83-4.51 [facility] Lymphocytes/100 WBC Auto (Un sp spec)Ordered By: Fransico Velasquez on 08-31-2024 Lymphocytes/100 WBC (Bld) 26.3 % 19-41 [facility] MCV (mean corpuscular volume ) determinationOrdered By: Fransico Velasquez on 08-31-2024 MCV (RBC) [Entitic vol] 89.2 fL 80-94 [facility] Mean corpuscular hemoglobin (MCH) determinationOrdered By: Fransico Velasquez on 08-31-2024 MCH (RBC) [Entitic mass] 29.6 pg 27.0-32.0 [facility] Mean corpuscular hemoglobin concentration (MCHC) determinationOrdered By: Fransico Velasquez on 08-31-2024 MCHC (RBC) [Mass/Vol] 33.1 g/dL 32-36 [facility] Mean platelet volume determi nationOrdered By: Fransico Velsaquez on 08-31-2024 Platelet mean volume (Bld) [Entitic vol] 9.5 fL 6.2-12.0 [facility] Monocyte percentageOrdered B y: Fransico Velasquez on 08-31-2024 Monocytes/100 WBC (Bld) 11.8 % High 0-10 [facility] Neutrophil percentageOrdered By: Fransico Velasquez on 08-31-2024 Neutrophils/100 WBC (Bld) 58.0 % 47-70 [facility] Nucleated red blood cell per centageOrdered By: Fransico Velasquez on 08-31-2024 Nucleated RBC/100 WBC (Bld) [Ratio] 0 % 0-5 [facility] Platelet countOrdered By: Sona Velasquez on 08-31-2024 Platelets (Bld) [#/Vol] 212 10*3/uL 150-450 [facility] Potassium measurementOrdered By: Fransico Velasquez on 08-31-2024 Potassium [Moles/Vol] 3.8 mmol/L 3.5-5.1 [facility] RBC Auto (Bld) [#/Vol]Ordere d By: Fransico Velasquez on 08-31-2024 RBC (Bld) [#/Vol] 5.82 10*6/uL 4.6-6.2 [facility] Serum anion gap measurementO rdered By: Fransico Velasquez on 08-31-2024 Anion gap [Moles/Vol] 6 mmol/L 5-15 [facility] Serum globulin measurementOr dered By: Fransico Velasquez on 08-31-2024 Globulin (S) [Mass/Vol] 3.6 g/dL 2.2-4.2 [facility] Serum or plasma alanine goyal otransferase (ALT) measurementOrdered By: Fransico Velasquez on 08-31-2024 ALT [Catalytic activity/Vol] 72 U/L High 16-61 [facility] Serum or plasma albumin tico urement (mass/volume)Ordered By: Fransico Velasquez on 08-31-2024 Albumin [Mass/Vol] 3.7 g/dL 3.2-5.0 [facility] Serum or plasma alkaline felipe sphatase measurementOrdered By: Fransico Velasquez on 08-31-2024 ALP [Catalytic activity/Vol] 73 U/L 45-117 [facility] Serum or plasma calcium tico urement (mass/volume)Ordered By: Fransico Velasquez on 08-31-2024 Calcium [Mass/Vol] 9.0 mg/dL 8.5-10.1 [facility] Serum or plasma cholesterol measurement (mass/volume)Ordered By: Fransico Velasquez on 08-31-2024 Cholesterol [Mass/Vol] 198 mg/dL <200 [facility] Comment on above: <200 mg/dL Desirable 200-240 mg/dL Borderline >240 mg/dL High Risk Serum or plasma creatinine m easurement (mass/volume)Ordered By: Fransico Velasquez on 08-31-2024 Creatinine [Mass/Vol] 0.92 mg/dL 0.70-1.30 [facility] Comment on above: The validity of the calculated GFR & GFRAA in patients over 70 years has not been determined. Clinical correlation is essential. Serum or plasma urea nitroge n measurement (mass/volume)Ordered By: Fransico Velasquez on 08-31-2024 Urea nitrogen [Mass/Vol] 10 mg/dL 7-18 [facility] Sodium levelOrdered By: Fransico Velasquez on 08-31-2024 Sodium [Moles/Vol] 140 mmol/L 136-145 [facility] Total proteinOrdered By: Lesli Velasquez on 08-31-2024 Protein [Mass/Vol] 7.3 g/dL 6.4-8.2 [facility] Triglycerides measurementOrd ered By: Fransico Velasquez on 08-31-2024 Triglyceride [Mass/Vol] 183 mg/dL <199 [facility] Comment on above: The drugs N-Acetylcy steine and Metamizole may falsely depress this assay.Serum Triglycerides Reference Interval Normal <150 mg/dL Borderline high 150 - 199 mg/dL High 200 - 499 mg/dL Very High > or = 500 mg/dL Very low density lipoprotein (VLDL) cholesterol measurementOrdered By: Fransico Velasquez on 08-31-2024 Very low density lipoprotein (VLDL) cholesterol measurement 37 mg/dL 5-40 [facility] VLDL Cholesterol 37 mg/dL -40 [facility] Vitamin D,25 Hydroxyon 08-31 Vitamin D 25-OH 6.7 ng/mL Normal [facility] Comment on above: Result Comment: Caitie min D 25(OH) Status Range Deficiency <20 ng/mL (50nmol/L) Insufficiency 20 - 30 ng/mL (50 - 75 nmol/L) Sufficiency 30 - 100 ng/mL (75 - 250 nmol/L) Toxicity >100 ng/mL (>250 nmol/L) Performed By: #### L 500.4050, L100.0100, L506.1000, L500.4100 ####[facility] [address] [place], [place], [address] White blood cell (WBC) count Ordered By: Fransico Velasquez on 08-31-2024 WBC (Bld) [#/Vol] 7.0 10*3/uL 4.4-11.0 [facility] Vital Signs Date Time Vital Sign Value Performing Clinician Bong medina 12-25-2024 08:55-0400 Body temperature 97.6 [degF] Dr. Fransico Velasquez DO Work Phone: [facility] 12-25-2024 08:55-0400 Diastolic blood pressure 85 mm[Hg] Dr. Fransico Velasquez DO Work Phone: [facility] 12-25-2024 08:55-0400 Heart rate 82 /min Dr. Fransico Velasquez DO Work Phone: [facility] 12-25-2024 08:55-0400 Respiratory rate 16 /min Dr. Fransico Velasquez DO Work Phone: [facility] 12-25-2024 08:55-0400 SaO2% (BldA) [Mass fraction] 98 % Dr. Fransico Velasquez DO Work Phone: [facility] 12-25-2024 08:55-0400 Systolic blood pressure 132 mm[Hg] Dr. Fransico Velasquez DO Work Phone: [facility] 12-25-2024 07:22-0400 Body height 177.[address] Fransico Velasquez DO Work Phone: [facility] 12-25-2024 07:22-0400 Body mass index (BMI) [Ratio] 42.2 kg/m2 Dr. Fransico Velasquez DO Work Phone: [facility] 12-25-2024 07:22-0400 Body weight 133.[address] Fransico Velasquez DO Work Phone: [facility] 12-13-2024 13:27-0400 Body height 177.[address] Fransico Velasquez DO Work Phone: [facility] 12-13-2024 13:27-0400 Body mass index (BMI) [Ratio] 43.6 kg/m2 Dr. Fransico Velasquez DO Work Phone: [facility] 12-13-2024 13:27-0400 Body temperature 97.9 [degF] Dr. Fransico Velasquez DO Work Phone: [facility] 12-13-2024 13:27-0400 Body weight 137.[address] Fransico Velasquez DO Work Phone: [facility] 12-13-2024 13:27-0400 Diastolic blood pressure 79 mm[Hg] Dr. Fransico Velasquez DO Work Phone: [facility] 12-13-2024 13:27-0400 Heart rate 71 /min Dr. Fransico Velasquez DO Work Phone: [facility] 12-13-2024 13:27-0400 Respiratory rate 18 /min Dr. Fransico Velasquez DO Work Phone: [facility] 12-13-2024 13:27-0400 SaO2% (BldA) [Mass fraction] 97 % Dr. Fransico Velasquez DO Work Phone: [facility] 12-13-2024 13:27-0400 Systolic blood pressure 133 mm[Hg] Dr. Fransico Velasquez DO Work Phone: [facility] 03-22-2023 09:31-0400 Body height 180.[address] [facility] 03-22-2023 09:31-0400 Body mass index (BMI) [Ratio] 38.7 kg/m2 [facility] 03-22-2023 09:31-0400 Body temperature 97.9 [degF] [facility] 03-22-2023 09:31-0400 Body weight 126.[address] [facility] 03-22-2023 09:31-0400 Diastolic blood pressure 90 mm[Hg] [facility] 03-22-2023 09:31-0400 Heart rate 108 /min [facility] 03-22-2023 09:31-0400 Respiratory rate 18 /min [facility] 03-22-2023 09:31-0400 SaO2% (BldA) [Mass fraction] 98 % [facility] 03-22-2023 09:31-0400 Systolic blood pressure 140 mm[Hg] [facility] Encounters Encounter Date Encounter Type Care Provider Facility Start: 01-15-2025 ambulatory Milly Myrick Facility: [facility] Start: 01-10-2025 End: 01-10-2025 Patient encounter procedure Milly DOMINGUEZ -[facility] Work Phone: Start: 01-10-2025 End: 01-10-[address] Fransico Velasquez DO Work Phone: [facility] Work Phone: Start: 12-25-2024 ambulatory Vi Moncada Facility:[facility] [place] Start: 12-25-2024 Non-patient / Non-visit Dr. Cam Cooley MD -[facility] Start: 12-25-2024 End: 12-25-2024 Admission to same day surgery center Dr. Cam Cooley MD -Endoscopy Work Phone: Start: 12-25-2024 End: 12-25-[address] Fransico Velasquez DO Work Phone: [facility] Work Phone: Start: 12-13-2024 End: 12-13-[address] Cam Cooley MD -[facility] Work Phone: Start: 12-13-2024 End: 12-13-[address] Fransico Velasquez DO Work Phone: [facility] Work Phone: Start: 12-12-2024 End: 12-12-[address] Fransico Velasquez DO Work Phone: [facility] Work Phone: Start: 12-12-2024 End: 12-12-2024 Patient encounter procedure Vi Moncada [employer] [facility] Work Phone: Start: 12-12-2024 End: 12-12-2024 ambulatory Vi Moncada Facility:[facility] Start: 10-29-2024 End: 10-29-[address] Fransico Velasquez DO Work Phone: [facility] Work Phone: Start: 10-29-2024 End: 10-29-2024 Patient encounter procedure Vi Moncada [employer]-[facility] Start: 10-29-2024 End: 10-29-2024 ambulatory Vi Moncada Facility:[facility] Start: 09-27-2024 Encounter for genera l adult medical examination with abnormal findings Fransico [facility] Start: 08-31-2024 End: 08-31-2024 Patient encounter procedure Jyothi Evans ROHITH Start: 08-31-2024 End: 08-31-2024 ambulatory Fransico Velasquez Facility:[facility] Start: 03-22-2023 End: 03-22-2023 Emergency department patient visit [facility] Work Phone: Procedures Date Procedure Procedure Detail Performing Clinician Start: 12-25-[address] Fransico garcia DO Work Phone: Start: 12-12-[address] e detection Dr. Fransico Velasquez DO Work Phone: Start: 12-12-[address] Fransico Velasquez DO Work Phone: Start: 12-12-[address] Fransico Velasquez DO Work Phone: Start: 12-12-20[address]va [address] parasites identification [address] Fransico Velasquez DO Work Phone: Start: [...] Treatment Date Care Activity Detail Author Start: 12-25-2024 Colonoscopy w/biopsy single/multiple COLONOSCOPY AND BIOPSY [facility] Start: 12-25-2024 Colsc flx w/rmvl of tumor polyp lesion snare tq COLONOSCOPY W/LESION REMOVAL [facility] Start: 12-25-2024 Patient discharge [facility] Start: 12-12-2024 Clostridioides difficile (PCR) Clostridioides difficile (PCR) [facility] Start: 12-12-2024 Enteric Bacteriology Enteric Bacteriology [facility] Start: 12-12-2024 Ova and Parasites Ova and Parasites [facility] Start: 12-12-2024 Stool Lactoferrin Stool Lactoferrin [facility] Start: 10-29-2024 [facility] Lopeno IgE Ab [Units/volume] in Serum [facility] Beef IgE Ab [Units/volume] in Serum [facility] Chicken IgE Ab [Units/volume] in Serum [facility] Chocolate IgE Ab [Units/volume] in Serum [facility] Clostridioides diffi cile DNA [Presence] in Unspecified specimen by ANDERSON with probe detection [facility] Codfish IgE Ab [Units/volume] in Serum [facility] Essex IgE Ab [Units/volume] in Serum [facility] Cow milk IgE Ab [Units/volume] in Serum [facility] Egg white RAST [facility] Elastase.pancreatic [Presence] in Stool [facility] Fat [Presence] in Stool [facility] Food RAST [facility] Immunoglobulin measurement [facility] Lactoferrin [Presenc e] in Stool by Immunoassay [facility] Nucleic acid assay [facility] Ova OR parasites identification [facility] Patient Education ED Laceration, Hand: All Closures [facility] Work Phone: Patient referral [facility] Work Phone: Peanut IgE Ab [Units/volume] in Serum [facility] Pork IgE Ab [Units/volume] in Serum [facility] Protein measurement [facility] [facility] [place] IgE Ab [Units/volume] in Serum [facility] Laporte IgE Ab [Units/vo lume] in Serum [facility] La Farge IgE Ab [Units/volume] in Serum [facility] Shrimp IgE Ab [Units/volume] in Serum [facility] Soybean IgE Ab [Units/volume] in Serum [facility] Tuna IgE Ab [Units/volume] in Serum [facility] US Gallbladder [facility] Wheat IgE Ab [Units/volume] in Serum [facility] Whole Egg IgE Ab [Units/volume] in Serum [facility] Immunizations Immunization Date Immunization Notes Care Provider Fa cility 03-22-2023 tetanus toxoid, redu janelle diphtheria toxoid, and acellular pertussis vaccine, adsorbed [facility] Payers Date Payer Category Payer Self-pay [id number] 2024 Unknown [id number] Unknown [facility] [id number] Unknown [id number] 2.16.8 [id number] Unknown [id number] 2.16.8 [id number] Unknown [id number] 2.16.8 [id number] Unknown [id number] 2.16.8 [id number] Unknown [id number] 2.16.8 [id number] Unknown [id number] 2.16.8 [id number] Unknown [id number] 2.16.8 [id number] Unknown [id number] 2.16.8 [id number] Social History Date Type Detail Facility Start: 03-22-2023 [facility] Start: 1990 Sex Assigned At Male [facility] Start: 03-22-2023 End: 12-13-2024 Tobacco smoking status NHIS Current some day smoker [facility] Start: 2024 Sex Male (finding) [facility] Start: 12-20-2024 [facility]finding[facility] Goals Date Patient Goal Desired Activity /State Mental Status Date Assessment Result Facility 12-25-2024 Cognitive function Voice/Name;Touch/Shaki ng [facility] Work Phone: Clinical Notes 12-13-2024 to 12-25-2024 Note Date & Type Note Facility 12-25-2024 Procedure note [facility] 12-25-2024 Procedure note [facility] 12-25-2024 Consult note [facility] 12-25-2024 History and physi nelda note [facility] 12-25-2024 Note [facility] Medical Records Department [address] [place] [address] History Physical Exam 12/25/24 0809 MR#: [id number] Acct: [id number] Name: CYNDEE GONZALEZ Rep #: [id number] : 1990 34 From: Cam Cooley MD PCP: ALBERTO Aguiar Status:[facility] Location: [place] [address] HPI - General General Date of Admission: 12/25/24 Date of Service: 12/25/24 Chief Complaint: diarrhea HPI Narrative The patient is a 34-year-old male who [...] that are more problematic. He presents today for colonoscopy. [facility] Medical History PTSD (post-traumatic stress disorder) Depression Anxiety Electronic cigarette use Heartburn Gastric reflux Hx of fracture of finger Acid reflux Abdominal pain Diarrhea Hx of fracture of ankle Home Medications ???Medication ???Instructions ???Recorded ???Last Taken ???Type cholecalciferol (vitamin D3) 125 125 mcg PO QDAY 12/13/24 Unknown H istory mcg (5,000 unit) capsule fluoxetine 40 mg capsule 40 mg PO QHS 12/13/24 Unknown Hist ory pantoprazole 20 mg tablet,delayed 20 mg PO QAM 12/13/24 Unknown His tory release Allergy/AdvReac Type Severity Reaction Status Date / Time No Known Allergies Allergy Verified 12/25/24 07:21 Surgical History History of hand surgery Social History Smoking Status: Current every day smoker tobacco type: e-cigarettes alcohol intake: never substance use type: does not use Vital Signs Vital Signs Vital Signs: 12/25/24 07:22 12/25/24 07:22 12/25/24 07:57 Temperature 98.8 F 98.8 F Temperature Source Temporal Pulse Rate 90 90 Respiratory Rate 16 16 Respiratory Pattern Normal Blood Pressure 133/82 H 133/82 H Blood Pressure Mean 99 Blood Pressure Source Monitor Blood Pressure Position Semi-Fowlers Blood Pressure Location Right Arm Pulse Ox 96 96 Oxygen Delivery Method Room Air Weight Weight: 294 lb 1.546 oz Body Mass Index (BMI) 42.2 Physical Exam Const alert, oriented x3 and no apparent distress Assessment Plan Assessment/Plan (1) Diarrhea: PLAN: Plan colonoscopy today 12/25/24 0810 Cosigner Signature (if applicable): CC: ALBERTO Moncada; Dr. Cam Cooley MD Signed [facility] 12-25-2024 Consult note [facility] 12-13-2024 Evaluation note Diagnosis Onset Date Resolution Diarrhea acute December 13, 2024 1:15pm [facility] Work Phone: 1(598) 949-373305-29-2025 Evaluation note* Diagnosis Onset Date Resolution Status Admit Date Diarrhea acute December 13, 2024 1:15pm Diarrhea acute December 25 6:58am [facility] Work Phone: 1(995) 350-835205-29-2025 Evaluation note* Diagnosis Onset Date Resolution Status Admit Date Diarrhea acute December 13, 2024 1:15pm Diarrhea acute December 25 6:58am Abdominal pain acute January 10, 2025 8:36am Acid reflux acute January 10 8:36am Diarrhea acute January 10 8:36am [facility] Work Phone: 1(655) 375-675905-29-2025 [facility] [address] [place] [id number] OFFICE VISIT Date of Service: 12/13/24 MR#: [id number] Acct: [id number] Name: CYNDEE GONZALEZ Rep #: [id number] : 1990 Provider: Dr. Gurvinder Cooley MD Age/Sex: 34/M Location: [facility] Status: Signed Intake Vital Signs 03/22/23 09:31 [...] as though [facility] and thus far workup has been negative. Itsounds as though his stools were just recently sent off for cultures but no results have been resulted at this point. He was recommendedto have a diagnostic colonoscopy to further evaluate his symptoms. He denies any black ortarry stool s. No mucus in his stools. He denies any family history of colon polyps or colon cancers. No familyhistory of Crohn's disease or ulcerative colitis etc. [...] cough, No COPD, No asthma, No emphysema andNo wheezing Gastro Gastrointestinal: Yes abdominal pain, No [...] acute distress Nutritional Appearance: obese and overweight HENMT Head: normal to inspection Eyes General: appearance [...] vis,new,level 4 Diagnoses Diarrhea R19.7 12/13/24 1342 k > Date _ Cam Cooley MD Cosigner Signature: Date (if applicable) CC: Dr. Fransico Velasquez, DO ~ [facility]05-29-2025 Progress note Author Cam Cooley [facility] Note Date/Time December 13, 2024 1:42p [facility] [address] [place] [address] OFFICE VISIT Date of Service: 12/13/24 MR#: [id number] Acct: [id number] Name: CYNDEE GONZALEZ Rep #: [id number] : 1990 Provider: Dr. Gurvinder Cooley MD Age/Sex: 34/M Location: [facility] Status: Signed Intake Vital Signs 03/22/23 09:31 [...] he has tried Imodium without any success long- term. This may improve his symptoms for less [...] acute distress Nutritional Appearance: obese and overweight [facility] Head: normal to inspection Eyes General: appearance [...] Signature: Date (if applicable) CC: Dr. Fransico Velasquez, DO ~ [facility] [employer] [facility] Work Phone: Consult note Author Amandeep Loving [facility] Note Date/Time December 25, 2024 7:57 am [facility] Medical Records Department [address] [place] [address] Pre-Anesthesia Evaluation 12/25/24 0757 MR#: [id number] Acct: [id number] Name: CYNDEE GONZALEZ Rep #:[id number] : 1990 34 From: Amandeep Loving MD PCP: ALBERTO Aguiar Status:[facility] Y Race: C Location: [place] [address] ASA Classification* ASA Classification ASA Classification: 3 Assessment & Plan Anesthesia* Anesthesia Assessment Anesthesia Assessment: Discussed sedation and/or anesthesia options, risks, benefits, and alternatives with patient/parents/legal guardian/POA. Questions invited. The patient/parents/legal guardian/POA seems to understand and agrees to proceedwith anesthesia plan. Reviewed the physical assessment, medical history, allergy history and patient home medications list prior to surgery/procedure/anesthetic and documented any changes. Performed airway and anesthesia risk assessments. Anesthesia Type Anesthesia Type: MAC Anesthesia Focused Assessment* Temperature: 98.8 F Pulse Rate: 90 Blood Pressure: 133/82 Respiratory Rate: 16 Pulse Ox: 96 Airway Assessment Mouth opens: >3 cm Mallampati Score: II Labs Anesthesia Preop lab: CBC WBC 7.0 K/mm3 (4.4-11.0) 08/31/24 11:21 08/31/24 RBC 5.82 M/mm3 (4.6-6.2) 08/31/24 11:21 08/31/24 Hgb 17.2 g/dL (13.0-16.5) H 08/31/24 11:21 5 Hct 51.9 % (40-54) 08/31/24 11:21 08/31/24 Plt Count 212 K/mm3 (150-450) 08/31/24 11:21 08/31/24 CHEMISTRY Potassium 3.8 mmol/L (3.5-5.1) 08/31/24 11:21 08/31/24 Sodium 140 mmol/L (136-145) 08/31/24 11:21 08/31/24 BUN 10 mg/dL (7-18) 08/31/24 11:21 08/31/24 Creatinine 0.92 mg/dL (0.70-1.30) 08/31/24 11:21 08/31/24 Glucose 95 mg/dL (74-106) 08/31/24 11:21 08/31/24 TSH 1.640 uIU/mL (0.300-4.200) 10/29/24 09:07 10/16 11/09 COAG Pre-Assessment Diagnosis/Proposed Procedure Planned Operative Procedure(s): CSCOPE Anesthesia History Anesthesia History - opto mechanical technician: Anesthesia History - opto mechanical technician Hx Hospitalization No 12/20/24 14:27 Any Problems With Anesthesia No 12/20/24 14:27 Cholinesterase deficiency No 12/20/24 14:27 You/Your Family Experience No 12/20/24 14:27 fever (hyperthermia) with Relationship Recent Exposure to Contagious No 12/25/24 07:22 Disease Does patient have nerve No 12/20/24 14:27 stimulator Patient instructed to have device shut off --Does patient have Pacemaker No 12/25/24 07:22 or ICD? When Was Last Pacemaker Check QUESTION #4 FULL TEXT: You/Your Family Experience fever (hyperthermia) with Anesthesia Last Oral Intake Last Oral intake: Last Oral Intake NPO since 23:00 12/25/24 07:22 Meds taken in AM with sips of No 12/25/24 07:22 water? Meds patient instructed to take am of surgery PONV PONV - opto mechanical technician: PONV - opto mechanical technician Female No 12/20/24 14:27 HX of Motion Sickness No 12/20/24 14:27 HX of N/V After Surgery No 12/20/24 14:27 Non-Smoker No 12/20/24 14:27 Duration of Surgery greater No 12/20/24 14:27 than 60 minutes Number of Risk Factors PONV Score Height & Weight Height & Weight: Anesthesia: Height & Weight Height 5 ft 10 in 12/25/24 07:22 Weight: 133.4 kg 12/25/24 07:22 Body Mass Index (BMI) 42.2 12/25/24 07:22 Respiratory Assessment Respiratory Assessment - opto mechanical technician: Respiratory Tract Infection Hx - opto mechanical technician Hx Respiratory Tract Infection No 12/20/24 14:27 STOP Sleep Apnea STOP Sleep Apnea - opto mechanical technician: STOP Sleep Apnea - opto mechanical technician Hx Hypertension No 12/20/24 14:27 Hx Sleep Apnea No 12/20/24 14:27 CPAP BIPAP Do you snore loudly (louder Yes 12/20/24 14:27 than talking or can be heard Do you often feel tired/ Yes 12/20/24 14:27 fatigued/ sleepy during daytime? Has anyone observed you stop No 12/20/24 14:27 breathing during sleep? STOP Results Positive 12/20/24 14:27 QUESTION #5 FULL TEXT : Do you snore loudly (louder than talking or can be heard through closed doors)? 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 Specify any problems Hx of Preganancy in last 3 N/A 12/20/24 14:27 Months Nurse Filling Out Transfusion NBUCHER 12/20/24 14:27 & Questions: Date: 12/20/24 12/20/24 14:27 Time: 14:28 12/20/24 14:27 Patient unable to answer at this time (ie. confused, unrespo /Reproduction History /Reproductive History - opto mechanical technician: /Reproductive Hx- opto mechanical technician Hx Now No 12/20/24 14:27 Gestational Age (in weeks): EDC: Hx Hx Para Hx Section SAB No 12/20/24 14:27 Active Medications Active Medications: Current Medications Generic Name Dose Route Start Last Admin Trade Name Freq PRN Reason Stop Dose Admin Lactated Ringer's 1,000 mls @ 15 mls/hr 12/25/24 07:15 12/25/24 07:28 IV 15 mls/hr .Q48H ROSSANA Administration PFSH Medical History PTSD (post-traumatic stress disorder) Depression Anxiety Electronic cigarette use Heartburn Gastric reflux Hx of fracture of finger Acid reflux Abdominal pain Diarrhea Hx of fracture of ankle Home Medications ?Medication ?Instructions ?Recorded ?Last Taken ?Type cholecalciferol (vitamin D3) 125 125 mcg PO QDAY 12/13 Unknown History mcg (5,000 unit) capsule fluoxetine 40 mg capsule 40 mg PO QHS 12/13/24 Unknow n History pantoprazole 20 mg tablet,delayed 20 mg PO QAM 5 Unknown History release Allergy/AdvReac Type Severity Reaction Status Date / Time No Known Allergies Allergy Verified 12/25/24 07:21 Surgical History History of hand surgery Social History Smoking Status: Current every day smoker tobacco type: e-cigarettes alcohol intake: never substance use type: does not use Review of Systems (Anesthesia) ROS Narrative System reviewed and no additional complaints, except as documented. 12/25/24 0757 <Electronically signed by Amandeep Loving MD > Date _ Amandeep Sevillaignroxana Signature: Date CC: ~ Signed [facility] Work Phone: Consult note Author Mariam Nunes [facility] Note Date/Time December 25, 2024 8:45 am [facility] Medical Records Department [address] [place] [address] Anesthesia Postop Eval I 12/25/24844 MR#: [id number] Acct: [id number] Name: CYNDEE GONZALEZ Rep #:[id number] : 1990 34 From: Mariam Nunes CRNA PCP: ALBERTO Aguiar Status:[facility] Y Race: C Location: [place] [address] Anesthesia: Postop Eval I Current Vital Signs Temperature: 97.1 F Pulse Rate: 72 Blood Pressure: 110/62 Respiratory Rate: 18 Pulse Ox: 100 Assessment Airway patent: Yes Spontaneous unlabored respirations: Yes nausea: No Vomiting: No Anesthesia Complication: No Fluid Hydration Crystalloid volume administer (ml): 400 Total IV fluid infused: 400 Progress Note Anesthesia document: Postop Eval 1 completed: Yes 12/25/24844 <Electronically signed by Mariam arteaga BEAD STRINGER> Date _ Mariam Nunes CRNA Cosigner Signature: Date CC: ~ Signed [facility] Work Phone: Evaluation noteNo assessment information available [facility] Work Phone: History and physical note Author Cam Cooley [facility] Note Date/Time December 25, 2024 8:10 am [facility] Medical Records Department [address] [place] [address] History & Physical Exam 12/25/24808 MR#: [id number] Acct: [id number] Name: CYNDEE GONZALEZ Rep #:[id number] : 1990 34 From: Cam Cooley MD PCP: Vi Moncada, VERONICA-C Status:[facility] Location: [place] [address] HPI - General General Date of Admission: 12/25/24 Date of Service: 12/25/24 Chief Complaint: diarrhea HPI Narrative The patient is a 34-year-old male who [...] he has tried Imodium without any success long- term. This may improve his symptoms for less than a day only to have recurrence of diarrhea. He has not noticed any certain types of foods that are more problematic. He presents today for colonoscopy. [facility] Medical History PTSD (post-traumatic stress disorder) Depression Anxiety Electronic cigarette use Heartburn Gastric reflux Hx of fracture of finger Acid reflux Abdominal pain Diarrhea Hx of fracture of ankle Home Medications ?Medication ?Instructions ?Recorded ?Last Taken ?Type cholecalciferol (vitamin D3) 125 125 mcg PO QDAY 12/13 Unknown History mcg (5,000 unit) capsule fluoxetine 40 mg capsule 40 mg PO QHS 12/13/24 Unknow n History pantoprazole 20 mg tablet,delayed 20 mg PO QAM 5 Unknown History release Allergy/AdvReac Type Severity Reaction Status Date / Time No Known Allergies Allergy Verified 12/25/24 07:21 Surgical History History of hand surgery Social History Smoking Status: Current every day smoker tobacco type: e-cigarettes alcohol intake: never substance use type: does not use Vital Signs Vital Signs Vital Signs: 12/25/24 07:22 12/25/24 07:22 12/25/24 07:57 Temperature 98.8 F 98.8 F Temperature Source Temporal Pulse Rate 90 90 Respiratory Rate 16 16 Respiratory Pattern Normal Blood Pressure 133/82 H 133/82 H Blood Pressure Mean 99 Blood Pressure Source Monitor Blood Pressure Position Semi-Fowlers Blood Pressure Location Right Arm Pulse Ox 96 96 Oxygen Delivery Method Room Air Weight Weight: 294 lb 1.546 oz Body Mass Index (BMI) 42.2 Physical Exam Const alert, oriented x3 and no apparent distress Assessment & Plan Assessment/Plan (1) Diarrhea: PLAN: Plan colonoscopy today 12/25/24 0810 <Electronically signed by Cam Cooley MD> Cosigner Signature (if applicable): CC: ALBERTO Moncada; Dr. Cam Cooley MD~ Signed [facility] Work Phone: Hospital Discharge instructions Additional Instructions X-ray negative for tetanus updated. 2 sutures placed to your hand. Follow-up with your doctor in 7 to 10 days for wound check and suture removal.[facility] Work Phone: Reason for referral (narrative)No reason for referral information availableWDay[facility] Work Phone: Chief Complaint and Reason for Visit Chief Complaint RIGHT HAND Chief Complaint Admit Date STOOL December 12, 2024 12:36 pm DIARRHEA/GAS December 13, 2024 1:15p m Reason for Visit Admit Date Diarrhea December 13, 2024 1:15p m Reason for Visit Admit Date Diarrhea December 13, 2024 1:15p m Diarrhea December 25, 2024 6:58 am Chief Complaint Admit Date STOOL December 12, 2024 12:36 pm DIARRHEA/GAS December 13, 2024 1:15p m CHRONIC Diarrhea January 10, 2025 8:36 am Reason for Visit Admit Date Diarrhea December 13, 2024 1:15p m Diarrhea December 25, 2024 6:58 am Abdominal pain January 10, 2025 8:36 am Acid reflux January 10, 2025 8:36 am Diarrhea January 10, 2025 8:36 am Advance Directives No Advanced Directives Records Found Advance Directive Response Recorded Date/ Time Living Will No March 22 023 10:35am Power of [place] No March 22, 2023 10:35am Advance Directive Response Recorded Date/ Time Do you have a Healthcare Power of [place]? No December 20, 2024 2:27pm Summary Purpose Family History No Family History [...] Physician Family Provider Active Dr. Fransico Velasquez , DO Primary Care Provider Active Team Status: Inactive Member Role Status Dates Dr. Topher Nolasco DO Emergency Provider Active Dr. Fransico Velasquez , DO Primary Care Provider Active Team Status: Inactive Member Role Status Dates Dr. Fransico Velasquez , DO Primary Care Provider Active Start: December 12, 2024 End: December 12, 2024 Vicornelia Moncada , CROWN ASSEMBLY MACHINE OPERATOR-C Attending Provider Active St art: December 12, 2024 End: December 12, 2024 Vicornelia Moncada , CROWN ASSEMBLY MACHINE OPERATOR-C Referring Provider Active St art: December 12, 2024 End: December 12, 2024 Team Status: Active Member Role Status Dates Vicornelai Moncada , CROWN ASSEMBLY MACHINE OPERATOR-C Primary Care Provider Active Team Status: Inactive Member Role Status Dates Dr. Cam Cooley MD Attending Provider Active Start: December 25, 2024 End: December 25, 2024 Vicornelia Moncada , CROWN ASSEMBLY MACHINE OPERATOR-C Primary Care Provider Active Start: December 25, 2024 End: December 25, 2024 Vicornelia Moncada , CROWN ASSEMBLY MACHINE OPERATOR-C Referring Provider Active St art: December 25, 2024 End: December 25, 2024 Team Status: Active Member Role Status Dates Dr. Cam Cooley MD Attending Provider Active Start: December 25, 2024 Dr. Cam Cooley MD Other Provider Active St art: December 25, 2024 Vi Moncada CROWN ASSEMBLY MACHINE OPERATOR-C Primary Care Provider Active Start: December 25, 2024 Vi Moncada CROWN ASSEMBLY MACHINE OPERATOR-C Referring Provider Active St art: December 25, 2024 Team Status: Inactive Member Role Status Dates Vicornelia Moncada CROWN ASSEMBLY MACHINE OPERATOR-C Primary Care Provider Active Start: January 10, 2025 End: January 10, 2025 Vi Moncada CROWN ASSEMBLY MACHINE OPERATOR-C Referring Provider Active St art: January 10, 2025 End: January 10, 2025 Milly Myrick NP-C Attending Provider Active S tart: January 10, 2025 End: January 10, 2025 Goals (unrecognized section and content) Goals may be documented in a n alternate sectionGoals may be documented in an alternate sectionGoals may be documented in an alternate sectionGoals may be documented in an alternate section (unrecognized sect ion and content) No Status Records Found INFORMATION SOURCE (unrecogn ized section and content) DATE CREATED AUTHOR 01/10/[address] [facility] FOR RECORDS PERTAINING TO PATIENTS WHO [...] BE BASED ON THE PRIMARY CLINICAL RECORDS. [employer] provides no warranty or guarantee of the accuracy or completeness of information in this document.
[2025-01-16 10:08] LABS: Anti-Chromatin <0.2 AI (0.0-0.9); Anti-Jo <0.2 AI (0.0-0.9); Anti-dsDNA Ab <1 IU/mL (0-9); SJOGREN'S Anti-SS-A test < 0.2 AI (0.0-0.9); SJOGREN'S Anti-SS-B test < 0.2 AI (0.0-0.9)
[2025-01-21 15:08] LABS: ACCA 100 units (0-90); ALCA 12 units (0-60); AMCA 44 units (0-100); Immunoglobulin A 201 mg/dL (90-386); Immunoglobulin G 779 mg/dL (603-1613); Immunoglobulin M 60 mg/dL (20-172)
== END | disposition home or self-care (01) ==
PROVIDERS: PCP Nurse Practitioner Family
DX: R20.0 Anesthesia of skin (principal); M54.6 Pain in thoracic spine; M54.2 Cervicalgia
CPT/HCPCS: 36415; 72040; 72070; 76705; 82784; 82785; 83516; 86036; 86225; 86235; 86671

== ENCOUNTER → 2025-01-23 | Outpatient (CLI) | payer MEDICAID, SELFPAY ==
[2025-01-27 00:07] LABS: Calprotectin, Stool 196 ug/g (0-120); Fats, Neutral Normal (.); Fats, Total Increased (.); Pancreatic Elastase, Fecal > 800 (>200)
== END | disposition home or self-care (01) ==
LOC: LABSPEC 12:59
PROVIDERS: PCP Nurse Practitioner Family
DX: K21.9 Gastro-esophageal reflux disease without esophagitis (principal); R10.9 Unspecified abdominal pain; R19.7 Diarrhea, unspecified
CPT/HCPCS: 82653; 82705; 83993

== ENCOUNTER → 2025-03-12 | Outpatient (CLI) | payer MEDICAID, SELFPAY ==
--- NOTE | 2025-03-12 11:19 | NEURO ---
NCS and/or EMG Patient Report Ordering Doctor: Cornelius Draper DATE OF SERVICE: 03/12/25 Clinical Summary: 34 year old male patient with symptoms of numbness/tingling in the 4th and 5th digits of the right hand. Nerve Conduction Studies Summary: Nerve conduction studies were performed in the right upper extremity. The right median-D5 SNAP distal latency was prolonged. There was right ulnar motor conduction velocity slowing across the elbow. Needle Examination Summary: Needle examination of select muscles of the right upper extremity was normal. Impression: This is an abnormal study. There is electrodiagnostic evidence of the following - 1) Right ulnar mononeuropathy at the elbow, with motor demyelinating features. 2) Mild, right median mononeuropathy at the wrist (carpal tunnel syndrome), with sensory fiber demyelination There is no electrodiagnostic evidence of a right cervical radiculopathy. Multi Select Codes Neurology Neurology Interp Codes: 60776-71 Musc test done w/n test comp (interp) (1) and 10044-66 Nrv cndj test 7-8 studies (interp)
== END | disposition home or self-care (01) ==
LOC: PSN 10:31
PROVIDERS: PCP Nurse Practitioner Family; Referring Provider Orthopaedic Surgery Sports Medicine; Visit Provider Orthopaedic Surgery Sports Medicine
DX: G56.01 Carpal tunnel syndrome, right upper limb (principal)
CPT/HCPCS: 95886; 95910